=== PATIENT | male | born 1975 | race Caucasian/White ===

== ENCOUNTER 2021-02-14 08:30 | Inpatient (IN) ==
--- NOTE | 2021-02-14 08:54 | Emergency Department Note ---
Impression & Plan Pneumoperitoneum, Perforated abdominal viscus ED Provider Note NAME: APARNA NORMAN AGE: 45 SEX: M : 1975 ARRIVES VIA: Walk-In INFORMANT: Patient, ED PROVIDER(S): Isma Senior MD Chief Complaint: Abdominal pain HPI: Patient does present with concern for abdominal pain that he describes in the lower midline abdomen ongoing for 6 days. Patient has had intermittent fevers as high as 105 but with hypothermia as low as 90. Patient has been feeling more fatigable. No history of tick bites, Lyme's, or or thyroid issues. Patient does have a remote history of a ruptured appendicitis as well as prior bowel obstruction. Patient states he has been passing stool and denies any blood in the urine or stool. Patient has been having loose stools on occasion. No dietary changes but the patient does have mild discomfort when he eats or drinks. Patient has taken Advil for the fever which has improved the fever but not the pain. Patient denies any testicular pain or swelling. Patient is not had any nausea or vomiting. Patient states with the prior bowel obstruction he did have associated nausea and vomiting. Patient does have heightened concern given the prior history of ruptured appendicitis. Patient denies any heavy lifting twisting or turning. The patient states that he might have small midline hernias. Patient does use tobacco but denies any alcohol or drug use. Patient is vaccinated for COVID-19. ROS: See HPI for pertinent positives and negatives. A total of 10 systems were revi ewed and otherwise negative. Past medical history: See below Surgical history: See below Social history: See below Physical Exam: GENERAL: NAD, wearing a mask, non-toxic. EYE EXAM: Normal conjunctiva. PERRL, no anisocoria and EOM's grossly intact w/o pain. NECK: Supple, no nuchal rigidity, no adenopathy, non-tender. No signs of meningismus. LUNGS: Clear to auscultation. Normal chest wall mechanics. HEART: NSR, no MRG. ABDOMEN: Abdomen soft, left lower quadrant and suprapubic discomfort without right lower quadrant pain, no upper abdominal pain, normo-active bowel sounds, no masses, no rebound or guarding. BACK: No CVA TTP. SKIN: No rashes and no bruising. UPPER EXTREMITIES: Upper extremities are grossly normal. LOWER EXTREMITIES: Grossly normal, no edema. NEURO EXAM: A&O x3, cranial nerves II-XII grossly intact, normal speech, moves all 4 extremities on command w/o issue. Differential diagnoses: Appendicitis, testicular torsion, infections, diverticulitis, UTI, obstruction, mesenteric ischemia, aortic pathology, inflammatory bowel disease, renal colic, PUD, pancreatitis, biliary pathology, hernia, volvulus, constipation, as well as other pathologies. Course: Patient was seen and evaluated the bedside. Full history physical exam was performed. Imaging Studies: See Below [Cardiac monitoring: An order was placed for continuous cardiac monitoring. The monitor shows a rate of 97 with sinus rhythm. MDM: Patient's blood work did show a white count of 16. Patient's hemoglobin 13.7 with a normal platelet count. Kidney function is unremarkable. Urinalysis does not show evidence of obvious infection or blood. Patient CT shows retroperitoneal free air. I did speak the on-call radiologist Dr. Gonzalez about this was noted that the patient likely has perforated viscus. I did speak with the on-call surgery team Pamela Denny PA-C and subsequently Dr. Jackson. The patient was to be taken to the operating room. Patient was admitted to the general surgical service. Past Med/Surg History Medical History Bowel obstruction Ruptured appendicitis Surgical History S/P appendectomy Social History Smoking Status: Current some day smoker Hx Alcohol Use: No Hx Substance Use: No Feels Safe at Home: Yes Immunizations: Vaccinated for COVID-19. Allergies Allergies Allergy/AdvReac Type Severity Reaction Status Date / Time No Known Allergies Allergy Unverified 02/14/21 09:18 Home Meds Home Medications Medication Instructions Recorded Confirmed multivitamin 1 tab PO DAILY 02/14/21 02/14/21 Results & Data (ED) Vital Signs Vital Signs - 24 hr 02/14/21 08:48 02/14/21 09:30 02/14/21 10:30 Temperature 36.8 C Temperature Source Oral Pulse Rate 114 H 110 H Pulse Rate [Left Finger] 91 H Pulse Rhythm Regular Regular Pulse Rhythm [Left Finger] Pulse Strength Normal Pulse Strength [Left Finger] Respiratory Rate 18 20 12 Respiratory Effort / Characteristics Non-Labored Spontaneous Respiratory Depth Normal Respiratory Pattern Regular Blood Pressure 189/92 H Blood Pressure [Left Arm] 136/86 Blood Pressure Mean 124 Blood Pressure Mean [Left Arm] 102 Blood Pressure Position Sitting Blood Pressure Position [Left Arm] Sitting Pulse Oximetry 98 98 97 Oxygen Delivery Method Room Air Sepsis Recent Fever Within 48 Hours No Sepsis New/Unexplained Change in Mental Status No Sepsis Action Taken by Nursing No Action Required 02/14/21 11:34 02/14/21 12:21 Temperature 37.5 C 37.2 C Temperature Source Oral Oral Pulse Rate Pulse Rate [Left Finger] 110 H 104 H Pulse Rhythm Pulse Rhythm [Left Finger] Regular Regular Pulse Strength Pulse Strength [Left Finger] Normal Normal Respiratory Rate 20 20 Respiratory Effort / Characteristics Non-Labored Spontaneous Non-Labored Spontaneous Respiratory Depth Normal Normal Respiratory Pattern Regular Blood Pressure Blood Pressure [Left Arm] 164/99 H 128/82 Blood Pressure Mean Blood Pressure Mean [Left Arm] 120 97 Blood Pressure Position Blood Pressure Position [Left Arm] Sitting Semi-fowlers Pulse Oximetry 98 96 Oxygen Delivery Method Room Air Room Air Sepsis Recent Fever Within 48 Hours Sepsis New/Unexplained Change in Mental Status Sepsis Action Taken by Group Home Medications Current Medication List: was personally reviewed by me Laboratory Data Attestation: I reviewed the patient's lab results. Result diagrams: 02/14/21 09:30 02/14/21 09:30 Lab Results 02/14/21 02/14/21 02/14/21 Range/Units 09:30 09:30 09:30 WBC 16.36 H (4.8-10.8) K/uL RBC 4.72 (4.7-6.1) M/uL Hgb 13.7 L (14.0-18.0) g/dL Hct 39.7 L (42-52) % MCV 84.1 (80-100) fL MCH 29.0 (25-34) pg MCHC 34.5 (32-36) g/dL RDW Std Deviation 45.1 (36.4-46.3) fL RDW Coeff of Ena 14.5 (11.5-14.5) % Plt Count 245 (130-400) K/uL MPV 9.4 (7.4-10.4) fL Immature Gran % (Auto) 0.4 % Neut % (Auto) 77.9 % Lymph % (Auto) 10.8 % Doddridge % (Auto) 8.9 % Eos % (Auto) 1.8 % Baso % (Auto) 0.2 % Neut # (Auto) 12.75 H (1.4-6.5) K/uL Lymph # (Auto) 1.76 (1.2-3.4) K/uL Dod[place]idge # (Auto) 1.46 H (0.11-0.59) K/uL Eos # (Auto) 0.29 (0-0.5) K/uL Baso # (Auto) 0.03 (0-0.2) K/uL Immature Gran # (Auto) 0.07 H (0.00-0.02) K/uL Sodium 138 (136-145) mmol/L Potassium 4.1 (3.5-5.1) mmol/L Chloride 108 H (98-107) mmol/L Carbon Dioxide 20 L (21-32) mmol/L Anion Gap 10.0 (3-11) BUN 17 (7-18) mg/dl Creatinine 1.16 (0.6-1.4) mg/dl Est Cr Clr Drug Dosing 109.8 ml/min Est GFR ( Amer) 88.9 ml/min Est GFR (Non-Af Amer) 76.7 ml/min BUN/Creatinine Ratio 14.3 (10-20) Glucose 114 H (70-99) mg/dl Calcium 8.9 (8.5-10.1) mg/dl Total Bilirubin 0.6 (0.2-1) mg/dl AST 23 (15-37) U/L ALT 43 (12-78) U/L Alkaline Phosphatase 90 (45-117) U/L Total Protein 7.6 (6.4-8.2) gm/dl Albumin 2.8 L (3.4-5.0) gm/dl Globulin 4.8 H (2.5-4.0) gm/dl Albumin/Globulin Ratio 0.6 L (0.9-2) Lipase 131 (73-393) U/L TSH 1.780 (0.300-4.500) uIu/ml Urine Color Dark Yellow Urine Appearance Clear (Clear) Urine pH 5.5 (4.5-7.5) Ur Specific Taylor 1.026 (1.000-1.030) Urine Protein Trace H (Negative) Urine Glucose (UA) Negative (Negative) Urine Ketones 1+ H (Negative) Urine Blood 1+ H (Negative) Urine Nitrite Negative (Negative) Urine Bilirubin 1+ H (Negative) Urine Urobilinogen Positive H (Negative) Ur Leukocyte Esterase Negative (Negative) Urine WBC (Auto) 1-5 (0-5) /hpf Urine RBC (Auto) 0-4 (0-4) /hpf U Hyaline Cast (Auto) 5-10 H (0-5) /lpf U Epithel Cells (Auto) 10-20 H (0-5) /lpf Urine Bacteria (Auto) Negative (Negative) COVID-19 Eval Order SARS-CoV-2 (PCR) (Negative) 02/14/21 02/14/21 Range/Units 11:14 11:14 WBC (4.8-10.8) K/uL RBC (4.7-6.1) M/uL Hgb (14.0-18.0) g/dL Hct (42-52) % MCV (80-100) fL MCH (25-34) pg MCHC (32-36) g/dL RDW Std Deviation (36.4-46.3) fL RDW Coeff of Ena (11.5-14.5) % Plt Count (130-400) K/uL MPV (7.4-10.4) fL Immature Gran % (Auto) % Neut % (Auto) % Lymph % (Auto) % Doddridge % (Auto) % Eos % (Auto) % Baso % (Auto) % Neut # (Auto) (1.4-6.5) K/uL Lymph # (Auto) (1.2-3.4) K/uL Dod[place]idge # (Auto) (0.11-0.59) K/uL Eos # (Auto) (0-0.5) K/uL Baso # (Auto) (0-0.2) K/uL Immature Gran # (Auto) (0.00-0.02) K/uL Sodium (136-145) mmol/L Potassium (3.5-5.1) mmol/L Chloride (98-107) mmol/L Carbon Dioxide (21-32) mmol/L Anion Gap (3-11) BUN (7-18) mg/dl Creatinine (0.6-1.4) mg/dl Est Cr Clr Drug Dosing ml/min Est GFR ( Amer) ml/min Est GFR (Non-Af Amer) ml/min BUN/Creatinine Ratio (10-20) Glucose (70-99) mg/dl Calcium (8.5-10.1) mg/dl Total Bilirubin (0.2-1) mg/dl AST (15-37) U/L ALT (12-78) U/L Alkaline Phosphatase (45-117) U/L Total Protein (6.4-8.2) gm/dl Albumin (3.4-5.0) gm/dl Globulin (2.5-4.0) gm/dl Albumin/Globulin Ratio (0.9-2) Lipase (73-393) U/L TSH (0.300-4.500) uIu/ml Urine Color Urine Appearance (Clear) Urine pH (4.5-7.5) Ur Specific Taylor (1.000-1.030) Urine Protein (Negative) Urine Glucose (UA) (Negative) Urine Ketones (Negative) Urine Blood (Negative) Urine Nitrite (Negative) Urine Bilirubin (Negative) Urine Urobilinogen (Negative) Ur Leukocyte Esterase (Negative) Urine WBC (Auto) (0-5) /hpf Urine RBC (Auto) (0-4) /hpf U Hyaline Cast (Auto) (0-5) /lpf U Epithel Cells (Auto) (0-5) /lpf Urine Bacteria (Auto) (Negative) COVID-19 Eval Order Covid19 at [facility] SARS-CoV-2 (PCR) NEGATIVE (Negative) Administered Medications Discontinued Medications Cefoxitin Sodium (Cefoxitin Sod 1 Gm Vial) Confirm Administered Dose 2,000 mg .ROUTE .STK-MED ONE Stop: 02/14/21 11:41 Last Admin: 02/14/21 15:04 Dose: 2,000 mg Documented by: [id number] Sodium Chloride (Nss) 500 mls @ 999 mls/hr IV .Q31M STA Stop: 02/14/21 09:45 Last Infusion: 02/14/21 10:07 Dose: 0 mls/hr Documented by: [id number] Admin: 02/14/21 09:36 Dose: 999 mls/hr Documented by: [id number] Piperacillin Sod/Tazobactam Sod (Zosyn) 4.5 gm in 120 mls @ 240 mls/hr IV NOW ONE Stop: 02/14/21 11:17 Last Infusion: 02/14/21 11:45 Dose: 0 mls/hr Documented by: [id number] Admin: 02/14/21 11:12 Dose: 240 mls/hr Documented by: [id number] Sodium Chloride (Nss 1000ml) 1,000 mls @ 999 mls/hr IV .Q1H1M ONE Stop: 02/14/21 11:48 Last Infusion: 02/14/21 11:57 Dose: 0 mls/hr Documented by: [id number] Admin: 02/14/21 10:56 Dose: 999 mls/hr Documented by: [id number] Ioversol (Optiray 320 100ml) 96 ml IV ONCE ONE Stop: 02/14/21 10:26 Last Admin: 02/14/21 10:26 Dose: 96 ml Documented by: [id number] Imaging Data Radiologist's Impression: Abdomen/Pelvis CT 02/14/21 09:15 CT SCAN OF THE ABDOMEN AND PELVIS WITH IV CONTRAST CLINICAL HISTORY: Lower abdominal pain. COMPARISON STUDY: No priors. TECHNIQUE: Following the IV administration of 96 cc of Optiray 320, CT scan of the abdomen and pelvis is performed from the lung bases to the proximal femora. Images are reviewed in the axial, sagittal, and coronal planes. IV contrast was administered without complication. A dose lowering technique was utilized adhering to the principles of ALARA. The examination is degraded by large body habitus, and streak artifact from the body wall abutting the CT gantry. CT DOSE: 2286.97 mGy.cm FINDINGS: Lung bases: The heart is normal in size and without pericardial effusion. Pneumomediastinum is noted in the lower chest. Extrapleural gas is seen at the posterior left lung base. The lung bases are clear. There is a tiny hiatal hernia. Liver: The contrast-enhanced liver is enlarged, measuring 23 cm in length. The liver demonstrates diffusely diminished attenuation consistent with hepatic steatosis. There is no intrahepatic biliary ductal dilatation. The hepatic veins and portal veins are patent. Gallbladder: Unremarkable. Spleen: The spleen is enlarged measuring 16.3 cm in length. Pancreas: Unremarkable. Adrenal glands: Unremarkable. Kidneys: The contrast enhanced kidneys are normal in size and without hydronephrosis. The kidneys enhance symmetrically. Abdominal vasculature: The abdominal aorta is normal in course and caliber noting mild to moderate and age advanced atherosclerotic calcification. Bowel: There is no bowel obstruction. There is mild colonic diverticulosis without definitive CT evidence of acute diverticulitis. There are mildly inflamed looking loops of proximal jejunum in the midabdomen. The appendix is not identified. Peritoneum/retroperitoneum: There is a a large volume of predominantly retroperitoneal free air which extends from the lower chest into the left groin. Gas is seen in the left renal hilum. There is inflammatory process identified in the posterior left midabdomen with trace fluid, locules of gas, and inflammatory stranding. No organized/drainable fluid collection is identified. There is a midline surgical scar, with a second surgical scar seen in the right ventral pelvis. There is a complex multiloculated fat-containing umbilical/periumbilical hernia. There are also supraumbilical hernias. Lymphadenopathy: None. Pelvic viscera: The bladder, prostate, and seminal vesicles are normal as visualized. Skeletal structures: There is mild lumbosacral spondylosis. No lytic or blastic lesions are seen. IMPRESSION: 1. There is a large volume of predominantly retroperitoneal free air which extends from the lower chest to the left groin. 2. There is associated inflammatory change within the posterior left midabdomen with trace fluid and multiloculated gas. This is located adjacent to loops of mildly inflamed appearing proximal small bowel, and a perforated viscus is the diagnosis of exclusion. A small bowel diverticulitis could potentially have this appearance. Although the site of perforation is not clearly delineated, given the retroperitoneal location the duodenum/proximal small bowel or colon are considered most likely. Surgical consultation is advised. 3. No organized/drainable fluid collection is identified at this time to indicate abscess. 4. There is no bowel obstruction. 5. Hepatomegaly and hepatic steatosis. 6. Splenomegaly. 7. Age advanced atherosclerotic calcification of the abdominal aorta. 8. Additional findings as above. ACT 112: Negative or not required by law. Electronically signed by: Jamie Gonzalez M.D. 02/14/2021 10:58 AM Discharge Plan Visit Data Chief Complaint: Abdominal Pain Stated Complaint: BAD BELLY PAIN ED Provider: Isma Senior Discharge Problem: Pneumoperitoneum, Perforated abdominal viscus Patient Disposition: Admitted As Inpatient Discharge Instructions Interventions: ED Discharge Assessment Last Done: 02/14/21 11:59
[2021-02-14] MEDS ORDERED: SODIUM CHLORIDE 0.9% 500 ML IV STA (09:15)
[2021-02-14 09:43] LABS: Basophils # (auto) 0.03 K/uL (0-0.2); Basophils % (auto) 0.2 %; Eosinophils # (auto) 0.29 K/uL (0-0.5); Eosinophils % (auto) 1.8 %; Hematocrit (blood only) 39.7 % (42-52); Hemoglobin 13.7 g/dL (14.0-18.0); Immature Granulocytes # (auto) 0.07 K/uL (0.00-0.02); Immature Granulocytes % (auto) 0.4 %; Lymphocytes # (auto) 1.76 K/uL (1.2-3.4); Lymphocytes % (auto) 10.8 %; Mean Corpuscular Hgb Conc 34.5 g/dL (32-36); Mean Corpuscular Volume 84.1 fL (80-100); Mean Platelet Volume 9.4 fL (7.4-10.4); Monocytes # (auto) 1.46 K/uL (0.11-0.59); Monocytes % (auto) 8.9 %; Neutrophils # (auto) 12.75 K/uL (1.4-6.5); Neutrophils % (auto) 77.9 %; Platelet Count 245 K/uL (130-400); RDW Coefficient of Variation 14.5 % (11.5-14.5); RDW Standard Deviation 45.1 fL (36.4-46.3); Red Blood Count 4.72 M/uL (4.7-6.1); White Blood Count 16.36 K/uL (4.8-10.8)
[2021-02-14 10:04] LABS: Albumin Level 2.8 gm/dl (3.4-5.0); BUN Creatinine Ratio 14.3 (10-20); Calcium 8.9 mg/dl (8.5-10.1); Creatinine Clr Calc Pharmacy 109.8 ml/min; Est GFR (African American) 88.9 ml/min; Est GFR (Non-African American) 76.7 ml/min; Potassium 4.1 mmol/L (3.5-5.1)
[2021-02-14 10:06] LABS: Appearance Urine Clear (Clear); Bacteria Urine Automated Negative (Negative); Blood Urine 1+ (Negative); Color Urine Dark Yellow; Glucose Urine UA Negative (Negative); Ketones Urine 1+ (Negative); Leukocyte Esterase Urine Negative (Negative); Nitrite Urine Negative (Negative); Protein Urine Trace (Negative); RBC Urine Automated 0-4 /hpf (0-4); Specific Gravity Urine 1.026 (1.000-1.030); Urobilinogen Urine Positive (Negative); pH Urine 5.5 (4.5-7.5)
[2021-02-14 10:09] LABS: Bilirubin Urine 1+ (Negative)
[2021-02-14 10:14] LABS: Albumin Globulin Ratio 0.6 (0.9-2); Bilirubin,Total 0.6 mg/dl (0.2-1); Globulin 4.8 gm/dl (2.5-4.0); Thyroid Stimulating Hormone 1.78 uIu/ml (0.300-4.500); Total Protein 7.6 gm/dl (6.4-8.2)
[2021-02-14] MEDS ORDERED: OPTIRAY 320 100ml IV ONE (10:25)
[2021-02-14] MEDS ORDERED: PIPERACILL/TAZOBAC CONSULT ACTIVE PRN ×2 (10:48→18:07)
[2021-02-14] MEDS ORDERED: PIPERACILLIN/TAZOBACTAM 4.5 GM/120 ML BAG IV ONE (10:48)
[2021-02-14] MEDS ORDERED: SODIUM CHLORIDE 0.9% 1000ML 1,000 ML IV ONE (10:48)
--- NOTE | 2021-02-14 10:59 | CT Scan Report ---
CT SCAN OF THE ABDOMEN AND PELVIS WITH IV CONTRAST CLINICAL HISTORY: Lower abdominal pain. COMPARISON STUDY: No priors. TECHNIQUE: Following the IV administration of 96 cc of Optiray 320, CT scan of the abdomen and pelvi s is performed from the lung bases to the proximal femora. Images are reviewed in the axial, sagittal , and coronal planes. IV contrast was administered without complication. A dose lowering technique wa s utilized adhering to the principles of ALARA. The examination is degraded by large body habitus, an d streak artifact from the body wall abutting the CT gantry. CT DOSE: 2286.97 mGy.cm FINDINGS: Lung bases: The heart is normal in size and without pericardial effusion. Pneumomediastinum is noted in the lower chest. Extrapleural gas is seen at the posterior left lung base. The lung bases are skye r. There is a tiny hiatal hernia. Liver: The contrast-enhanced liver is enlarged, measuring 23 cm in length. The liver demonstrates dif fusely diminished attenuation consistent with hepatic steatosis. There is no intrahepatic biliary rivera daphney dilatation. The hepatic veins and portal veins are patent. Gallbladder: Unremarkable. Spleen: The spleen is enlarged measuring 16.3 cm in length. Pancreas: Unremarkable. Adrenal glands: Unremarkable. Kidneys: The contrast enhanced kidneys are normal in size and without hydronephrosis. The kidneys enh ance symmetrically. Abdominal vasculature: The abdominal aorta is normal in course and caliber noting mild to moderate an d age advanced atherosclerotic calcification. Bowel: There is no bowel obstruction. There is mild colonic diverticulosis without definitive CT evid ence of acute diverticulitis. There are mildly inflamed looking loops of proximal jejunum in the mida bdomen. The appendix is not identified. Peritoneum/retroperitoneum: There is a a large volume of predominantly retroperitoneal free air which extends from the lower chest into the left groin. Gas is seen in the left renal hilum. There is infl ammatory process identified in the posterior left midabdomen with trace fluid, locules of gas, and in flammatory stranding. No organized/drainable fluid collection is identified. There is a midline surgi tana scar, with a second surgical scar seen in the right ventral pelvis. There is a complex multilocul ated fat-containing umbilical/periumbilical hernia. There are also supraumbilical hernias. Lymphadenopathy: None. Pelvic viscera: The bladder, prostate, and seminal vesicles are normal as visualized. Skeletal structures: There is mild lumbosacral spondylosis. No lytic or blastic lesions are seen. IMPRESSION: 1. There is a large volume of predominantly retroperitoneal free air which extends from the lower [address] to the left groin. 2. There is associated inflammatory change within the posterior left midabdomen with trace fluid and multiloculated gas. This is located adjacent to loops of mildly inflamed appearing proximal small bow el, and a perforated viscus is the diagnosis of exclusion. A small bowel diverticulitis could potenti ally have this appearance. Although the site of perforation is not clearly delineated, given the retr operitoneal location the duodenum/proximal small bowel or colon are considered most likely. Surgical consultation is advised. 3. No organized/drainable fluid collection is identified at this time to indicate abscess. 4. There is no bowel obstruction. 5. Hepatomegaly and hepatic steatosis. 6. Splenomegaly. 7. Age advanced atherosclerotic calcification of the abdominal aorta. 8. Additional findings as above. ACT 112: Negative or not required by law. Electronically signed by: Jamie Gonzalez M.D. 02/14/2021 10:58 AM
[2021-02-14] MEDS ORDERED: ONDANSETRON INJ 2 MG/ML 2 ML VIAL ONE ×2 (12:10)
[2021-02-14] MEDS ORDERED: GLYCOPYRROLATE 0.2 MG/ML VIAL ONE ×2 (12:10)
[2021-02-14] MEDS ORDERED: MIDAZOLAM HCL 1 MG/ML 2ML VIAL ONE (12:10)
[2021-02-14] MEDS ORDERED: PROPOFOL IV EMULSION 10 MG/ML 20 ML VIAL IV ONE (12:10)
[2021-02-14] MEDS ORDERED: LARYING-O-JET KIT (LTA) ONE (12:10)
[2021-02-14] MEDS ORDERED: HYDROmorphone INJ 2 MG/ML SYR/VIAL ONE (12:10)
[2021-02-14] MEDS ORDERED: DEXAMETHASONE SOD INJ 4 MG/ML VIAL ONE (12:10)
[2021-02-14] MEDS ORDERED: SODIUM CHLORIDE 0.9% INJ 10 ML VIAL ONE (12:10)
[2021-02-14] MEDS ORDERED: SUCCINYLCHOLINE CHLORIDE 20 MG/ML 10 ML VIAL IV ONE (12:10)
[2021-02-14] MEDS ORDERED: NEOSTIGMINE METHYLSULFATE 1 MG/ML 10ML VIAL ONE (12:10)
[2021-02-14] MEDS ORDERED: ROCURONIUM BROMIDE 10 MG/ML 5 ML VIAL IV ONE ×6 (12:10→13:58)
[2021-02-14] MEDS ORDERED: LIDOCAINE 2% 2 ML VIAL/AMP(20MG/ML) INFIL ONE (12:10)
[2021-02-14] MEDS ORDERED: ACETAMINOPHEN 1000 MG/100 ML IV IV ONE (12:16)
[2021-02-14] MEDS ORDERED: BUPIVACAINE 0.5 % 5 MG/1 ML MPF 30ML VIAL ONE (12:34)
[2021-02-14] MEDS ORDERED: BUPIVACAINE LIPOSOME 1.3% 266 MG/20 ML VIAL ONE (12:37)
--- NOTE | 2021-02-14 12:38 | History & Physical Report ---
Date of Service February 14, 2021 Assessment & Plan (1) Pneumoperitoneum: (2) Perforated abdominal viscus: Plan: 45 year old male with history of ruptured appendicitis in 1999, SBO with ex lap 2 years ago presented to emergency department due to abdominal pain for 6 days with associated fever. CT scan showing evidence of retroperitoneal pneumoperitoneum extending down to the left groin with no fluid collection. Possibly perforated small bowel or colon as etiology. Leukocytosis of 16K. Abdomen tender in lower abdomen more so in LLQ. Plan: Dr. Jackson discussed CT scan findings with patient and significant other present in ER room. Given findings of pneumoperitoneum, likely has ruptured viscus that requires surgical intervention. Could be small or large bowel. Discussed need for exploratory laparotomy, possible bowel resection, possible ostomy. Dr. Jackson discussed risks of procedure and informed consent obtained COVID preop test pending IV Zosyn keep npo Dr. Jackson has seen and examined patient, obtained consent and agrees with above. History of Present Illness Chief Complaint: Lower abdominal pain Primary Care Provider: NO PCP Jian is a 45 year-old male with history of ruptured appendicitis in 1999 and history of SBO requiring exploratory laparotomy 2 years ago [facility] pain that began about 6 days ago. Associated fever with temperature up to 105. No nausea or vomiting. Denies of any changes in bowel habits. Pain mostly located in lower abdomen and continued to increase in severity. No difficulty urinating. Allergies Allergy/AdvReac Type Severity Reaction Status Date / Time No Known Allergies Allergy Unverified 02/14/21 09:18 Home Medications Medication Instructions Recorded Confirmed Type multivitamin 1 tab PO DAILY 02/14/21 02/14/21 History Past Med/Surg History Medical History (Updated 02/14/21 @ 12:41 by Pamela Denny PA-C) Bowel obstruction Ruptured appendicitis Surgical History (Updated 02/14/21 @ 09:20 by Isma Senior MD) S/P appendectomy Social History (Updated 02/14/21 @ 09:20 by Isma Senior MD) Smoking Status: Current some day smoker Hx Alcohol Use: No Hx Substance Use: No Feels Safe at Home: Yes Physical Exam Constitutional: WD/WN, vitals as above + morbidly obese; no acute distress and not ill appearing Respiratory: normal respiratory effort, lungs clear to auscultation Cardiovascular: RRR, no murmur, no edema Gastrointestinal (Abdomen): Inspection/Auscultation: abdomen normal to inspection and + abdominal surgical scar (midline laparotomy scar and right paramedian scar); abdomen not distended Percussion/Palpation: + abdomen tender (mostly tender in LLQ, no rigidity, no peritonitis) and abdomen soft; no guarding and abdomen not rigid Skin: no rashes, warm and dry Psychiatric: A+Ox3, euthymic affect Results & Data Results & Data ([facility]) Vital Signs (Past 12 Hours) Vital Signs Temp Pulse Pulse Resp BP BP Pulse Ox 02/14/21 12:21 37.2 C 104 H 20 128/82 96 02/14/21 11:34 37.5 C 110 H 20 164/99 H 98 02/14/21 10:30 91 H 12 136/86 97 02/14/21 09:30 110 H 20 98 02/14/21 08:48 36.8 C 114 H 18 189/92 H 98 Laboratory Results 02/14/21 02/14/21 02/14/21 Range/Units 11:14 11:14 09:30 WBC (4.8-10.8) K/uL RBC (4.7-6.1) M/uL Hgb (14.0-18.0) g/dL Hct (42-52) % MCV (80-100) fL MCH (25-34) pg MCHC (32-36) g/dL RDW Std Deviation (36.4-46.3) fL RDW Coeff of Ena (11.5-14.5) % Plt Count (130-400) K/uL MPV (7.4-10.4) fL Immature Gran % (Auto) % Neut % (Auto) % Lymph % (Auto) % [place] % (Auto) % Eos % (Auto) % Baso % (Auto) % Neut # (Auto) (1.4-6.5) K/uL Lymph # (Auto) (1.2-3.4) K/uL [place] # (Auto) (0.11-0.59) K/uL Eos # (Auto) (0-0.5) K/uL Baso # (Auto) (0-0.2) K/uL Immature Gran # (Auto) (0.00-0.02) K/uL Sodium (136-145) mmol/L Potassium (3.5-5.1) mmol/L Chloride (98-107) mmol/L Carbon Dioxide (21-32) mmol/L Anion Gap (3-11) BUN (7-18) mg/dl Creatinine (0.6-1.4) mg/dl Est Cr Clr Drug Dosing ml/min Est GFR ( Amer) ml/min Est GFR (Non-Af Amer) ml/min BUN/Creatinine Ratio (10-20) Glucose (70-99) mg/dl Calcium (8.5-10.1) mg/dl Total Bilirubin (0.2-1) mg/dl AST (15-37) U/L ALT (12-78) U/L Alkaline Phosphatase (45-117) U/L Total Protein (6.4-8.2) gm/dl Albumin (3.4-5.0) gm/dl Globulin (2.5-4.0) gm/dl Albumin/Globulin Ratio (0.9-2) Lipase (73-393) U/L TSH (0.300-4.500) uIu/ml Urine Color Dark Yellow Urine Appearance Clear (Clear) Urine pH 5.5 (4.5-7.5) Ur Specific [place] 1.026 (1.000-1.030) Urine Protein Trace H (Negative) Urine Glucose (UA) Negative (Negative) Urine Ketones 1+ H (Negative) Urine Blood 1+ H (Negative) Urine Nitrite Negative (Negative) Urine Bilirubin 1+ H (Negative) Urine Urobilinogen Positive H (Negative) Ur Leukocyte Esterase Negative (Negative) Urine WBC (Auto) 1-5 (0-5) /hpf Urine RBC (Auto) 0-4 (0-4) /hpf U Hyaline Cast (Auto) 5-10 H (0-5) /lpf U Epithel Cells (Auto) 10-20 H (0-5) /lpf Urine Bacteria (Auto) Negative (Negative) COVID-19 Eval Order Covid19 at [facility] SARS-CoV-2 (PCR) NEGATIVE (Negative) 02/14/21 02/14/21 Range/Units 09:30 09:30 WBC 16.36 H (4.8-10.8) K/uL RBC 4.72 (4.7-6.1) M/uL Hgb 13.7 L (14.0-18.0) g/dL Hct 39.7 L (42-52) % MCV 84.1 (80-100) fL MCH 29.0 (25-34) pg MCHC 34.5 (32-36) g/dL RDW Std Deviation 45.1 (36.4-46.3) fL RDW Coeff of Ena 14.5 (11.5-14.5) % Plt Count 245 (130-400) K/uL MPV 9.4 (7.4-10.4) fL Immature Gran % (Auto) 0.4 % Neut % (Auto) 77.9 % Lymph % (Auto) 10.8 % [place] % (Auto) 8.9 % Eos % (Auto) 1.8 % Baso % (Auto) 0.2 % Neut # (Auto) 12.75 H (1.4-6.5) K/uL Lymph # (Auto) 1.76 (1.2-3.4) K/uL [place] # (Auto) 1.46 H (0.11-0.59) K/uL Eos # (Auto) 0.29 (0-0.5) K/uL Baso # (Auto) 0.03 (0-0.2) K/uL Immature Gran # (Auto) 0.07 H (0.00-0.02) K/uL Sodium 138 (136-145) mmol/L Potassium 4.1 (3.5-5.1) mmol/L Chloride 108 H (98-107) mmol/L Carbon Dioxide 20 L (21-32) mmol/L Anion Gap 10.0 (3-11) BUN 17 (7-18) mg/dl Creatinine 1.16 (0.6-1.4) mg/dl Est Cr Clr Drug Dosing 109.8 ml/min Est GFR ( Amer) 88.9 ml/min Est GFR (Non-Af Amer) 76.7 ml/min BUN/Creatinine Ratio 14.3 (10-20) Glucose 114 H (70-99) mg/dl Calcium 8.9 (8.5-10.1) mg/dl Total Bilirubin 0.6 (0.2-1) mg/dl AST 23 (15-37) U/L ALT 43 (12-78) U/L Alkaline Phosphatase 90 (45-117) U/L Total Protein 7.6 (6.4-8.2) gm/dl Albumin 2.8 L (3.4-5.0) gm/dl Globulin 4.8 H (2.5-4.0) gm/dl Albumin/Globulin Ratio 0.6 L (0.9-2) Lipase 131 (73-393) U/L TSH 1.780 (0.300-4.500) uIu/ml Urine Color Urine Appearance (Clear) Urine pH (4.5-7.5) Ur Specific [place] (1.000-1.030) Urine Protein (Negative) Urine Glucose (UA) (Negative) Urine Ketones (Negative) Urine Blood (Negative) Urine Nitrite (Negative) Urine Bilirubin (Negative) Urine Urobilinogen (Negative) Ur Leukocyte Esterase (Negative) Urine WBC (Auto) (0-5) /hpf Urine RBC (Auto) (0-4) /hpf U Hyaline Cast (Auto) (0-5) /lpf U Epithel Cells (Auto) (0-5) /lpf Urine Bacteria (Auto) (Negative) COVID-19 Eval Order SARS-CoV-2 (PCR) (Negative) Diagnostic Findings CT SCAN OF THE ABDOMEN AND PELVIS WITH IV CONTRAST CLINICAL HISTORY: Lower abdominal pain. COMPARISON STUDY: No priors. TECHNIQUE: Following the IV administration of 96 cc of Optiray 320, CT scan of the abdomen and pelvis is performed from the lung bases to the proximal femora. Images are reviewed in the axial, sagittal, and coronal planes. IV contrast was administered without complication. A dose lowering technique was utilized adhering to the principles of ALARA. The examination is degraded by large body habitus, and streak artifact from the body wall abutting the CT gantry. CT DOSE: 2286.97 mGy.cm FINDINGS: Lung bases: The heart is normal in size and without pericardial effusion. Pneumomediastinum is noted in the lower chest. Extrapleural gas is seen at the posterior left lung base. The lung bases are clear. There is a tiny hiatal hernia. Liver: The contrast-enhanced liver is enlarged, measuring 23 cm in length. The liver demonstrates diffusely diminished attenuation consistent with hepatic steatosis. There is no intrahepatic biliary ductal dilatation. The hepatic veins and portal veins are patent. Gallbladder: Unremarkable. Spleen: The spleen is enlarged measuring 16.3 cm in length. Pancreas: Unremarkable. Adrenal glands: Unremarkable. Kidneys: The contrast enhanced kidneys are normal in size and without hydronephrosis. The kidneys enhance symmetrically. Abdominal vasculature: The abdominal aorta is normal in course and caliber noting mild to moderate and age advanced atherosclerotic calcification. Bowel: There is no bowel obstruction. There is mild colonic diverticulosis without definitive CT evidence of acute diverticulitis. There are mildly inflamed looking loops of proximal jejunum in the midabdomen. The appendix is not identified. Peritoneum/retroperitoneum: There is a a large volume of predominantly retroperitoneal free air which extends from the lower chest into the left groin. Gas is seen in the left renal hilum. There is inflammatory process identified in the posterior left midabdomen with trace fluid, locules of gas, and inflammatory stranding. No organized/drainable fluid collection is identified. There is a midline surgical scar, with a second surgical scar seen in the right ventral pelvis. There is a complex multiloculated fat-containing umbilical/periumbilical hernia. There are also supraumbilical hernias. Lymphadenopathy: None. Pelvic viscera: The bladder, prostate, and seminal vesicles are normal as visualized. Skeletal structures: There is mild lumbosacral spondylosis. No lytic or blastic lesions are seen. IMPRESSION: 1. There is a large volume of predominantly retroperitoneal free air which extends from the lower chest to the left groin. 2. There is associated inflammatory change within the posterior left midabdomen with trace fluid and multiloculated gas. This is located adjacent to loops of mildly inflamed appearing proximal small bowel, and a perforated viscus is the diagnosis of exclusion. A small bowel diverticulitis could potentially have this appearance. Although the site of perforation is not clearly delineated, given the retroperitoneal location the duodenum/proximal small bowel or colon are considered most likely. Surgical consultation is advised. 3. No organized/drainable fluid collection is identified at this time to indicate abscess. 4. There is no bowel obstruction. 5. Hepatomegaly and hepatic steatosis. 6. Splenomegaly. 7. Age advanced atherosclerotic calcification of the abdominal aorta. 8. Additional findings as above. Code Status & VTE Plan VTE Prophylaxis Plan VTE Prophylaxis will be ordered: Yes
--- NOTE | 2021-02-14 13:42 | Anesthesiology Consultation ---
Date of Service February 14, 2021 Assessment & Plan Chart Review Chart Review: Acceptable Risk for Surgery and Patient NOT seen in Pre Admission Testing Consults Requested none ASA ASA3 Proposed Anesthesia Anesthesia Type: General Regional Regional Laterality: Bilateral Site: Transversus Abdominal Plane Risk / Benefits Reviewed With: PT / POA / Parent / Guardian, Accepts Plan and Informed Consent Obtained History Surgery Operation Date: 02/14/21 11:00 Proposed Procedures p Exploratory Laparotomy, Possible Bowel Resection, Possible Ostomy - Richard Jackson MD Height/Weight Height: 6 ft Weight: 204.5 kg Allergies Allergy/AdvReac Type Severity Reaction Status Date / Time No Known Allergies Allergy Unverified 02/14/21 09:18 Medications Home Medications Medication Instructions Recorded Confirmed Last Taken multivitamin 1 tab PO DAILY 02/14/21 02/14/21 Unknown NPO Date Last Intake of Fluids: 02/14/21 Time Last Intake of Fluids: 07:30 Last Intake of Fluids Comment: water only Date Last Intake of Solids: 02/13/21 Time Last Intake of Solids: 16:30 Past Medical History Medical History (Updated 02/14/21 @ 12:41 by Pamela Denny PA-C) Bowel obstruction Ruptured appendicitis Exercise / Class Metabolic Activity II 4-5 Yardwork/Stairs/Walk up hill Past Surgical History Surgical History (Updated 02/14/21 @ 09:20 by Isma Senior MD) S/P appendectomy Past Anesthesia History No Hx of Anesthesia Complications and No Family Hx of Anesthesia Complications History of PONV No Hx of PONV and No Hx of Motion Sickness Social History Smoking Status: Current some day smoker Hx Alcohol Use: No Hx Substance Use: No Physical Exam Vital Signs Last Vital Signs Temp 37.2 C 02/14/21 12:21 Pulse 104 H 02/14/21 12:21 Resp 20 02/14/21 12:21 BP 128/82 02/14/21 12:21 Pulse Ox 96 02/14/21 12:21 Constitutional + morbidly obese ENMT Mouth: no dentition abnormality Thyromental Distance: > or= 3.5 Finger Breadths Mallampati Class: II Neck normal visual inspection and + facial hair Respiratory normal respiratory effort Auscultation: lungs clear to auscultation bilaterally Cardiovascular Rate/Rhythm: regular rate and regular rhythm Psychiatric Orientation: alert Testing Laboratory Results 02/14/21 09:30 02/14/21 09:30 Urine Color Dark Yellow 02/14/21 09:30 Urine Appearance Clear (Clear) 02/14/21 09:30 Urine pH 5.5 (4.5-7.5) 02/14/21 09:30 Ur Specific [place] 1.026 (1.000-1.030) 02/14/21 09:30 Urine Protein Trace (Negative) H 02/14/21 09:30 Urine Glucose (UA) Negative (Negative) 02/14/21: Urine Ketones 1+ (Negative) H 02/14/21 09:30 Urine Nitrite Negative (Negative) 02/14/21 09:30 Ur Leukocyte Esterase Negative (Negative) 02/14/21 09:30 Urine WBC (Auto) 1-5 /hpf (0-5) 02/14/21 09:30 Urine RBC (Auto) 0-4 /hpf (0-4) 02/14/21 09:30 U Hyaline Cast (Auto) 5-10 /lpf (0-5) H 02/14/21 09:30 U Epithel Cells (Auto) 10-20 /lpf (0-5) H 02/14/21 09:30 Urine Bacteria (Auto) Negative (Negative) 02/14/21 09:30
[2021-02-14] MEDS ORDERED: PHENYLEPHRINE HCL 10 MG/ML VIAL ONE (13:58)
--- NOTE | 2021-02-14 15:14 | Post Operative Brief Note ---
Immediate Post Op Note v1 Date of Surgery February 14, 2021 Pre & Post Diagnosis Operation Date: 02/14/21 11:00 Pre-Op Diagnosis: Pneumoperitoneum, Perforated abdominal viscus. Post-Op Diagnosis: Pneumoperitoneum, Perforated abdominal viscus. I identified the patient and participated in the time-out.: Yes Procedure Operation Date: 02/14/21 11:00 Actual Procedures p Exploratory Laparotomy, Sigmoid Colon Resection, Ostomy(Not Applicable) - Richard Jackson MD Surgeon Richard Jackson MD Automatic Screwmaker LYNETTE Denny assisted with tissue retraction, closure Estimated Blood Loss 25 Findings Consistent with Post-Op Diagnosis Sigmoid colon diverticulitis with mesenteric/retroperitoneal abscess; Melo's procedure performed Drains Braden Catheter and Harry-Breen Drain (19fr round)
--- NOTE | 2021-02-14 15:21 | Operative Report ---
Post Operative Report Pre & Post Diagnosis Operation Date: 02/14/21 11:00 Pre-Op Diagnosis: Pneumoperitoneum, Perforated abdominal viscus. Post-Op Diagnosis: Pneumoperitoneum, Perforated abdominal viscus. I identified the patient and participated in the time-out.: Yes Procedure Operation Date: 02/14/21 11:00 Actual Procedures p Exploratory Laparotomy, Sigmoid Colon Resection, Ostomy(Not Applicable) - Richard Jackson MD Surgeon Richard Jackson MD Liquefaction Supervisor LYNETTE Denny assisted with tissue retraction, closure Estimated Blood Loss 25 Findings Consistent with Post-Op Diagnosis Sigmoid diverticulitis with mesenteric and retroperitoneal abscess. Cultures taken. Melo's procedure completed Specimens Sigmoid colon; cultures from abscess Drains 19 [place]ic round ROSALVA Anesthesia Type General Complications No immediate complications Indications Severe lower abdominal pain; free intraperitoneal and retroperitoneal air on CT scan Description of Procedure The patient was taken to the operating room, placed supine on the operating table. A timeout was performed, perioperative antibiotics were administered, SCD boots were placed. After adequate anesthesia and analgesia was obtained, the abdomen was prepped and draped in the normal sterile fashion. A midline incision was made with a 10 blade scalpel was carried down to the level of the subcutaneous tissue. The level of the fascia was obtained, the fascia was entered. Adhesions of the omentum to the anterior abdominal wall were encountered. We are slowly able to lyse the adhesions and dissected free the omentum from the abdominal wall. The incision was opened to its fullest extent, and the abdomen was explored. There was no murky or purulent fluid within the abdominal cavity. I found the distal sigmoid colon and started to run this back towards the proximal sigmoid colon. A very firm area was encountered in the mesentery just below the sigmoid colon. This tracked back into the retroperitoneum. There is a significant amount of induration there. The small bowel in the area was identified and run and was free of pathology. The decision was made to proceed with Melo's procedure. A BEBA stapler was used to transect the colon at the distal sigmoid. The LigaSure device was then used to take down the sigmoid mesentery back towards the proximal sigmoid. At this point a abscess cavity was entered, and a significant amount of purulent fluid was suctioned and sent off for fluid culture. The abscess cavity extended all the way back to the retroperitoneum. We continue to take the sigmoid mesentery until free of the area of perforation. The proximal sigmoid was then transected with a BEBA stapler. The sigmoid colon was mobilized off the white line of Toldt to allow enough length for an ostomy. Given his morbid obesity and his short mesentery, this was somewhat difficult. Finally enough length was obtained. The abdomen was copiously irrigated and suctioned free. A 19 [place]ic round ROSALVA drain was placed through separate stab incision on the right side and maneuvered into the abscess cavity. This was secured in place with a suture. A circular incision was made in the left lower quadrant and was carried down to level of fascia. Excess fat was removed. The fascia was opened in cruciate fashion on the anterior and posterior fascia. Using a Valente, was able to bring the proximal sigmoid out through this ostomy site onto the anterior abdominal wall. There was minimal tension. At this point the fascia was closed with a 0 PDS run tarah suture. The skin was closed with surgical clips. The ostomy was then matured with 3-0 Vicryl sutures. An ostomy appliance was applied. Dressings were applied. The patient tolerated the procedure without complication, and was transferred in stable condition to the PACU. All instrument, needle, and sponge counts were correct at the end of the case. My admin assistant was necessary throughout the procedure for tissue retraction, possible camera operation, and closure of the wounds. I understand that section 1842(b)(7)(D) of the Social Security act generally prohibits Medicare physician fee schedule payment for the services of assistants at surgery in teaching hospitals when qualified residents are available to furnish such services. I certify that the services for which payment is claimed were medically necessary and that no qualified resident was available to perform the services. I further understand that these services are subject to postpayment review by the Medicare carrier. I attest to the content of the Intraoperative Record and any orders documented therein. Any exceptions are noted below.
[2021-02-14] MEDS ORDERED: ONDANSETRON INJ 2 MG/ML 2 ML VIAL IV PRN ×2 (16:04→18:07)
[2021-02-14] MEDS ORDERED: KETOROLAC 30 MG/ML VIAL IV PRN (16:04)
[2021-02-14] MEDS ORDERED: fentaNYL citrate 100 MCG/2 ML VIAL IV PRN (16:04)
[2021-02-14] MEDS ORDERED: ATROPINE SULFATE 0.1 MG/ML 10ML SYR IV PRN (16:04)
[2021-02-14] MEDS ORDERED: HYDROmorphone INJ 2 MG/ML SYR/VIAL IV PRN (16:04)
[2021-02-14] MEDS ORDERED: PROMETHAZINE HCL 6.25 MG in SODIUM CHLORIDE 0.9% 50 ML IV PRN (16:04)
[2021-02-14] MEDS ORDERED: ePHEDrine sulfate 50 MG/ML AMP IV PRN (16:04)
--- NOTE | 2021-02-14 16:42 | Anesthesiology Progress Note ---
Date of Service February 14, 2021 Anesthesia Post Procedure Vital Signs Vital Signs: Temp Pulse Pulse Pulse Resp BP BP 02/14/21 16:35 81 17 134/72 02/14/21 16:25 78 16 132/73 02/14/21 16:15 85 18 141/69 H 02/14/21 16:05 83 16 134/76 02/14/21 15:55 87 17 144/80 H 02/14/21 15:45 89 18 143/73 H 02/14/21 15:39 36.2 C L 87 18 124/81 02/14/21 12:21 37.2 C 104 H 20 128/82 02/14/21 11:34 37.5 C 110 H 20 164/99 H 02/14/21 10:30 91 H 12 136/86 02/14/21 09:30 110 H 20 02/14/21 08:48 36.8 C 114 H 18 189/92 H Pulse Ox 02/14/21 16:35 93 02/14/21 16:25 93 02/14/21 16:15 94 02/14/21 16:05 95 02/14/21 15:55 94 02/14/21 15:45 97 02/14/21 15:39 96 02/14/21 12:21 96 02/14/21 11:34 98 02/14/21 10:30 97 02/14/21 09:30 98 02/14/21 08:48 98 Pain Intensity Abdomen: Pain Intensity: 4 Transfer of Care Handoff Completed per policy Notes Mental Status: alert / awake / arousable Patient Amnestic to Procedure: Yes Nausea / Vomiting: adequately controlled Pain: adequately controlled Airway Patency, RR, SpO2: stable & adequate BP & HR: stable & adequate Hydration State: stable & adequate Anesthetic Complications: no major complications apparent and Pt Satisfied with anesthetic care
[2021-02-14] MEDS ORDERED: NALOXONE HCL 0.4 MG/1 ML VIAL/CARP IV PRN (18:07)
[2021-02-14] MEDS: SODIUM CHLORIDE 0.9% 1000ML 1,000 ML IV SCH ×2 (18:23→19:46)
[2021-02-14] MEDS ORDERED: PIPERACILLIN/TAZOBACTAM 4.5 GM in DEXTROSE 5% 100 ML IV ONE (19:00)
[2021-02-14] MEDS: MoRPHine SULFATE PCA 30 MG/30 ML IV PRN (21:04)
[2021-02-15] MEDS: PIPERACILLIN/TAZOBACTAM 4.5 GM in DEXTROSE 5% 100 ML IV SCH ×3 (00:03→16:29)
[2021-02-15] MEDS: SODIUM CHLORIDE 0.9% 1000ML 1,000 ML IV SCH ×4 (03:01→18:26)
[2021-02-15] MEDS: MoRPHine SULFATE PCA 30 MG/30 ML IV PRN ×4 (03:14→22:23)
[2021-02-15 07:57] LABS: Basophils # (auto) 0.03 K/uL (0-0.2); Basophils % (auto) 0.2 %; Eosinophils # (auto) 0.01 K/uL (0-0.5); Eosinophils % (auto) 0.1 %; Hematocrit (blood only) 38.2 % (42-52); Hemoglobin 12.8 g/dL (14.0-18.0); Immature Granulocytes % (auto) 0.5 %; Lymphocytes # (auto) 1.64 K/uL (1.2-3.4); Lymphocytes % (auto) 8.9 %; Mean Corpuscular Hemoglobin 28.7 pg (25-34); Mean Corpuscular Hgb Conc 33.5 g/dL (32-36); Mean Corpuscular Volume 85.7 fL (80-100); Mean Platelet Volume 9.5 fL (7.4-10.4); Monocytes % (auto) 8.7 %; Neutrophils # (auto) 15.11 K/uL (1.4-6.5); Neutrophils % (auto) 81.6 %; Platelet Count 258 K/uL (130-400); RDW Coefficient of Variation 14.6 % (11.5-14.5); Red Blood Count 4.46 M/uL (4.7-6.1); White Blood Count 18.49 K/uL (4.8-10.8)
[2021-02-15 08:30] LABS: BUN Creatinine Ratio 14.4 (10-20); Calcium 8.5 mg/dl (8.5-10.1); Creatinine Clr Calc Pharmacy 146.9 ml/min; Est GFR (Non-African American) 75.9 ml/min; Potassium 4.6 mmol/L (3.5-5.1)
--- NOTE | 2021-02-15 09:43 | Surgery Progress Note ---
Date of Service February 15, 2021 Assessment & Plan (1) Pneumoperitoneum: (2) Perforated abdominal viscus: Plan: POD # 1 s/p exploratory laparotomy, sigmoid resection with end colostomy and Melo's pouch -afebrile, vitals stable - leukocytosis of 18K - postop pain controlled with [employer] - no colostomy output - adequate urine output, cloudy ney urine - blood cultures pending - abdominal culture showing gram + cocci, gram + and - bacilli Plan: Continue Morhpine [employer] prn pain Clear liquids advised to go slow Continue IV fluids Continue IV Zosyn Continue lindy drain to bulb suction SCDs and start Lovenox for DVT prophylaxis OOB to chair today d/c welch catheter PT/OT and case management consults will also consult wound care for ostomy care and help with ostomy teaching repeat am labs Dr. Jackson has seen and examined pt, agrees with above. Admission and Anticipated Discharge Date Admission Date: February 14, 2021 Subjective feeling okay incisional/abdominal soreness, preoperative pain has resolved no nausea or vomiting no chest pain or shortness of breath has not been out of bed yet Physical Exam Constitutional: WD/WN, vitals as above + morbidly obese and cooperative; no acute distress and not ill appearing Respiratory: normal respiratory effort; no respiratory distress, no labored breathing and no retractions Gastrointestinal (Abdomen): Inspection/Auscultation: abdomen normal to inspection, + abdominal surgical incision (midline laparotomy incision covered with dry gauze) and + abdominal surgical drain present (bloody serosanguineous); abdomen not distended Percussion/Palpation: + abdomen tender (at midline incision, appropriate postop) and abdomen soft; no guarding and abdomen not rigid LLE colostomy with bloody drainage, no stool, ostomy is pink, slight retracting in of skin level Skin: no rashes, warm and dry Psychiatric: Orientation: alert and oriented x 3 Results & Data ([facility]) Vital Signs (Past 12 Hours) Vital Signs Temp Pulse Pulse Resp BP Pulse Ox 02/15/21 07:17 36.5 C 84 18 153/83 H 94 02/15/21 06:15 85 02/15/21 04:41 36.4 C L 89 18 127/79 94 02/14/21 22:49 36.6 C 91 H 18 133/82 92 Laboratory Results 02/15/21 02/15/21 02/14/21 Range/Units 06:53 06:53 11:14 WBC 18.49 H (4.8-10.8) K/uL RBC 4.46 L (4.7-6.1) M/uL Hgb 12.8 L (14.0-18.0) g/dL Hct 38.2 L (42-52) % MCV 85.7 (80-100) fL MCH 28.7 (25-34) pg MCHC 33.5 (32-36) g/dL RDW Std Deviation 46.0 (36.4-46.3) fL RDW Coeff of Ena 14.6 H (11.5-14.5) % Plt Count 258 (130-400) K/uL MPV 9.5 (7.4-10.4) fL Immature Gran % (Auto) 0.5 % Neut % (Auto) 81.6 % Lymph % (Auto) 8.9 % [place] % (Auto) 8.7 % Eos % (Auto) 0.1 % Baso % (Auto) 0.2 % Neut # (Auto) 15.11 H (1.4-6.5) K/uL Lymph # (Auto) 1.64 (1.2-3.4) K/uL [place] # (Auto) 1.60 H (0.11-0.59) K/uL Eos # (Auto) 0.01 (0-0.5) K/uL Baso # (Auto) 0.03 (0-0.2) K/uL Immature Gran # (Auto) 0.10 H (0.00-0.02) K/uL Sodium 140 (136-145) mmol/L Potassium 4.6 (3.5-5.1) mmol/L Chloride 108 H (98-107) mmol/L Carbon Dioxide 26 (21-32) mmol/L Anion Gap 7.0 (3-11) BUN 17 (7-18) mg/dl Creatinine 1.17 (0.6-1.4) mg/dl Est Cr Clr Drug Dosing 146.9 ml/min Est GFR ( Amer) 88.0 ml/min Est GFR (Non-Af Amer) 75.9 ml/min BUN/Creatinine Ratio 14.4 (10-20) Glucose 116 H (70-99) mg/dl Calcium 8.5 (8.5-10.1) mg/dl Total Bilirubin (0.2-1) mg/dl AST (15-37) U/L ALT (12-78) U/L Alkaline Phosphatase (45-117) U/L Total Protein (6.4-8.2) gm/dl Albumin (3.4-5.0) gm/dl Globulin (2.5-4.0) gm/dl Albumin/Globulin Ratio (0.9-2) Lipase (73-393) U/L TSH (0.300-4.500) uIu/ml Urine Color Urine Appearance (Clear) Urine pH (4.5-7.5) Ur Specific [place] (1.000-1.030) Urine Protein (Negative) Urine Glucose (UA) (Negative) Urine Ketones (Negative) Urine Blood (Negative) Urine Nitrite (Negative) Urine Bilirubin (Negative) Urine Urobilinogen (Negative) Ur Leukocyte Esterase (Negative) Urine WBC (Auto) (0-5) /hpf Urine RBC (Auto) (0-4) /hpf U Hyaline Cast (Auto) (0-5) /lpf U Epithel Cells (Auto) (0-5) /lpf Urine Bacteria (Auto) (Negative) COVID-19 Eval Order SARS-CoV-2 (PCR) NEGATIVE (Negative) 02/14/21 02/14/21 02/14/21 Range/Units 11:14 09:30 09:30 WBC (4.8-10.8) K/uL RBC (4.7-6.1) M/uL Hgb (14.0-18.0) g/dL Hct (42-52) % MCV (80-100) fL MCH (25-34) pg MCHC (32-36) g/dL RDW Std Deviation (36.4-46.3) fL RDW Coeff of Ena (11.5-14.5) % Plt Count (130-400) K/uL MPV (7.4-10.4) fL Immature Gran % (Auto) % Neut % (Auto) % Lymph % (Auto) % [place] % (Auto) % Eos % (Auto) % Baso % (Auto) % Neut # (Auto) (1.4-6.5) K/uL Lymph # (Auto) (1.2-3.4) K/uL [place] # (Auto) (0.11-0.59) K/uL Eos # (Auto) (0-0.5) K/uL Baso # (Auto) (0-0.2) K/uL Immature Gran # (Auto) (0.00-0.02) K/uL Sodium 138 (136-145) mmol/L Potassium 4.1 (3.5-5.1) mmol/L Chloride 108 H (98-107) mmol/L Carbon Dioxide 20 L (21-32) mmol/L Anion Gap 10.0 (3-11) BUN 17 (7-18) mg/dl Creatinine 1.16 (0.6-1.4) mg/dl Est Cr Clr Drug Dosing 109.8 ml/min Est GFR ( Amer) 88.9 ml/min Est GFR (Non-Af Amer) 76.7 ml/min BUN/Creatinine Ratio 14.3 (10-20) Glucose 114 H (70-99) mg/dl Calcium 8.9 (8.5-10.1) mg/dl Total Bilirubin 0.6 (0.2-1) mg/dl AST 23 (15-37) U/L ALT 43 (12-78) U/L Alkaline Phosphatase 90 (45-117) U/L Total Protein 7.6 (6.4-8.2) gm/dl Albumin 2.8 L (3.4-5.0) gm/dl Globulin 4.8 H (2.5-4.0) gm/dl Albumin/Globulin Ratio 0.6 L (0.9-2) Lipase 131 (73-393) U/L TSH 1.780 (0.300-4.500) uIu/ml Urine Color Dark Yellow Urine Appearance Clear (Clear) Urine pH 5.5 (4.5-7.5) Ur Specific [place] 1.026 (1.000-1.030) Urine Protein Trace H (Negative) Urine Glucose (UA) Negative (Negative) Urine Ketones 1+ H (Negative) Urine Blood 1+ H (Negative) Urine Nitrite Negative (Negative) Urine Bilirubin 1+ H (Negative) Urine Urobilinogen Positive H (Negative) Ur Leukocyte Esterase Negative (Negative) Urine WBC (Auto) 1-5 (0-5) /hpf Urine RBC (Auto) 0-4 (0-4) /hpf U Hyaline Cast (Auto) 5-10 H (0-5) /lpf U Epithel Cells (Auto) 10-20 H (0-5) /lpf Urine Bacteria (Auto) Negative (Negative) COVID-19 Eval Order Covid19 at [facility] SARS-CoV-2 (PCR) (Negative) 02/14/21 Range/Units 09:30 WBC 16.36 H (4.8-10.8) K/uL RBC 4.72 (4.7-6.1) M/uL Hgb 13.7 L (14.0-18.0) g/dL Hct 39.7 L (42-52) % MCV 84.1 (80-100) fL MCH 29.0 (25-34) pg MCHC 34.5 (32-36) g/dL RDW Std Deviation 45.1 (36.4-46.3) fL RDW Coeff of Ena 14.5 (11.5-14.5) % Plt Count 245 (130-400) K/uL MPV 9.4 (7.4-10.4) fL Immature Gran % (Auto) 0.4 % Neut % (Auto) 77.9 % Lymph % (Auto) 10.8 % [place] % (Auto) 8.9 % Eos % (Auto) 1.8 % Baso % (Auto) 0.2 % Neut # (Auto) 12.75 H (1.4-6.5) K/uL Lymph # (Auto) 1.76 (1.2-3.4) K/uL [place] # (Auto) 1.46 H (0.11-0.59) K/uL Eos # (Auto) 0.29 (0-0.5) K/uL Baso # (Auto) 0.03 (0-0.2) K/uL Immature Gran # (Auto) 0.07 H (0.00-0.02) K/uL Sodium (136-145) mmol/L Potassium (3.5-5.1) mmol/L Chloride (98-107) mmol/L Carbon Dioxide (21-32) mmol/L Anion Gap (3-11) BUN (7-18) mg/dl Creatinine (0.6-1.4) mg/dl Est Cr Clr Drug Dosing ml/min Est GFR ( Amer) ml/min Est GFR (Non-Af Amer) ml/min BUN/Creatinine Ratio (10-20) Glucose (70-99) mg/dl Calcium (8.5-10.1) mg/dl Total Bilirubin (0.2-1) mg/dl AST (15-37) U/L ALT (12-78) U/L Alkaline Phosphatase (45-117) U/L Total Protein (6.4-8.2) gm/dl Albumin (3.4-5.0) gm/dl Globulin (2.5-4.0) gm/dl Albumin/Globulin Ratio (0.9-2) Lipase (73-393) U/L TSH (0.300-4.500) uIu/ml Urine Color Urine Appearance (Clear) Urine pH (4.5-7.5) Ur Specific [place] (1.000-1.030) Urine Protein (Negative) Urine Glucose (UA) (Negative) Urine Ketones (Negative) Urine Blood (Negative) Urine Nitrite (Negative) Urine Bilirubin (Negative) Urine Urobilinogen (Negative) Ur Leukocyte Esterase (Negative) Urine WBC (Auto) (0-5) /hpf Urine RBC (Auto) (0-4) /hpf U Hyaline Cast (Auto) (0-5) /lpf U Epithel Cells (Auto) (0-5) /lpf Urine Bacteria (Auto) (Negative) COVID-19 Eval Order SARS-CoV-2 (PCR) (Negative) Microbiology 02/14/21 14:09 Gram Stain - Final Abdomen Aerobic and Anaerobic Culture - Preliminary Gram negative bacilli
[2021-02-15] MEDS: ENOXAPARIN 100 MG/1ML SYR SQ SCH (13:13)
[2021-02-16] MEDS: PIPERACILLIN/TAZOBACTAM 4.5 GM in DEXTROSE 5% 100 ML IV SCH ×3 (00:08→15:15)
[2021-02-16] MEDS: SODIUM CHLORIDE 0.9% 1000ML 1,000 ML IV SCH ×4 (02:29→17:49)
[2021-02-16 08:03] LABS: Basophils # (auto) 0.04 K/uL (0-0.2); Basophils % (auto) 0.2 %; Eosinophils # (auto) 0.29 K/uL (0-0.5); Eosinophils % (auto) 1.7 %; Hematocrit (blood only) 35.4 % (42-52); Hemoglobin 11.9 g/dL (14.0-18.0); Immature Granulocytes % (auto) 1.2 %; Lymphocytes # (auto) 2.91 K/uL (1.2-3.4); Lymphocytes % (auto) 17.4 %; Mean Corpuscular Hgb Conc 33.6 g/dL (32-36); Mean Corpuscular Volume 86.1 fL (80-100); Mean Platelet Volume 9.2 fL (7.4-10.4); Monocytes # (auto) 1.37 K/uL (0.11-0.59); Monocytes % (auto) 8.2 %; Neutrophils # (auto) 11.89 K/uL (1.4-6.5); Neutrophils % (auto) 71.3 %; Platelet Count 289 K/uL (130-400); RDW Coefficient of Variation 14.9 % (11.5-14.5); RDW Standard Deviation 47.4 fL (36.4-46.3); Red Blood Count 4.11 M/uL (4.7-6.1)
[2021-02-16 08:47] LABS: BUN Creatinine Ratio 15.8 (10-20); Calcium 8.3 mg/dl (8.5-10.1); Creatinine Clr Calc Pharmacy 169.3 ml/min; Est GFR (African American) 105.1 ml/min; Est GFR (Non-African American) 90.7 ml/min; Potassium 3.9 mmol/L (3.5-5.1)
[2021-02-16] MEDS: ENOXAPARIN 100 MG/1ML SYR SQ SCH (09:10)
[2021-02-16] MEDS ORDERED: KETOROLAC 30 MG/ML VIAL IV PRN (10:31)
--- NOTE | 2021-02-16 11:13 | Surgery Progress Note ---
Date of Service February 16, 2021 Assessment & Plan (1) Pneumoperitoneum: (2) Perforated abdominal viscus: Plan: POD # 2 s/p exploratory laparotomy, sigmoid resection with end colostomy and Melo's pouch -afebrile, vitals stable - leukocytosis improving ,16K today - postop pain controlled with [employer] when lying, pain severe when moving or sitting up - no colostomy output - adequate urine output - blood cultures negative to date - abdominal culture showing gram + cocci, gram + and - bacilli. E.coli pansensitive. Plan: Continue Morhpine [employer] prn pain, will add scheduled IV tylenol and IV toradol prn Clear liquids advised to go slow Continue IV fluids Continue IV Zosyn Continue lindy drain to bulb suction SCDs and continue Lovenox or DVT prophylaxis OOB to chair and ambulate PT/OT and case management consults will also consult wound care for ostomy care and help with ostomy teaching repeat am labs Dr. Jackson has seen and examined pt, agrees with above. Admission and Anticipated Discharge Date Admission Date: February 14, 2021 Subjective feeling okay when lying down, pain is severe when sitting up or any movement no nausea or vomiting no chest pain or shortness of breath some dizziness when standing up but resolves right away urinating without difficulty tolerating water, nervous to try anything more Physical Exam Constitutional: WD/WN, vitals as above + morbidly obese Respiratory: normal respiratory effort; no respiratory distress, no labored breathing and no retractions Gastrointestinal (Abdomen): Inspection/Auscultation: abdomen normal to i nspection, + abdominal surgical incision (clean/dry/intact with evelyne) and + abdominal surgical drain present (serosanguineous ); abdomen not distended Percussion/Palpation: + abdomen tender (mild at incision site) and abdomen soft; no guarding and abdomen not rigid LLQ ostomy with some retraction of ostomy and beefy red, no necrosis. No stool output in colostomy bag. Skin: no rashes, warm and dry Psychiatric: A+Ox3, euthymic affect Results & Data ([facility]) Vital Signs (Past 12 Hours) Vital Signs Temp Pulse Pulse Resp BP Pulse Ox 02/16/21 07:38 37.0 C 106 H 20 135/80 91 02/16/21 07:11 96 H 02/16/21 04:00 36.9 C 110 H 18 138/71 92 02/15/21 23:33 37.0 C 98 H 18 167/91 H 90 Laboratory Results 02/16/21 02/16/21 Range/Units 07:35 07:35 WBC 16.70 H (4.8-10.8) K/uL RBC 4.11 L (4.7-6.1) M/uL Hgb 11.9 L (14.0-18.0) g/dL Hct 35.4 L (42-52) % MCV 86.1 (80-100) fL MCH 29.0 (25-34) pg MCHC 33.6 (32-36) g/dL RDW Std Deviation 47.4 H (36.4-46.3) fL RDW Coeff of Ena 14.9 H (11.5-14.5) % Plt Count 289 (130-400) K/uL MPV 9.2 (7.4-10.4) fL Immature Gran % (Auto) 1.2 % Neut % (Auto) 71.3 % Lymph % (Auto) 17.4 % [place] % (Auto) 8.2 % Eos % (Auto) 1.7 % Baso % (Auto) 0.2 % Neut # (Auto) 11.89 H (1.4-6.5) K/uL Lymph # (Auto) 2.91 (1.2-3.4) K/uL [place] # (Auto) 1.37 H (0.11-0.59) K/uL Eos # (Auto) 0.29 (0-0.5) K/uL Baso # (Auto) 0.04 (0-0.2) K/uL Immature Gran # (Auto) 0.20 H (0.00-0.02) K/uL Sodium 140 (136-145) mmol/L Potassium 3.9 D (3.5-5.1) mmol/L Chloride 108 H (98-107) mmol/L Carbon Dioxide 24 (21-32) mmol/L Anion Gap 8.0 (3-11) BUN 16 (7-18) mg/dl Creatinine 1.01 (0.6-1.4) mg/dl Est Cr Clr Drug Dosing 169.3 ml/min Est GFR ( Amer) 105.1 ml/min Est GFR (Non-Af Amer) 90.7 ml/min BUN/Creatinine Ratio 15.8 (10-20) Glucose 93 (70-99) mg/dl Calcium 8.3 L (8.5-10.1) mg/dl
[2021-02-16] MEDS: ACETAMINOPHEN 1000 MG/100 ML IV IV SCH ×2 (11:16→22:17)
[2021-02-16] MEDS: MoRPHine SULFATE PCA 30 MG/30 ML IV PRN (17:43)
[2021-02-17] MEDS: PIPERACILLIN/TAZOBACTAM 4.5 GM in DEXTROSE 5% 100 ML IV SCH ×3 (00:12→16:26)
[2021-02-17] MEDS: SODIUM CHLORIDE 0.9% 1000ML 1,000 ML IV SCH ×3 (01:29→23:15)
[2021-02-17] MEDS: ACETAMINOPHEN 1,000 MG/100 ML VIAL IV SCH ×3 (06:11→22:30)
[2021-02-17 07:16] LABS: Basophils # (auto) 0.05 K/uL (0-0.2); Basophils % (auto) 0.3 %; Eosinophils # (auto) 0.38 K/uL (0-0.5); Eosinophils % (auto) 2.3 %; Hematocrit (blood only) 36.2 % (42-52); Hemoglobin 12.3 g/dL (14.0-18.0); Immature Granulocytes # (auto) 0.45 K/uL (0.00-0.02); Immature Granulocytes % (auto) 2.7 %; Lymphocytes # (auto) 2.58 K/uL (1.2-3.4); Lymphocytes % (auto) 15.7 %; Mean Corpuscular Hemoglobin 28.7 pg (25-34); Mean Corpuscular Volume 84.6 fL (80-100); Mean Platelet Volume 9.3 fL (7.4-10.4); Monocytes # (auto) 1.15 K/uL (0.11-0.59); Neutrophils # (auto) 11.79 K/uL (1.4-6.5); Platelet Count 276 K/uL (130-400); RDW Coefficient of Variation 14.5 % (11.5-14.5); RDW Standard Deviation 44.7 fL (36.4-46.3); Red Blood Count 4.28 M/uL (4.7-6.1)
[2021-02-17 07:47] LABS: BUN Creatinine Ratio 14.1 (10-20); Calcium 8.4 mg/dl (8.5-10.1); Creatinine Clr Calc Pharmacy 172.3 ml/min; Est GFR (African American) 107.7 ml/min; Est GFR (Non-African American) 92.9 ml/min; Potassium 3.7 mmol/L (3.5-5.1)
[2021-02-17] MEDS: ENOXAPARIN 100 MG/1ML SYR SQ SCH (08:03)
--- NOTE | 2021-02-17 09:26 | Surgery Progress Note ---
Date of Service February 17, 2021 Assessment & Plan (1) Pneumoperitoneum: (2) Perforated abdominal viscus: Plan: POD # 3 s/p exploratory laparotomy, sigmoid resection with end colostomy and Melo's pouch -afebrile, hypertensive systolic up to 182 (asymptomatic, likely secondary to postop pain and anxiety) - leukocytosis stable at 16K today - postop pain controlled with [employer] when lying/not moving, pain severe when moving or sitting up - no colostomy output - adequate urine output - blood cultures negative to date - abdominal culture showing gram + cocci, gram + and - bacilli. E.coli pansensitive. Plan: Continue Morphine [employer] prn pain will adjust dosing to 4 mg every 15 minutes, continue scheduled IV tylenol and change Toradol to scheduled every 6 hours for another 5 doses Clear liquids abdominal binder Continue IV fluids, decrease to 75 mls/hr Continue IV Zosyn Continue lindy drain to bulb suction SCDs and continue Lovenox or DVT prophylaxis OOB to chair and ambulate PT/OT and case management consults will also consult wound care for ostomy care and help with ostomy teaching repeat am labs Dr. Jackson has seen and examined pt, agrees with above. Admission and Anticipated Discharge Date Admission Date: February 14, 2021 Subjective feeling okay, pain is still severe with movement , "trying to push through it, becoming anxious" pain is minimal when lying in bed urinating without difficulty tolerated some jello and slov[place] ice last evening, not hungry this morning some gas coming out of ostomy, no stool yet denies chest pain, palpitations, shortness of breath, headache, nausea or vomiting Physical Exam Constitutional: WD/WN, vitals as above + morbidly obese; no acute distress and not ill appearing Respiratory: normal respiratory effort; no respiratory distress, no labored breathing and no retractions Gastrointestinal (Abdomen): Inspection/Auscultation: abdomen normal to inspection, + abdominal surgical incision (clean,dry,intact with evelyne) and + abdominal surgical drain present (serosanguineous); abdomen not distended and + abnormal bowel sounds Percussion/Palpation: abdomen soft; abdomen nontender, no guarding and abdomen not rigid LLQ ostomy with retraction of ostomy but no necrosis, beefy red, no stool output Skin: no rashes, warm and dry Psychiatric: A+Ox3, euthymic affect Results & Data ([facility]) Vital Signs (Past 12 Hours) Vital Signs Temp Pulse Pulse Resp BP BP Pulse Ox 02/17/21 07:44 36.5 C 87 20 172/111 H 94 02/17/21 03:50 36.7 C 84 18 164/93 H 91 02/16/21 23:34 37.1 C 94 H 18 162/102 H 182/96 H 94 02/16/21 22:18 90 Laboratory Results 02/17/21 02/17/21 Range/Units 06:46 06:46 WBC 16.40 H (4.8-10.8) K/uL RBC 4.28 L (4.7-6.1) M/uL Hgb 12.3 L (14.0-18.0) g/dL Hct 36.2 L (42-52) % MCV 84.6 (80-100) fL MCH 28.7 (25-34) pg MCHC 34.0 (32-36) g/dL RDW Std Deviation 44.7 (36.4-46.3) fL RDW Coeff of Ena 14.5 (11.5-14.5) % Plt Count 276 (130-400) K/uL MPV 9.3 (7.4-10.4) fL Immature Gran % (Auto) 2.7 % Neut % (Auto) 72.0 % Lymph % (Auto) 15.7 % [place] % (Auto) 7.0 % Eos % (Auto) 2.3 % Baso % (Auto) 0.3 % Neut # (Auto) 11.79 H (1.4-6.5) K/uL Lymph # (Auto) 2.58 (1.2-3.4) K/uL [place] # (Auto) 1.15 H (0.11-0.59) K/uL Eos # (Auto) 0.38 (0-0.5) K/uL Baso # (Auto) 0.05 (0-0.2) K/uL Immature Gran # (Auto) 0.45 H (0.00-0.02) K/uL Sodium 141 (136-145) mmol/L Potassium 3.7 (3.5-5.1) mmol/L Chloride 108 H (98-107) mmol/L Carbon Dioxide 24 (21-32) mmol/L Anion Gap 9.0 (3-11) BUN 14 (7-18) mg/dl Creatinine 0.99 (0.6-1.4) mg/dl Est Cr Clr Drug Dosing 172.3 ml/min Est GFR ( Amer) 107.7 ml/min Est GFR (Non-Af Amer) 92.9 ml/min BUN/Creatinine Ratio 14.1 (10-20) Glucose 103 H (70-99) mg/dl Calcium 8.4 L (8.5-10.1) mg/dl Microbiology 02/14/21 14:09 Gram Stain - Final Abdomen Aerobic and Anaerobic Culture - Preliminary Escherichia coli Streptococcus species 02/14/21 09:30 Aerobic Blood Culture - Preliminary Blood No growth in Aerobic bottle after 48 hours. Anaerobic Blood Culture - Preliminary No growth in Anaerobic bottle after 48 hours. 02/14/21 09:30 Aerobic Blood Culture - Preliminary Blood No growth in Aerobic bottle after 48 hours. Anaerobic Blood Culture - Preliminary No growth in Anaerobic bottle after 48 hours.
[2021-02-17] MEDS: KETOROLAC 30 MG/ML VIAL IV SCH ×3 (10:19→22:30)
[2021-02-18] MEDS: MoRPHine SULFATE PCA 30 MG/30 ML IV PRN (00:47)
[2021-02-18] MEDS: PIPERACILLIN/TAZOBACTAM 4.5 GM in DEXTROSE 5% 100 ML IV SCH ×2 (00:55→09:33)
--- NOTE | 2021-02-18 02:27 | Hospitalist Consultation ---
Date of Consultation February 18, 2021 Assessment & Plan (1) Perforated abdominal viscus: Final Assessment and Recommendations as follows : Hypertensive urgency hx of hypertension not currently on maintenance medications Multifactorial : Postop pain, history perforated viscus status post surgery RTC Toradol Rule out sleep disordered breathing as contributory factor Hyperglycemia rule out DM Analgesia Stop Toradol Initiate lisinopril Stop maintenance IV fluid once patient diet advanced from clear liquids. Outpatient sleep study Check hemoglobin A1c DVT prophylaxis. Lovenox as per postop General Surgery orders. Thank you very much for this consultation. Dr. Cruz will follow patient's progress. Will relay to AM provider. Text document was generated using [employer] voice recognition software. It may contain grammatical or spelling errors. Kindly contact undersigned for clarification of any documentation item in question. History of Present Illness Reason for Consultation: HTN Requesting Physician: Dr. Jackson Attending Physician: Richard Jackson MD History of Present Illness PCP : none History obtained from patient and records. Medical history significant for hypertension (currently not on medications), fatty liver. Patient admitted under General Surgery service since February 14, 2021 for perforated viscus status post surgery. SBP the last 48 hours 1 40-2 20s. 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 Patient denies headache, chest pain, S OB, fluid retention. Patient recalls being on unrecalled blood pressure medicine years ago when he was residing in [place], [place]. Blood pressure medicine stopped with adequate blood pressure control as per patient. Patient does not check blood pressure at home for a few years now. Snoring symptoms without prior sleep studies. Medical History as above Surgical History : Appendectomy, bowel surgery Family History : HTN Personal/Social history : Non-smoker, occasional EtOH intake, [employer] employee Allergies Allergy/AdvReac Type Severity Reaction Status Date / Time No Known Allergies Allergy Unverified 02/14/21 09:18 Home Medications Medication Instructions Recorded Confirmed Type multivitamin 1 tab PO DAILY 02/14/21 02/14/21 History Patient History Medical History Bowel obstruction Ruptured appendicitis Surgical History S/P appendectomy Social History Smoking Status: Current some day smoker Hx Alcohol Use: No Hx Substance Use: No Preferred Language: Bulgarian Communication Ability: Effective 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 Beliefs That Will Affect Care: None marital status: Current Living Situation: Spouse Other Information That Helps Us Care for You: No Feels Safe at Home: Yes Safety Concerns: Feels Safe At This Time Assistive Devices: Walker Review of Systems Review of Systems: As per HPI, all 10 systems reviewed, all other ROS negative Physical Exam Physical Exam: GENERAL: Comfortable, pleasant, morbidly obese, no respiratory distress SKIN: Pallor,, warm HEENT: Alopecia, pale palpebral conjunctivae, no ptosis, dry buccal mucosa NECK : Supple, short neck, no tenderness CHEST : Decreased breath sounds, no tenderness HEART : RRR, no obvious murmurs ABDOMEN: Some distention, minimal tenderness on my palpation EXTREMITIES : Minimal LE swelling, no LE tenderness, no other conspicuous deformities noted NEUROLOGIC : Coherent, no facial asymmetry, no other gross focality Results & Data Results & Data ([facility]) Vital Signs (Past 12 Hours) Vital Signs Temp Pulse Pulse Resp BP BP Pulse Ox 02/18/21 01:08 88 222/114 H 02/17/21 23:05 36.7 C 91 H 18 186/115 H 96 02/17/21 19:10 36.8 C 90 20 176/111 H 94 02/17/21 16:04 83 Laboratory Results Laboratory Results WBC 16.40 K/uL (4.8-10.8) H 02/17/21 06:46 RBC 4.28 M/uL (4.7-6.1) L 02/17/21 06:46 Hgb 12.3 g/dL (14.0-18.0) L 02/17/21 06:46 Hct 36.2 % (42-52) L 02/17/21 06:46 MCV 84.6 fL (80-100) 02/17/21 06:46 MCH 28.7 pg (25-34) 02/17/21 06:46 MCHC 34.0 g/dL (32-36) 02/17/21 06:46 RDW Std Deviation 44.7 fL (36.4-46.3) 02/17/21 06:46 RDW Coeff of Ena 14.5 % (11.5-14.5) 02/17/21 06:46 Plt Count 276 K/uL (130-400) 02/17/21 06:46 MPV 9.3 fL (7.4-10.4) 02/17/21 06:46 Immature Gran % (Auto) 2.7 % 02/17/21 06:46 Neut % (Auto) 72.0 % 02/17/21 06:46 Lymph % (Auto) 15.7 % 02/17/21 06:46 [place] % (Auto) 7.0 % 02/17/21 06:46 Eos % (Auto) 2.3 % 02/17/21 06:46 Baso % (Auto) 0.3 % 02/17/21 06:46 Neut # (Auto) 11.79 K/uL (1.4-6.5) H 02/17/21 06:46 Lymph # (Auto) 2.58 K/uL (1.2-3.4) 02/17/21 06:46 [place] # (Auto) 1.15 K/uL (0.11-0.59) H 02/17/21 06:46 Eos # (Auto) 0.38 K/uL (0-0.5) 02/17/21 06:46 Baso # (Auto) 0.05 K/uL (0-0.2) 02/17/21 06:46 Immature Gran # (Auto) 0.45 K/uL (0.00-0.02) H 02/17/21 06:46 Sodium 141 mmol/L (136-145) 02/17/21 06:46 Potassium 3.7 mmol/L (3.5-5.1) 02/17/21 06:46 Chloride 108 mmol/L (98-107) H 02/17/21 06:46 Carbon Dioxide 24 mmol/L (21-32) 02/17/21 06:46 Anion Gap 9.0 (3-11) 02/17/21 06:46 BUN 14 mg/dl (7-18) 02/17/21 06:46 Creatinine 0.99 mg/dl (0.6-1.4) 02/17/21 06:46 Est Cr Clr Drug Dosing 172.3 ml/min 02/17/21 06:46 Est GFR ( Amer) 107.7 ml/min 02/17/21 06:46 Est GFR (Non-Af Amer) 92.9 ml/min 02/17/21 06:46 BUN/Creatinine Ratio 14.1 (10-20) 02/17/21 06:46 Glucose 103 mg/dl (70-99) H 02/17/21 06:46 Calcium 8.4 mg/dl (8.5-10.1) L 11 06:46 Total Bilirubin 0.6 mg/dl (0.2-1) 02/14/21 09:30 AST 23 U/L (15-37) 02/14/21 09:30 ALT 43 U/L (12-78) 02/14/21 09:30 Alkaline Phosphatase 90 U/L (45-117) 02/14/21 09:30 Total Protein 7.6 gm/dl (6.4-8.2) 02/14/21 09:30 Albumin 2.8 gm/dl (3.4-5.0) L 02/14/21 09:30 Globulin 4.8 gm/dl (2.5-4.0) H 02/14/21 09:30 Albumin/Globulin Ratio 0.6 (0.9-2) L 02/14/21 09:30 Lipase 131 U/L (73-393) 02/14/21 09:30 TSH 1.780 uIu/ml (0.300-4.500) 02/14/21 09:30 Urine Color Dark Yellow 02/14/21 09:30 Urine Appearance Clear (Clear) 02/14/21 09:30 Urine pH 5.5 (4.5-7.5) 02/14/21 09:30 Ur Specific [place] 1.026 (1.000-1.030) 02/14/21 09:30 Urine Protein Trace (Negative) H 02/14/21 09:30 Urine Glucose (UA) Negative (Negative) 02/14/21 09:30 Urine Ketones 1+ (Negative) H 02/14/21 09:30 Urine Blood 1+ (Negative) H 02/14/21 09:30 Urine Nitrite Negative (Negative) 02/14/21 09:30 Urine Bilirubin 1+ (Negative) H 02/14/21 09:30 Urine Urobilinogen Positive (Negative) H 02/14/21 09:30 Ur Leukocyte Esterase Negative (Negative) 02/14/21 09:30 Urine WBC (Auto) 1-5 /hpf (0-5) 02/14/21 09:30 Urine RBC (Auto) 0-4 /hpf (0-4) 02/14/21 09:30 U Hyaline Cast (Auto) 5-10 /lpf (0-5) H 02/14/21 09:30 U Epithel Cells (Auto) 10-20 /lpf (0-5) H 02/14/21 09:30 Urine Bacteria (Auto) Negative (Negative) 02/14/21 09:30 COVID-19 Eval Order Covid19 at [facility] 02/14/21 11:14 SARS-CoV-2 (PCR) NEGATIVE (Negative) 02/14/21 11:14 Impressions Abdomen/Pelvis CT 02/14/21 09:15 CT SCAN OF THE ABDOMEN AND PELVIS WITH IV CONTRAST CLINICAL HISTORY: Lower abdominal pain. COMPARISON STUDY: No priors. TECHNIQUE: Following the IV administration of 96 cc of Optiray 320, CT scan of the abdomen and pelvis is performed from the lung bases to the proximal femora. Images are reviewed in the axial, sagittal, and coronal planes. IV contrast was administered without complication. A dose lowering technique was utilized adhering to the principles of ALARA. The examination is degraded by large body habitus, and streak artifact from the body wall abutting the CT gantry. CT DOSE: 2286.97 mGy.cm FINDINGS: Lung bases: The heart is normal in size and without pericardial effusion. Pneumomediastinum is noted in the lower chest. Extrapleural gas is seen at the posterior left lung base. The lung bases are clear. There is a tiny hiatal hernia. Liver: The contrast-enhanced liver is enlarged, measuring 23 cm in length. The liver demonstrates diffusely diminished attenuation consistent with hepatic steatosis. There is no intrahepatic biliary ductal dilatation. The hepatic veins and portal veins are patent. Gallbladder: Unremarkable. Spleen: The spleen is enlarged measuring 16.3 cm in length. Pancreas: Unremarkable. Adrenal glands: Unremarkable. Kidneys: The contrast enhanced kidneys are normal in size and without hydronephrosis. The kidneys enhance symmetrically. Abdominal vasculature: The abdominal aorta is normal in course and caliber noting mild to moderate and age advanced atherosclerotic calcification. Bowel: There is no bowel obstruction. There is mild colonic diverticulosis without definitive CT evidence of acute diverticulitis. There are mildly inflamed looking loops of proximal jejunum in the midabdomen. The appendix is not identified. Peritoneum/retroperitoneum: There is a a large volume of predominantly retroperitoneal free air which extends from the lower chest into the left groin. Gas is seen in the left renal hilum. There is inflammatory process identified in the posterior left midabdomen with trace fluid, locules of gas, and inflammatory stranding. No organized/drainable fluid collection is identified. There is a midline surgical scar, with a second surgical scar seen in the right ventral pelvis. There is a complex multiloculated fat-containing umbilical/periumbilical hernia. There are also supraumbilical hernias. Lymphadenopathy: None. Pelvic viscera: The bladder, prostate, and seminal vesicles are normal as visualized. Skeletal structures: There is mild lumbosacral spondylosis. No lytic or blastic lesions are seen. IMPRESSION: 1. There is a large volume of predominantly retroperitoneal free air which extends from the lower chest to the left groin. 2. There is associated inflammatory change within the posterior left midabdomen with trace fluid and multiloculated gas. This is located adjacent to loops of mildly inflamed appearing proximal small bowel, and a perforated viscus is the diagnosis of exclusion. A small bowel diverticulitis could potentially have this appearance. Although the site of perforation is not clearly delineated, given the retroperitoneal location the duodenum/proximal small bowel or colon are considered most likely. Surgical consultation is advised. 3. No organized/drainable fluid collection is identified at this time to indicate abscess. 4. There is no bowel obstruction. 5. Hepatomegaly and hepatic steatosis. 6. Splenomegaly. 7. Age advanced atherosclerotic calcification of the abdominal aorta. 8. Additional findings as above. ACT 112: Negative or not required by law. Electronically signed by: Jamie Gonzalez M.D. 02/14/2021 10:58 AM Diagnostic Findings Chest x-ray as per my interpretation cardiomegaly, minimal congestion EKG as per my interpretation : Rate 80, NSR, normal axis, T wave flattening inferior leads
[2021-02-18 02:59] LABS: Basophils # (auto) 0.03 K/uL (0-0.2); Basophils % (auto) 0.2 %; Eosinophils # (auto) 0.36 K/uL (0-0.5); Eosinophils % (auto) 2.5 %; Hematocrit (blood only) 35.3 % (42-52); Hemoglobin 11.8 g/dL (14.0-18.0); Immature Granulocytes # (auto) 0.54 K/uL (0.00-0.02); Immature Granulocytes % (auto) 3.8 %; Lymphocytes # (auto) 2.59 K/uL (1.2-3.4); Lymphocytes % (auto) 18.2 %; Mean Corpuscular Hemoglobin 28.4 pg (25-34); Mean Corpuscular Hgb Conc 33.4 g/dL (32-36); Mean Corpuscular Volume 84.9 fL (80-100); Mean Platelet Volume 9.2 fL (7.4-10.4); Monocytes # (auto) 1.02 K/uL (0.11-0.59); Monocytes % (auto) 7.2 %; Neutrophils # (auto) 9.72 K/uL (1.4-6.5); Neutrophils % (auto) 68.1 %; Platelet Count 282 K/uL (130-400); RDW Coefficient of Variation 14.4 % (11.5-14.5); RDW Standard Deviation 44.6 fL (36.4-46.3); Red Blood Count 4.16 M/uL (4.7-6.1); White Blood Count 14.26 K/uL (4.8-10.8)
[2021-02-18 03:23] LABS: BUN Creatinine Ratio 13.9 (10-20); Calcium 8.5 mg/dl (8.5-10.1); Creatinine Clr Calc Pharmacy 165.6 ml/min; Est GFR (African American) 102.6 ml/min; Est GFR (Non-African American) 88.6 ml/min; Magnesium 2.2 mg/dl (1.8-2.4); Potassium 3.5 mmol/L (3.5-5.1)
[2021-02-18] MEDS ORDERED: lisinopril 5 MG TAB PO ONE (03:25)
[2021-02-18] MEDS: ACETAMINOPHEN 1,000 MG/100 ML VIAL IV SCH ×3 (05:31→21:21)
--- NOTE | 2021-02-18 07:19 | Surgery Progress Note ---
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 E.coli pansensitive. Plan: Continue pain control as ordered advance diet to regular abdominal binder Continue IV fluids, decrease to 75 mls/hr Continue IV Zosyn Continue lindy drain to bulb suction SCDs and continue Lovenox or DVT prophylaxis OOB to chair and ambulate PT/OT and case management consults will also consult wound care for ostomy care and help with ostomy teaching repeat am labs Admission and Anticipated Discharge Date Admission Date: February 14, 2021 Subjective Had overnight blood pressure spike, as needed metoprolol IV, medicine on board pain is somewhat improved today urinating without difficulty tolerating clears, no nausea/vomiting Significant gas in ostomy bag denies chest pain, palpitations, shortness of breath, headache Physical Exam Constitutional: WD/WN, vitals as above + morbidly obese Eyes: PERRL, conjunctivae normal, anicteric sclerae Gastrointestinal (Abdomen): Inspection/Auscultation: abdomen normal to inspection, + abdomen distended (Mild), + abdominal surgical incision (Clean, dry, intact, no drainage, evelyne in place) and + abdominal surgical drain present (Minimal serosanguineous output) Percussion/Palpation: + abdomen tender (Along incision) and abdomen soft; no guarding and abdomen not rigid Musculoskeletal: Extremities: no cyanosis and no clubbing Skin: no rashes, warm and dry Results & Data ([facility]) Vital Signs (Past 12 Hours) Vital Signs Temp Pulse Pulse Resp BP BP Pulse Ox 02/18/21 04:59 86 02/18/21 03:26 36.6 C 90 18 161/105 H 96 02/18/21 01:30 90 178/105 H 02/18/21 01:08 88 222/114 H 02/17/21 23:05 36.7 C 91 H 18 186/115 H 96
[2021-02-18 07:21] LABS: Estimated Average Glucose 114 mg/dl; Hemoglobin A1C 5.6 % (4.5-5.6)
--- NOTE | 2021-02-18 07:54 | XRay Report ---
XR chest 1V portable HISTORY: Hypertension. COMPARISON: None. FINDINGS: No pneumothorax. No pleural effusions. There are low lung volumes with mild elevation of th e right hemidiaphragm. The cardiac silhouette is mildly enlarged. This mild central pulmonary vascula r congestion without overt edema. There is a hazy right middle lobe airspace opacity. IMPRESSION: 1. A hazy right middle lobe airspace opacity. This may represent a pneumonia and could be due to aspi ration. 2. Cardiomegaly and mild congestive change. ACT 112: Negative or not required by law. Electronically signed by: Vargas Gonzáles M.D. 02/18/2021 7:53 AM
--- NOTE | 2021-02-18 08:51 | Electrocardiogram Report ---
Test Reason : Blood Pressure : / mmHG Vent. Rate : 078 BPM Atrial Rate : 078 BPM P-R Int : 162 ms QRS Dur : 098 ms QT Int : 394 ms P-R-T Axes : 009 003 028 degrees QTc Int : 449 ms Normal sinus rhythm Normal ECG No previous ECGs available Confirmed by Jian Castro ([id number]) on 02/18/2021 8:51:29 AM Referred By: REFERRED SELF Confirmed By:Jian Castro
[2021-02-18] MEDS: ENOXAPARIN 100 MG/1ML SYR SQ SCH (09:37)
[2021-02-18] MEDS ORDERED: oxyCODONE/ACETAMINOPHEN 5mg/325mg TAB PO PRN (11:30)
[2021-02-18] MEDS ORDERED: LABETALOL HCL IV 5 MG/ML 20ML IV STA ×2 (11:37→16:15)
[2021-02-18] MEDS: SODIUM CHLORIDE 0.9% 1000ML 1,000 ML IV SCH (15:24)
[2021-02-18] MEDS: AMPICILLIN/SULBACTAM SOD 3,000 MG in 0.9 % SODIUM CHLORIDE 100 ML IV SCH ×2 (17:16→21:36)
--- NOTE | 2021-02-18 20:57 | Communication Note ---
Date of Service: February 18, 2021 45-year-old man who is not on antihypertensive therapy at home presented on 02/14 with evidence of viscus rupture s/p exploratory laparotomy, sigmoid colon resection and ostomy formation by Dr. Jackson. Patient remains on Zosyn and was started on diet today with stool formation noted in ostomy bag. Multiple doses of labetalol given with some improvement in blood pressure. Ultimately started lisinopril 20 mg nightly. As needed hydralazine also started. 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 Interrogation was reviewed and appropriately match the patient's report of pain meds that were needed overnight. Patient is morbidly obese with ostomy in place and well- healed abdominal incision. No significant distention of abdomen which is soft and nontender. Cardiac exam reveals S1/S2 heard without murmurs gallops or rubs and lungs are clear to auscultation bilaterally. Patient is mentating clearly. Continue to monitor closely. Flavia Cruz DO [place] [facility]
[2021-02-18] MEDS: lisinopril 20 MG TAB PO SCH (21:33)
[2021-02-18] MEDS: hydrALAZINE HCL 20 MG/ML VIAL IV PRN (23:19)
[2021-02-19] MEDS: oxyCODONE/ACETAMINOPHEN 5mg/325mg TAB PO PRN ×2 (00:35→23:19)
[2021-02-19] MEDS: AMPICILLIN/SULBACTAM SOD 3,000 MG in 0.9 % SODIUM CHLORIDE 100 ML IV SCH ×4 (03:27→22:34)
--- NOTE | 2021-02-19 05:22 | Surgery Progress Note ---
Date of Service February 19, 2021 Assessment & Plan (1) Perforated abdominal viscus: Plan: Status post exploratory laparotomy with Marcel procedure on 02/14/2021 (postop day #5) Continue analgesics Continue antiemetics as needed Continue diet as tolerated Continue to encourage use of incentive spirometry Increase activity as able Operative cultures have grown pansensitive E. coli. Continue Zosyn while patient is in the hospital with likely transition to oral antibiotics at time of discharge. Continue ostomy teaching with nursing staff PT and OT notes reviewed and patient is suitable for discharge home with home health and family help Case management note reviewed and home health has been arranged to begin on 02/21/[address] for DVT prevention Admission and Anticipated Discharge Date Admission Date: February 14, 2021 Supervising Physician Co-Signing Physician Notes Dr. Jipatient is resting comfortably in bed and has no significant complaints Seems to be tolerating diet, currently on IV antibiotics We will continue with supportive care Subjective Patient is resting comfortably in bed. He does note some pain at his surgical incision. He denies any nausea or vomiting. He notes that his ostomy is functioning. He denies any difficulty urinating. He does admit that he has not been ambulating much since his surgery. He denies any shortness of breath. Discussed with RN: Patient has just had a diet advanced to solid yesterday. He also feels patient would benefit from some further ostomy teaching. Physical Exam Gastrointestinal (Abdomen): Abdomen is rotund but soft. Patient surgical incision is clean, dry, intact. Ostomy is pink and viable with brown stool in collection bag. ROSALVA drain is in place and has drained 10 cc of serosanguineous fluid over the last 24 hours. Results & Data ([facility]) Vital Signs (Past 12 Hours) Vital Signs Temp Pulse Pulse Resp BP BP Pulse Ox 02/19/21 03:00 36.6 C 76 20 164/96 H 94 02/19/21 00:38 144/83 H 02/18/21 23:07 171/107 H 02/18/21 22:53 36.7 C 88 20 95 02/18/21 22:20 70 02/18/21 19:08 36.6 C 83 18 175/99 H 94 02/18/21 17:20 163/94 H PG Care Time/CCT Total # of Minutes Spent Total Time Spent with Patient: Total time spent is greater than 50% in coordination of care (as documented) at patient's floor/unit and/or counseling patient: Coding Level of Care Code None Diagnoses Perforated abdominal viscus R19.8
[2021-02-19] MEDS: ACETAMINOPHEN 1,000 MG/100 ML VIAL IV SCH (05:54)
[2021-02-19 06:10] LABS: Hematocrit (blood only) 34.8 % (42-52); Hemoglobin 11.8 g/dL (14.0-18.0); Mean Corpuscular Hemoglobin 28.6 pg (25-34); Mean Corpuscular Hgb Conc 33.9 g/dL (32-36); Mean Corpuscular Volume 84.3 fL (80-100); Mean Platelet Volume 9.1 fL (7.4-10.4); Platelet Count 310 K/uL (130-400); RDW Coefficient of Variation 14.5 % (11.5-14.5); RDW Standard Deviation 44.9 fL (36.4-46.3); Red Blood Count 4.13 M/uL (4.7-6.1); White Blood Count 13.34 K/uL (4.8-10.8)
[2021-02-19 06:55] LABS: BUN Creatinine Ratio 9.4 (10-20); Calcium 8.7 mg/dl (8.5-10.1); Est GFR (African American) 113.2 ml/min; Est GFR (Non-African American) 97.6 ml/min; Potassium 3.7 mmol/L (3.5-5.1)
[2021-02-19] MEDS: ENOXAPARIN 100 MG/1ML SYR SQ SCH (08:22)
[2021-02-19] MEDS: hydrALAZINE HCL 20 MG/ML VIAL IV PRN (08:22)
[2021-02-19] MEDS ORDERED: lisinopril 5 MG TAB PO SCH (09:00)
[2021-02-19] MEDS: MoRPHine SULFATE PCA 30 MG/30 ML IV PRN (11:10)
[2021-02-19] MEDS: amLODIPine BESYLATE 5 MG TAB PO SCH (11:38)
[2021-02-19] MEDS ORDERED: ALUMINUM/MAGNESIUM/SIMETH (MAALOX MAX) 30 ML UDC PO PRN (14:26)
[2021-02-19] MEDS: FAMOTIDINE 10 MG TABLET PO SCH ×2 (15:55→20:12)
[2021-02-19] MEDS: SODIUM CHLORIDE 0.9% 1000ML 1,000 ML IV SCH (19:49)
[2021-02-19] MEDS: lisinopril 20 MG TAB PO SCH (20:11)
--- NOTE | 2021-02-19 20:29 | Hospitalist Progress Note ---
Date of Service February 19, 2021 Assessment & Plan (1) Perforated abdominal viscus: Plan: S/P Exploratory laparotomy with Marcel procedure on 02/14/2021 Tolerating diet Pain control Appreciate surgery input Mild persistent leukocytosis Wound culture growing E. coli, group C beta strep, nitrites, and repeat gram- negative bacilli Continue on Unasyn Continue wound care Surgery on board Hypertensive urgency H/O Hypertension--not currently on maintenance medications Continue lisinopril, add amlodipine Hydralazine as needed Dyspepsia Started on Pepcid DVT Px: Lovenox SQ CODE STATUS Full code Admission and Anticipated Discharge Date Admission Date: February 14, 2021 Subjective Patient is seen and examined at bedside Denies any significant abdominal pain today Denies nausea, vomiting, chest pain, dyspnea States having heartburn earlier today Tolerating diet Offers no other complaints Review of Systems Review of Systems: All systems reviewed & are unremarkable except as noted in Subjective Physical Exam Physical Exam: Physical Exam: Vitals signs as noted above General Appearance:Morbidly Obese, no apparent distress Head: normocephalic, Atraumatic Eyes: normal inspection, EOMI Neck: supple, Trachea midline Respiratory/Chest: Normal breath sounds, CTA Cardiovascular: S1, S2, No murmur Abdomen/GI:Soft, Non tender, +Surgical evelyne, Bowel sounds present Extremities/Musculoskeletal:normal inspection, no edema Neurologic/Psych:AAOX3, grossly no focal neurological deficits Skin: normal color, warm Results & Data Results & Data ([facility]) Vital Signs (Past 12 Hours) Vital Signs Temp Pulse Pulse Resp BP BP Pulse Ox 02/19/21 19:22 36.7 C 76 18 154/68 H 95 02/19/21 16:43 36.8 C 91 H 18 156/78 H 201/108 H 91 02/19/21 15:04 86 02/19/21 12:00 36.6 C 83 20 170/91 H 198/102 H 97 Laboratory Results Short CBC 02/19/21 Range/Units 05:40 WBC 13.34 H (4.8-10.8) K/uL Hgb 11.8 L (14.0-18.0) g/dL Hct 34.8 L (42-52) % Plt Count 310 (130-400) K/uL BMP 02/19/21 05:40 Sodium 138 Potassium 3.7 Chloride 107 Carbon Dioxide 25 BUN 9 D Creatinine 0.95 Glucose 107 H Calcium 8.7
[2021-02-20] MEDS: AMPICILLIN/SULBACTAM SOD 3,000 MG in 0.9 % SODIUM CHLORIDE 100 ML IV SCH ×4 (03:57→21:31)
[2021-02-20] MEDS: hydrALAZINE HCL 20 MG/ML VIAL IV PRN ×2 (05:09→15:07)
--- NOTE | 2021-02-20 05:17 | Surgery Progress Note ---
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 coli. noted on operative cultures--- continue Unasyn while patient is in the hospital with likely transition to oral antibiotics at time of discharge. Continue Norvasc and lisinopril for elevated blood pressure as ordered by medical team PT and OT notes reviewed and patient is suitable for discharge home with home health and family help Case management note reviewed and home health has been arranged to begin on 02/21/[address] in [address] for DVT prevention Dr. Ji-patient did receive 2 units of blood-she has had much less drainage from her wound-dressing did not require any changing of Last shift. She does appear anxious and would likely benefit from additional medication in the form of Dilaudid No other changes from a surgical standpoint Admission and Anticipated Discharge Date Admission Date: February 14, 2021 Subjective Patient is resting comfortably in bed. He reports a good night. He is tolerating solid food. He notes his ostomy is functioning. He denies any difficulty urinating. He denies any shortness of breath. He notes his pain control has improved. Physical Exam Gastrointestinal (Abdomen): Abdomen is rotund but does not appear distended. His incision is clean, dry, intact. ROSALVA drain is in place with minimal serosanguineous drainage. Colostomy appears pink and viable with brown stool in the collection bag. Results & Data ([facility]) Vital Signs (Past 12 Hours) Vital Signs Temp Pulse Pulse Resp BP Pulse Ox 02/20/21 02:56 36.7 C 89 16 179/101 H 95 02/20/21 02:24 97 H 02/19/21 23:06 36.8 C 97 H 18 174/101 H 96 02/19/21 19:22 36.7 C 76 18 154/68 H 95 PG Care Time/CCT Total # of Minutes Spent Total Time Spent with Patient: Total time spent is greater than 50% in coordination of care (as documented) at patient's floor/unit and/or counseling patient: Coding Level of Care Code None Diagnoses Perforated abdominal viscus R19.8
--- NOTE | 2021-02-20 06:37 | Surgery Progress Note ---
Date of Service February 20, 2021 Assessment & Plan (1) Perforated abdominal viscus: Plan: Patient's vital signs are stable He is awake and alert He continues to be on IV antibiotics and has a IV RETAIL PHARMACIST pump We will DC the RETAIL PHARMACIST Patient has visiting nurse set up for tomorrow Plan would be to discharge home tomorrow most likely if primary service agrees Admission and Anticipated Discharge Date Admission Date: February 14, 2021 Results & Data ([facility]) Vital Signs (Past 12 Hours) Vital Signs Temp Pulse Pulse Resp BP Pulse Ox 02/20/21 02:56 36.7 C 89 16 179/101 H 95 02/20/21 02:24 97 H 02/19/21 23:06 36.8 C 97 H 18 174/101 H 96 02/19/21 19:22 36.7 C 76 18 154/68 H 95 PG Care Time/CCT Total # of Minutes Spent Total Time Spent with Patient: Total time spent is greater than 50% in coordination of care (as documented) at patient's floor/unit and/or counseling patient: Coding Level of Care Code None Diagnoses Perforated abdominal viscus R19.8
[2021-02-20] MEDS: SODIUM CHLORIDE 0.9% 1000ML 1,000 ML IV SCH ×4 (07:05→18:50)
[2021-02-20] MEDS: amLODIPine BESYLATE 5 MG TAB PO SCH (07:18)
[2021-02-20] MEDS: FAMOTIDINE 10 MG TABLET PO SCH ×2 (07:18→21:25)
[2021-02-20] MEDS: ENOXAPARIN 100 MG/1ML SYR SQ SCH (07:19)
[2021-02-20 08:08] LABS: Hematocrit (blood only) 38.5 % (42-52); Hemoglobin 13.2 g/dL (14.0-18.0); Mean Corpuscular Hemoglobin 28.7 pg (25-34); Mean Corpuscular Hgb Conc 34.3 g/dL (32-36); Mean Corpuscular Volume 83.7 fL (80-100); Mean Platelet Volume 9.3 fL (7.4-10.4); Nucleated RBC # (auto) 0.03 K/uL (0-0); Nucleated RBC % (auto) 0.2 %; Platelet Count 351 K/uL (130-400); RDW Coefficient of Variation 14.5 % (11.5-14.5); RDW Standard Deviation 43.8 fL (36.4-46.3); White Blood Count 15.22 K/uL (4.8-10.8)
[2021-02-20 08:37] LABS: Est GFR (African American) 119.2 ml/min; Est GFR (Non-African American) 102.9 ml/min; Magnesium 2.2 mg/dl (1.8-2.4); Potassium 3.6 mmol/L (3.5-5.1)
--- NOTE | 2021-02-20 18:37 | Hospitalist Progress Note ---
Date of Service February 20, 2021 Assessment & Plan (1) Perforated abdominal viscus: (2) Post-operative state: Plan: S/P Exploratory laparotomy with Marcel procedure on 02/14/2021 Tolerating solid food and good ostomy output Pain controlled with oxycodone. Wound culture growing E. coli, group C beta strep, nitrites, and repeat gram- negative bacilli Continue on Unasyn Continue wound care (3) Hypertensive urgency: Plan: Question if elevated post op pressures are from Unasyn vs catecholamine stress response post operatively has H/O Hypertension--not currently on maintenance medications prior to admission Continue amlodipine, add HCTZ to lisinopril. Hydralazine as needed (4) Dyspepsia: Plan: Dyspepsia Started on Pepcid (5) Morbid obesity: (6) DVT prophylaxis: Plan: Lovenox 100mg SQ daily Full Code Dispo-to home when medically stable and cleared by surgery. PLEASE ENSURE PATIENT HAS A SCRIPT FOR NEW BP MEDS GOING HOME AND A PCP FOLLOW- UP TO CHECK RENAL FUNCTION AND LYTES IN 1-2 WEEKS. THANKS [facility] Ad[facility] and Anticipated Discharge Date Admission Date: February 14, 2021 Subjective 45-year-old man status post bowel surgery who has persistently elevated blood pressure Pain is 4 out of 10 consistently which increases with standing to a 7 out of 10 He is doing well on oxycodone He is making stool in his ostomy and tolerating solid food No history of elevated blood pressure in the past. Review of Systems Review of Systems: All systems reviewed and negative except as indicated above Physical Exam Physical Exam: CONSTITUTIONAL: obese, vitals as above, generally well- appearing EYES: normal conjunctivae, no scleral icterus ENT: external ear and nose normal, MMM NECK: trachea midline RESPIRATORY: clear to auscultation bilaterally, no crackles, rales or wheezes, normal respiratory effort CARDIOVASCULAR: regular rate and rhythm, S1 and 2 heard without murmurs, gallops or rubs, no JVD, no peripheral edema GASTROINTESTINAL: soft, nontender, ND, +colostomy with normal appearing stool in bag. midline incision covered with dressing c/d/i MUSCULOSKELETAL: strength 5/5 throughout, head is normocephalic and atraumatic SKIN: warm and dry NEUROLOGIC: CN 2-12 grossly intact, normal cognition, normal speech, no tremor PSYCHIATRIC: alert cooperative and oriented to person, place and time. Results & Data Results & Data ([facility]) Vital Signs (Past 12 Hours) Vital Signs Temp Pulse Pulse Resp BP Pulse Ox 02/20/21 16:41 87 02/20/21 15:34 36.8 C 92 H 20 184/97 H 95 02/20/21 12:00 36.7 C 84 20 158/81 H 97 02/20/21 08:02 36.8 C 86 20 155/84 H 97 02/20/21 07:13 80 Laboratory Results Short CBC 02/20/21 Range/Units 07:33 WBC 15.22 H (4.8-10.8) K/uL Hgb 13.2 L (14.0-18.0) g/dL Hct 38.5 L (42-52) % Plt Count 351 (130-400) K/uL BMP 02/20/21 07:33 Sodium 138 Potassium 3.6 Chloride 107 Carbon Dioxide 24 BUN 9 Creatinine 0.91 Glucose 94 Calcium 9.0 Medications Administered Current Inpatient Medications Al Hydrox/Mg Hydrox/Simethicone (Aluminum/Magnesium/Simeth (Maalox Max) 30 Ml Udc) 15 ml PO Q6H PRN PRN Reason: Dyspepsia Stop: 03/21/21 14:25 Amlodipine Besylate (Amlodipine Besylate 5 Mg Tab) 5 mg PO QAM [facility] Stop: 03/21/21 10:29 Last Admin: 02/20/21 07:18 Dose: 5 mg Documented by: Enoxaparin Sodium (Enoxaparin 100 Mg/1ml Syr) 100 mg SQ DAILY [facility] Stop: 03/17/21 12:29 Last Admin: 02/20/21 07:19 Dose: 100 mg Documented by: Famotidine (Famotidine 10 Mg Tablet) 10 mg PO BID [facility] Stop: 03/21/21 14:29 Last Admin: 02/20/21 07:18 Dose: 10 mg Documented by: Lisinopril/HCTZ (Lisinopril/Hctz 20/12.5mg 1 Tab Tab) 1 tab PO QAM [facility] Stop: 03/22/21 18:39 Hydralazine HCl (Hydralazine Hcl 20 Mg/Ml Vial) 10 mg IV Q6H PRN PRN Reason: SBP>170 Stop: 03/20/21 20:14 Last Admin: 02/20/21 15:07 Dose: 10 mg Documented by: Ampicillin Sodium/Sulbactam Sodium 3,000 mg/ Sodium Chloride 108 mls @ 216 mls/hr IV Q6H [facility]; Protocol Stop: 02/24/21 15:59 Last Infusion: 02/20/21 17:49 Dose: Infused Documented by: Naloxone HCl (Naloxone Hcl 0.4 Mg/1 Ml Vial/Carp) 0.1 mg IV Q5M PRN; Protocol PRN Reason: Oversedation/Resp Depression Stop: 02/28/21 18:06 Ondansetron HCl (Ondansetron Inj 2 Mg/Ml 2 Ml Vial) 4 mg IV Q6H PRN PRN Reason: Nausea And Vomiting Stop: 03/16/21 18:06 Oxycodone/Acetaminophen (Oxycodone/Acetaminophen 5mg/325mg Tab) 1 tab PO Q4H P RN PRN Reason: Moderate Pain Stop: 03/04/21 11:29 Last Admin: 02/19/21 23:19 Dose: 1 tab Documented by: Oxycodone/Acetaminophen (Oxycodone/Acetaminophen 5mg/325mg Tab) 2 tab PO Q4H PRN PRN Reason: Severe Pain Stop: 03/04/21 11:29
[2021-02-20] MEDS: LISINOPRIL/HCTZ 20/12.5MG 1 TAB TAB PO SCH (21:14)
[2021-02-20] MEDS: oxyCODONE/ACETAMINOPHEN 5mg/325mg TAB PO PRN (21:30)
[2021-02-21] MEDS: hydrALAZINE HCL 20 MG/ML VIAL IV PRN (00:46)
[2021-02-21] MEDS: AMPICILLIN/SULBACTAM SOD 3,000 MG in 0.9 % SODIUM CHLORIDE 100 ML IV SCH ×2 (04:00→09:56)
[2021-02-21] MEDS: oxyCODONE/ACETAMINOPHEN 5mg/325mg TAB PO PRN (04:36)
[2021-02-21 06:58] LABS: Hematocrit (blood only) 40.2 % (42-52); Hemoglobin 13.8 g/dL (14.0-18.0); Mean Corpuscular Hemoglobin 28.6 pg (25-34); Mean Corpuscular Hgb Conc 34.3 g/dL (32-36); Mean Corpuscular Volume 83.2 fL (80-100); Mean Platelet Volume 9.2 fL (7.4-10.4); Platelet Count 391 K/uL (130-400); RDW Coefficient of Variation 14.7 % (11.5-14.5); RDW Standard Deviation 44.4 fL (36.4-46.3); Red Blood Count 4.83 M/uL (4.7-6.1); White Blood Count 16.46 K/uL (4.8-10.8)
[2021-02-21 07:32] LABS: BUN Creatinine Ratio 12.3 (10-20); Calcium 9.2 mg/dl (8.5-10.1); Creatinine Clr Calc Pharmacy 165.3 ml/min; Est GFR (African American) 106.4 ml/min; Est GFR (Non-African American) 91.8 ml/min; Magnesium 2.3 mg/dl (1.8-2.4); Potassium 3.4 mmol/L (3.5-5.1)
[2021-02-21] MEDS: FAMOTIDINE 10 MG TABLET PO SCH (07:33)
[2021-02-21] MEDS: ENOXAPARIN 100 MG/1ML SYR SQ SCH (07:34)
[2021-02-21] MEDS: amLODIPine BESYLATE 5 MG TAB PO SCH (07:34)
[2021-02-21] MEDS ORDERED: POTASSIUM CHLORIDE CRTAB 20 MEQ TABCR PO STA (09:24)
--- NOTE | 2021-02-21 09:57 | Discharge Summary ---
Date of Service February 21, 2021 Admission HPI Per Admitting Provider See admitting history and physical Principal Diagnosis Perforated diverticulitis Discharge Exam Constitutional WD/WN, vitals as above Eyes PERRL, conjunctivae normal, anicteric sclerae Neck trachea midline, no thyromegaly Respiratory normal respiratory effort; no respiratory distress and no labored breathing Cardiovascular Rate/Rhythm: regular rate and regular rhythm Gastrointestinal (Abdomen) Inspection/Auscultation: + abdominal surgical incision (Clean, dry, intact, evelyne in place); abdomen not distended Percussion/Palpation: abdomen soft; abdomen nontender, no guarding and abdomen not rigid Skin no rashes, warm and dry Psychiatric A+Ox3, euthymic affect Discharge Data Allergies Allergy/AdvReac Type Severity Reaction Status Date / Time No Known Allergies Allergy Unverified 02/14/21 09:18 Consultations 02/14/21 11:01 ED Decision to Admit Stat 02/14/21 11:54 ED Decision to Admit Stat 02/18/21 01:30 Consult Hospitalist Stat Procedures Performed Operation Date: 02/14/21 11:00 Actual Procedures p Exploratory Laparotomy, Sigmoid Colon Resection, Ostomy(Not Applicable) - Richard Jackson MD Ordered Studies 02/14/21 09:15 CT abd pelvis IV con only Stat Hospital Course (1) Morbid obesity: (2) Perforated abdominal viscus: (3) Pneumoperitoneum: The patient was admitted through the emergency department with free intraperitoneal and retroperitoneal air. He was taken to the operating room immediately, the details of which are dictated in a separate operating note. He underwent a Melo's procedure for perforated diverticulitis. Postoperatively he was transferred in stable condition to the PACU and subsequently to the floor. He was maintained on DVT prophylaxis with SCDs, Lovenox subcutaneous, and early and aggressive ambulation. He is maintained with incentive spirometry and early ambulation to avoid pneumonia. He was kept on IV antibiotics for the perforation. His diet was slowly advanced as tolerated. His ostomy began working first with air and subsequently with stool in the bag. During the course of his hospitalization, he was noted to have significantly elevated blood pressure. The medicine physicians were consulted and he was placed on blood pressure medication with satisfactory result. By the day of discharge, he was tolerating regular diet, the ostomy was working well, he was not requiring any IV pain medication. He was discharged home in stable condition. He has outpatient home health set up for ostomy management. Total Time Total Time Spent Total Time Spent (In Minutes): 30 minutes Discharge Plan Discharge Items Patient Disposition: Home - Home Health Services Reason For Visit: PERFORATED SIGMOID DIVERTICULITIS, PNEUMOPRTIYONEU Discharge Diagnosis: Perforated sigmoid diverticulitis with abscess Condition on Discharge: Good Activity: Per Instructions section Lifting: No more than 10 pounds and Wait until after follow-up appointment Bathing: May shower/bathe in 3 days Sexual Activity: Wait until after follow-up appointment Exercise/Sports: Wait until after follow-up appointment Non-emergency contact: Surgeon Call non-emergency contact if: your pain is not controlled, your pain is worsening, your pain is concerning for you, you have a fever, your temperature is above 101, your wound has increased redness, your wound has increased drainage and your wound pain has increased Follow-up/Referrals: PCP,NO [Primary Care Provider] - Diet: Regular Addtl Attending Provider Instructions: Post-Surgical ~Discharge Instructions Activity Recommendations: - lifting limitation: (10 pounds for at least 6 weeks), - exercise/sex/sports limit: (nonstrenuous for 6 weeks), - driving or machine use limit: (none for 1 week, until pain free, or no longer taking narcotic pain medication - Shower/bathe limit: (may shower, no submerging underwater) Diet: - Resume previous diet SPECIAL CARE INSTRUCTIONS: - May shower. Let water run over area and pat dry. - Surgical evelyne will be removed in office - Call the surgeon's office with any questions or concerns - - (ex. temperature higher than 101 degrees F, excessive bleeding or pain). MEDICATIONS: - Resume previous medications unless instructed otherwise by your surgeon. - May take extra strength Tylenol and Ibuprofen as needed for mild pain -650 mg Tylenol every 6 hours as needed - Ibuprofen 600 mg every 6 hours as needed (take with food) - Percocet 1 every 4 hours, as needed for moderate to severe pain FOLLOW UP VISIT: - If not already scheduled, please call the office to schedule a one week follow-up appointment. Office number Pending Studies at Discharge: No Stand-Alone Forms: [place], Smoking Cessation Medications and DC Order Prescriptions: New oxycodone-acetaminophen [Percocet] 5-325 mg tablet 1 tab PO Q6H PRN (Reason: pain) Qty: 20 RF: 0 Continued multivitamin Tablet 1 tab PO DAILY RF: 0 Discharge Orders: Discharge Order (Routine); Ordered 02/21/21 Ordered By: Richard Jackson Admission Data Admit Date/Time: 02/14/21 16:04 Attending Provider: Richard Jackson Admit Provider: Richard Jackson Primary Care Provider: PCP,NO Other Providers: Myles Dobbs ; Richard Jackson ; [place] ; Miya Birch
[2021-02-21] MEDS: LISINOPRIL/HCTZ 20/12.5MG 1 TAB TAB PO SCH (10:30)
--- NOTE | 2021-02-21 11:24 | Hospitalist Progress Note ---
Date of Service February 21, 2021 Assessment & Plan (1) Perforated abdominal viscus: (2) Post-operative state: Plan: S/P Exploratory laparotomy with Marcel procedure on 02/14/2021 Tolerating solid food and good ostomy output Pain controlled with oxycodone. Wound culture growing E. coli, group C beta strep, nitrites, and repeat gram- negative bacilli Continue on Unasyn Continue wound care as per surgery Clinically much better and the primary service is going to send him home We will change antibiotic to oral Augmentin (3) Hypertensive urgency: Plan: Question if elevated post op pressures are from Unasyn vs catecholamine stress response post operatively has H/O Hypertension--not currently on maintenance medications prior to admission Continue amlodipine, add HCTZ to lisinopril. Hydralazine as needed His blood pressure is well controlled though is still on the higher side at 156/89 He will be discharged home on current medications He was offered to have an appointment with outpatient PCP but he mentioned that his will do that for him and I am not to worry about that. (4) Dyspepsia: Plan: Dyspepsia Started on Pepcid (5) Morbid obesity: (6) DVT prophylaxis: Plan: Lovenox 100mg SQ daily Full Code Dispo-to home when medically stable and cleared by surgery. PLEASE ENSURE PATIENT HAS A SCRIPT FOR NEW BP MEDS GOING HOME AND A PCP FOLLOW- UP TO CHECK RENAL FUNCTION AND LYTES IN 1-2 WEEKS. THANKS Admission and Anticipated Discharge Date Admission Date: February 14, 2021 Subjective 02/21/2021 The patient was seen and examined in medical telemetry unit He has been feeling much better and wants to go home Denies any significant abdominal pain, nausea and/or vomiting Denies any problem with urine and or bowel habit Review of Systems Review of Systems: All systems reviewed and are unremarkable except as noted below Gastrointestinal: No abdominal distention. Pain is minimal and no nausea or vomiting Physical Exam Physical Exam: Lying on a chair without any acute distress Constitutional: well developed, well nourished and + morbidly obese; not ill appearing Eyes: PERRL, conjunctivae normal, anicteric sclerae ENMT: external ear and nose normal, oropharynx normal Neck: trachea midline, no thyromegaly Respiratory: no respiratory distress and no cough Auscultation: lungs clear to auscultation bilaterally and + diminished lung sounds Cardiovascular: Rate/Rhythm: regular rate and regular rhythm; not tachycardic Heart Sounds: normal S1 and normal S2; no murmur Extremities: no edema Gastrointestinal (Abdomen): Inspection/Auscultation: normal bowel sounds; abdomen not distended Colostomy site is intact Neurologic: Alert, awake and oriented x3. No focal sensory and motor deficit appreciated Psychiatric: A+Ox3, euthymic affect Lymphatic: no cervical or axillary lymphadenopathy Results & Data Results & Data ([facility]) Vital Signs (Past 12 Hours) Vital Signs Temp Pulse Pulse Resp BP Pulse Ox 02/21/21 09:21 36.7 C 81 18 156/89 H 94 02/21/21 07:27 69 02/21/21 04:05 36.9 C 96 H 18 157/82 H 94 02/21/21 00:06 36.7 C 86 18 172/100 H 90 Laboratory Results Short CBC 02/21/21 Range/Units 06:27 WBC 16.46 H (4.8-10.8) K/uL Hgb 13.8 L (14.0-18.0) g/dL Hct 40.2 L (42-52) % Plt Count 391 (130-400) K/uL BMP 02/21/21 06:27 Sodium 136 Potassium 3.4 L Chloride 102 Carbon Dioxide 27 BUN 12 Creatinine 1.00 Glucose 108 H Calcium 9.2 Medications Administered Current Inpatient Medications Al Hydrox/Mg Hydrox/Simethicone (Aluminum/Magnesium/Simeth (Maalox Max) 30 Ml Udc) 15 ml PO Q6H PRN PRN Reason: Dyspepsia Stop: 03/21/21 14:25 Amlodipine Besylate (Amlodipine Besylate 5 Mg Tab) 5 mg PO QAM [facility] Stop: 03/21/21 10:29 Last Admin: 02/21/21 07:34 Dose: 5 mg Documented by: Enoxaparin Sodium (Enoxaparin 100 Mg/1ml Syr) 100 mg SQ DAILY [facility] Stop: 03/17/21 12:29 Last Admin: 02/21/21 07:34 Dose: 100 mg Documented by: Famotidine (Famotidine 10 Mg Tablet) 10 mg PO BID [facility] Stop: 03/21/21 14:29 Last Admin: 02/21/21 07:33 Dose: 10 mg Documented by: Lisinopril/HCTZ (Lisinopril/Hctz 20/12.5mg 1 Tab Tab) 1 tab PO QAM [facility] Stop: 03/22/21 18:39 Last Admin: 02/21/21 10:30 Dose: 1 tab Documented by: Hydralazine HCl (Hydralazine Hcl 20 Mg/Ml Vial) 10 mg IV Q6H PRN PRN Reason: SBP>170 Stop: 03/20/21 20:14 Last Admin: 02/21/21 00:46 Dose: 10 mg Documented by: Ampicillin Sodium/Sulbactam Sodium 3,000 mg/ Sodium Chloride 108 mls @ 216 mls/hr IV Q6H [facility]; Protocol Stop: 02/24/21 15:59 Last Infusion: 02/21/21 10:30 Dose: Infused Documented by: Naloxone HCl (Naloxone Hcl 0.4 Mg/1 Ml Vial/Carp) 0.1 mg IV Q5M PRN; Protocol PRN Reason: Oversedation/Resp Depression Stop: 02/28/21 18:06 Ondansetron HCl (Ondansetron Inj 2 Mg/Ml 2 Ml Vial) 4 mg IV Q6H PRN PRN Reason: Nausea And Vomiting Stop: 03/16/21 18:06 Oxycodone/Acetaminophen (Oxycodone/Acetaminophen 5mg/325mg Tab) 1 tab PO Q4H PRN PRN Reason: Moderate Pain Stop: 03/04/21 11:29 Last Admin: 02/21/21 04:36 Dose: 1 tab Documented by: Oxycodone/Acetaminophen (Oxycodone/Acetaminophen 5mg/325mg Tab) 2 tab PO Q4H PRN PRN Reason: Severe Pain Stop: 03/04/21 11:29
== END 2021-02-21 15:32 | disposition home health service (06) | DRG 329 ==
LOC: ED 08:30 → ASU 11:59 → 2N 11:59 → EDINP 16:04 → 2N 18:05

== ENCOUNTER 2021-07-18 05:22 | Inpatient (IN) ==
--- NOTE | 2021-07-08 11:38 | PAT Medication Instructions ---
Medication Instructions Date of Service July 08, 2021 Home Medications Medication Instructions Recorded Lactobacillus acidoph-L.bulgaricus 1 tab PO BID #30 tab 02/21/21 1 million cell chewable tablet (Lactinex) multivitamin 1 tab PO QAM Lactobacillus acidoph-L.bulgaricus 1 million cell chewable tablet (Lactinex) 1 tab PO BID amlodipine 5 mg tablet 5 mg PO QAM lisinopril 20 mg-hydrochlorothiazide 12.5 mg tablet 1 tab PO QAM DO NOT take the morning of surgery multivitamin 1 tab PO QAM Lactobacillus acidoph-L.bulgaricus 1 million cell chewable tablet (Lactinex) 1 tab PO BID lisinopril 20 mg-hydrochlorothiazide 12.5 mg tablet 1 tab PO QAM Take morning of surgery With a small sip of water, OTHERWISE NOTHING TO EAT OR DRINK AFTER MIDNIGHT: amlodipine 5 mg tablet 5 mg PO QAM Other Notes If you have any questions please call us at [phone] or [phone] or [phone] or [phone]
--- NOTE | 2021-07-11 09:21 | Anesthesiology Consultation ---
Date of Service July 11, 2021 Assessment & Plan (1) Encounter for pre-operative examination: - discharge summary 02/21/2021 [facility], [place]: "...free intraperitoneal and retroperitoneal air. He was taken to the operating room immediately, the details of which are dictated in a separate operating note. He underwent a Melo's procedure for perforated diverticulitis. Postoperatively he was transferred in stable condition to the PACU and subsequently to the floor...ostomy began working first with air and subsequently with stool in the bag. During the course of his hospitalization, he was noted to have significantly elevated blood pressure. The medicine physicians were consulted and he was placed on blood pressure medication with satisfactory result. By the day of discharge, he was tolerating regular diet, the ostomy was working well, he was not requiring any IV pain medication. He was discharged home in stable condition. He has outpatient home health set up for ostomy management..." - COVID screening: Per assessment on 07/11/2021: Travel screen negative, no known COVID-19 positive contacts or current COVID-19 related symptoms in past 2 weeks. Patient vaccinated. Surgeon arranging preop COVID testing, scheduled 07/14/2021. Awaiting results. Chart Review Chart Review: Acceptable Risk for Surgery and Patient seen in Pre Admission Testing Teaching & Discussion Pre-Anesthesia Teaching/Discussion Notes: Instructed NPO after midnight before surgery, except medications with 15 cc of water. Medication instructions provided according to the PAT guidelines. History Surgery Operation Date: 07/18/21 09:05 Proposed Procedures p Exploratory Laparotomy with Reversal of Colostomy/Marcel's - Richard Jackson MD Height/Weight Height: 6 ft Weight: 203.6 kg Allergies Allergy/AdvReac Type Severity Reaction Status Date / Time No Known Allergies Allergy Verified 07/07/21 14:16 Medications Home Medications Medication Instructions Recorded Confirmed Last Taken multivitamin 1 tab PO QAM 02/14/21 07/07/21 Unknown Lactobacillus acidoph-L.bulgaricus 1 tab PO BID #30 tab 02/21/21 07/07/21 Unknown 1 million cell chewable tablet (Lactinex) amlodipine 5 mg tablet 5 mg PO QAM 07/07/21 07/07/21 Unknown lisinopril 20 1 tab PO QAM 07/07/21 07/07/21 Unknown mg-hydrochlorothiazide 12.5 mg tablet Past Medical History Medical History (Updated 07/11/21 @ 09:44 by Marlen Lyles PA-C) Anxiety Bowel obstruction HX 01/2021 Hypertension controlled, stable per pt Morbid obesity with BMI of 50.0-59.9, adult Perforated abdominal viscus HX 01/2015 Pneumoperitoneum HX 01/2021 Ruptured appendicitis HX 1999 Patient denies h/o stroke, seizures, heart attack, heart failure, DM, blood clots or blood transfusions. Exercise / Class Metabolic Activity II 4-5 Yardwork/Stairs/Walk up hill (denies CP or SOB with 1 FOS) Past Family History Family History Grandfather (Paternal) Family hx of colon cancer Past Surgical History Surgical History (Updated 07/11/21 @ 09:20 by Marlen Lyles PA-C) History of arthroscopy RIGHT KNEE History of bowel resection WITH COLOSTOMY 02/14/2021: Grade 2 view, MAC#4, ETT#8.0 atraumatic x 1 + TAP. No post-op issues per anesthesia progress note. History of laparotomy S/P appendectomy 1999 Past Anesthesia History No Hx of Anesthesia Complications and No Family Hx of Anesthesia Complications History of PONV No Hx of PONV and No Hx of Motion Sickness Social History Smoking Status: Light tobacco smoker Smoking cigarettes per day: 1-2 CIGS A WEEK Do You Dip or Chew Tobacco: No Hx Alcohol Use: Yes Alcohol type: beer Alcohol Intake Frequency Comment: RARELY Hx Substance Use: No Review of Systems Snoring, denies witnessed apneas or sleep studies. Patient denies chest pain, shortness of breath, dyspnea on exertion, reflux, fever, chills, cough, wheezing, or palpitations. Physical Exam Vital Signs Vitals BP 128/64 P 85 TEMP 97.9 SP02 98% on RA RESP 17 Physical Short, thick neck Full cervical extension range of motion without pain Full TMJ range of motion TMD 3.5 finger breaths Mallampati Score 3 Dentition: intact, several missing teeth lower back bilat; denies chipped or loose teeth, caps/crowns, implants or bridges Lungs: normal respiratory effort. Clear throughout to auscultation, no adventitious breath sounds Cardiac: regular rate and rhythm, no murmurs noted Carotid arteries: negative bruit bilat Lab Results Anesthesia Preop Results Results Anesthesia Widget: WBC 12.09 K/uL (4.8-10.8) H 07/11/21 Hgb 15.2 g/dL (14.0-18.0) 07/11/21 Hct 43.7 % (42-52) 07/11/21 Plt 222 K/uL (130-400) 07/11/21 Na 135 mmol/L (136-145) L 07/11/21 K 4.3 mmol/L (3.5-5.1) 07/11/21 Cl 104 mmol/L (98-107) 07/11/21 CO2 25 mmol/L (21-32) 07/11/21 BUN 18 mg/dl (6-23) 07/11/21 Creat 1.09 mg/dl (0.6-1.4) 07/11/21 Glucose Level 108 mg/dl (70-99(Fasting)) H 07/11/21 Testing Electrocardiogram Date: 02/18/21 NSR, rate 78 bpm Other Testing Abdomen/pelvis CT 02/14/2021 Lung bases: The heart is normal in size and without pericardial effusion. Pneumomediastinum is noted in the lower chest. Extrapleural gas is seen at the posterior left lung base. The lung bases are clear. There is a tiny hiatal hernia. Liver: The contrast-enhanced liver is enlarged, measuring 23 cm in length. The liver demonstrates diffusely diminished attenuation consistent with hepatic steatosis. There is no intrahepatic biliary ductal dilatation. The hepatic veins and portal veins are patent. Spleen: The spleen is enlarged measuring 16.3 cm in length. Abdominal vasculature: The abdominal aorta is normal in course and caliber noting mild to moderate and age advanced atherosclerotic calcification. Bowel: There is no bowel obstruction. There is mild colonic diverticulosis without definitive CT evidence of acute diverticulitis. There are mildly inflamed looking loops of proximal jejunum in the midabdomen. The appendix is not identified. Peritoneum/retroperitoneum: There is a a large volume of predominantly retroperitoneal free air which extends from the lower chest into the left groin. Gas is seen in the left renal hilum. There is inflammatory process identified in the posterior left midabdomen with trace fluid, locules of gas, and inflammatory stranding. No organized/drainable fluid collection is identified. There is a midline surgical scar, with a second surgical scar seen in the right ventral pelvis. There is a complex multiloculated fat-containing umbilical/periumbilical hernia. There are also supraumbilical hernias. Skeletal structures: There is mild lumbosacral spondylosis. No lytic or blastic lesions are seen. IMPRESSION: 1. There is a large volume of predominantly retroperitoneal free air which extends from the lower chest to the left groin. 2. There is associated inflammatory change within the posterior left midabdomen with trace fluid and multiloculated gas. This is located adjacent to loops of mildly inflamed appearing proximal small bowel, and a perforated viscus is the diagnosis of exclusion. A small bowel diverticulitis could potentially have this appearance. Although the site of perforation is not clearly delineated, given the retroperitoneal location the duodenum/proximal small bowel or colon are considered most likely. Surgical consultation is advised. 3. No organized/drainable fluid collection is identified at this time to indicate abscess. 4. There is no bowel obstruction. 5. Hepatomegaly and hepatic steatosis. 6. Splenomegaly. 7. Age advanced atherosclerotic calcification of the abdominal aorta. 8. Additional findings as above.
[2021-07-18] MEDS ORDERED: LR 15ML/HR IV SCH (06:00)
[2021-07-18] MEDS ORDERED: ceFAZolin 2000MG 2,000 MG/15 ML SYR IV SCH (06:00)
[2021-07-18] MEDS ORDERED: PROPOFOL IV EMULSION 10 MG/ML 20 ML VIAL IV ONE (06:36)
[2021-07-18] MEDS ORDERED: ROCURONIUM BROMIDE 10 MG/ML 5 ML VIAL IV ONE ×2 (06:36→08:20)
[2021-07-18] MEDS ORDERED: SUCCINYLCHOLINE 100MG/5ML SYR IV ONE (06:36)
[2021-07-18] MEDS ORDERED: fentaNYL citrate 100 MCG/2 ML VIAL ONE ×3 (06:37→09:30)
[2021-07-18] MEDS ORDERED: MIDAZOLAM HCL 1 MG/ML 2ML VIAL ONE (06:37)
[2021-07-18] MEDS ORDERED: HYDROmorphone INJ 2 MG/ML SYR/VIAL IV PRN (06:51)
[2021-07-18] MEDS ORDERED: ONDANSETRON INJ 2 MG/ML 2 ML VIAL IV PRN ×2 (06:51→11:48)
[2021-07-18] MEDS ORDERED: ePHEDrine sulfate 50 MG/ML AMP IV PRN (06:51)
[2021-07-18] MEDS ORDERED: ATROPINE SULFATE 0.1 MG/ML 10ML SYR IV PRN (06:51)
--- NOTE | 2021-07-18 07:13 | History & Physical Bridge Note ---
Date of Service July 18, 2021 History & Physical Bridge Note I have examined the patient, reviewed the History & Physical and in the interval since the performance of the History & Physical I have noted the following changes of clinical significance: no changes noted
[2021-07-18] MEDS ORDERED: DEXAMETHASONE SOD INJ 4 MG/ML VIAL ONE (08:27)
[2021-07-18] MEDS ORDERED: GLYCOPYRROLATE 0.2 MG/ML VIAL ONE (08:27)
[2021-07-18] MEDS ORDERED: NEOSTIGMINE METHYLSULFATE 1 MG/ML 10ML VIAL ONE (08:27)
[2021-07-18] MEDS ORDERED: KETAMINE 50 MG/5 ML SYRINGE ONE (08:28)
[2021-07-18] MEDS ORDERED: ePHEDrine sulfate 50 MG/ML SYR ONE (08:29)
[2021-07-18] MEDS ORDERED: ONDANSETRON INJ 2 MG/ML 2 ML VIAL ONE (08:31)
[2021-07-18] MEDS ORDERED: HYDROmorphone INJ 2 MG/ML SYR/VIAL ONE (09:31)
--- NOTE | 2021-07-18 10:08 | Post Operative Brief Note ---
Immediate Post Op Note v1 Date of Surgery July 18, 2021 Pre & Post Diagnosis Operation Date: 07/18/21 07:15 Pre-Op Diagnosis: Status Post Marcel's Procedure Post-Op Diagnosis: Status Post Marcel's Procedure I identified the patient and participated in the time-out.: Yes Procedure Operation Date: 07/18/21 07:15 Actual Procedures p Exploratory Laparotomy with Reversal of Colostomy/Marcel's, umbilical hernia repair (Not Applicable) - Richard Jackson MD Surgeon Richard Jackson MD Geospatial Imagery Intelligence Analyst LYNETTE Denny assisted with tissue retraction and closure Estimated Blood Loss 25 Findings Consistent with Post-Op Diagnosis Drains Braden Catheter
--- NOTE | 2021-07-18 10:14 | Operative Report ---
Post Operative Report Pre & Post Diagnosis Operation Date: 07/18/21 07:15 Pre-Op Diagnosis: Status Post Marcel's Procedure Post-Op Diagnosis: Status Post Marcel's Procedure I identified the patient and participated in the time-out.: Yes Procedure Operation Date: 07/18/21 07:15 Actual Procedures p Exploratory Laparotomy with Reversal of Colostomy/Marcel's, umbilical hernia repair (Not Applicable) - Richard Jackson MD Surgeon Richard Jackson MD Advertising Account Executive LYNETTE Denny assisted with tissue retraction and closure Estimated Blood Loss 25 Findings Consistent with Post-Op Diagnosis 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 A timeout is performed, perioperative antibiotics were administered, SCD boots were placed. After adequate anesthesia and analgesia was obtained, the area was prepped and draped in the normal sterile fashion. The ostomy was closed with a 3-0 silk suture. The prior vertical midline incision was reopened with a 10 blade scalpel. This carried down to level subcutaneous tissue to routine level of the fascia. The fascia was entered and the incision was opened to its fullest extent. Adhesions to the anterior yuan wall were taken down carefully with judicious use of electrocautery as well as blunt dissection. Dissection made its way back to the area underneath the ostomy site. This was freed up internally. At this point, elliptical incision was made around the ostomy and dissection proceeded down towards the level of the fascia. This dissection was completed with electrocautery as well as blunt dissection, and the ostomy was dropped through the fascia back into the abdomen, where it was brought into the midline wounds and freed up completely. The omental fat was cleaned off as well as the mesent shailesh, and the BEBA stapler was used to transect the ostomy, which was sent off for specimen. We were then able to identify the distal limb of the colon. This was freed up from the surrounding tissues with a combination of blunt dissection and judicious use of the electrocautery. Thick adhesions were taken down with the LigaSure device. The 2 ends of the colon were brought together and noted to c ome together without tension. The BEBA stapler was used to create a [id number], functional end-to-end anastomosis. The resulting common channel was then closed with the TA stapler. This was oversewn with a few 3-0 silk sutures. Attention was turned to hemostasis, which was found to be excellent. The abdomen was copiously irrigated and suctioned free and again hemostasis was checked and attended was excellent. We turned our attention to the fascia in the midline incision. This was freed up from the surrounding tissue with electrocautery. In the apex of the incision, we found a significant amount of Croatian cheese type hernia defects. These were all joined into 1, and the hernias were reduced back into the abdominal cavity. Attenuated fascia was excised back to good fascia. The inc ision was then closed with a running #1 Prolene suture. The fascia in the ostomy site was also closed with interrupted [id number] #1 Prolene sutures. The skin was closed with surgical clips. In the ostomy site, packing was placed between the surgical clips. Dressings were applied. A binder was applied. He tolerated the procedure without complication, transferred in stable condition to the PACU. All instrument, needle, and sponge counts were correct at the end of the case. My tv production assistant was necessary throughout the procedure for tissue retraction, possible camera operation, and closure of the wounds. I understand that section 1842(b)(7)(D) of the Social Security act generally prohibits Medicare physician fee schedule payment for the services of assistants at surgery in teaching hospitals when qualified residents are available to furnish such services. I certify that the services for which payment is claimed were medically necessary and that no qualified resident was available to perform the services. I further understand that these services are subject to postpayment review by the Medicare carrier. I attest to the content of the Intraoperative Record and any orders documented therein. Any exceptions are noted below.
[2021-07-18] MEDS: fentaNYL citrate 100 MCG/2 ML VIAL IV PRN ×2 (10:36→10:41)
--- NOTE | 2021-07-18 11:37 | Anesthesiology Progress Note ---
Date of Service July 18, 2021 Anesthesia Post Procedure Vital Signs Vital Signs: Temp Pulse Pulse Resp BP BP Pulse Ox 07/18/21 11:15 96 H 16 148/72 H 93 07/18/21 11:00 91 H 16 162/79 H 94 07/18/21 10:50 93 H 18 149/83 H 95 07/18/21 10:40 100 H 16 177/78 H 93 07/18/21 10:30 104 H 22 163/84 H 93 07/18/21 10:20 36.2 C L 104 H 18 175/95 H 91 07/18/21 05:55 37 C 100 H 20 154/89 H 96 Pain Intensity Abdomen: Pain Intensity: 3 Transfer of Care Handoff Completed per policy Notes Mental Status: alert / awake / arousable and participated in evaluation Patient Amnestic to Procedure: Yes Nausea / Vomiting: adequately controlled Pain: adequately controlled Airway Patency, RR, SpO2: stable & adequate BP & HR: stable & adequate Hydration State: stable & adequate Anesthetic Complications: no major complications apparent and Pt Satisfied with anesthetic care
[2021-07-18] MEDS ORDERED: PROMETHAZINE HCL 12.5 MG in SODIUM CHLORIDE 0.9% 50 ML IV PRN (11:48)
[2021-07-18] MEDS ORDERED: diphenhydrAMINE 50 MG/ML VIAL IV PRN (11:48)
[2021-07-18] MEDS ORDERED: NALOXONE HCL 0.4 MG/1 ML VIAL/CARP IV PRN (11:48)
[2021-07-18] MEDS ORDERED: hydrALAZINE HCL 20 MG/ML VIAL IV PRN (11:48)
[2021-07-18] MEDS: LACTATED RINGER'S 1,000 ML IV SCH (12:07)
[2021-07-18] MEDS: MoRPHine SULFATE PCA 30 MG/30 ML IV PRN ×3 (12:35→18:08)
[2021-07-18] MEDS: SODIUM CHLORIDE 0.9% 1000ML 1,000 ML IV SCH (12:36)
[2021-07-18] MEDS: ENOXAPARIN INJ 40 MG/0.4 ML SYR SQ SCH (14:12)
[2021-07-18] MEDS: ACETAMINOPHEN 1000 MG/100 ML IV IV SCH ×2 (14:12→22:12)
[2021-07-19] MEDS: MoRPHine SULFATE PCA 30 MG/30 ML IV PRN ×4 (01:55→16:15)
[2021-07-19] MEDS: LACTATED RINGER'S 1,000 ML IV SCH ×3 (03:06→23:33)
[2021-07-19] MEDS ORDERED: hydrALAZINE HCL 20 MG/ML VIAL IV PRN (03:32)
[2021-07-19] MEDS: ACETAMINOPHEN 1000 MG/100 ML IV IV SCH ×3 (06:22→21:34)
[2021-07-19 08:44] LABS: Basophils # (auto) 0.01 K/uL (0-0.2); Basophils % (auto) 0.1 %; Eosinophils # (auto) 0.04 K/uL (0-0.5); Eosinophils % (auto) 0.2 %; Hematocrit (blood only) 39.6 % (42-52); Hemoglobin 13.6 g/dL (14.0-18.0); Immature Granulocytes # (auto) 0.06 K/uL (0.00-0.02); Immature Granulocytes % (auto) 0.3 %; Lymphocytes # (auto) 1.84 K/uL (1.2-3.4); Lymphocytes % (auto) 10.1 %; Mean Corpuscular Hemoglobin 29.1 pg (25-34); Mean Corpuscular Hgb Conc 34.3 g/dL (32-36); Mean Corpuscular Volume 84.6 fL (80-100); Mean Platelet Volume 9.6 fL (7.4-10.4); Monocytes # (auto) 1.51 K/uL (0.11-0.59); Monocytes % (auto) 8.3 %; Neutrophils # (auto) 14.78 K/uL (1.4-6.5); Platelet Count 237 K/uL (130-400); RDW Coefficient of Variation 14.5 % (11.5-14.5); RDW Standard Deviation 44.6 fL (36.4-46.3); Red Blood Count 4.68 M/uL (4.7-6.1); White Blood Count 18.24 K/uL (4.8-10.8)
[2021-07-19 09:09] LABS: Albumin Globulin Ratio 1.3 (0.9-2); Albumin Level 3.8 gm/dl (3.4-5.0); Bilirubin,Total 0.5 mg/dl (0.2-1.0); Calcium 8.6 mg/dl (8.5-10.1); Creatinine Clr Calc Pharmacy 151.1 ml/min; Est GFR (African American) 92.1 ml/min; Est GFR (Non-African American) 79.5 ml/min; Potassium 4.4 mmol/L (3.5-5.1); Total Protein 6.8 gm/dl (6.0-8.3)
--- NOTE | 2021-07-19 10:09 | Surgery Progress Note ---
Date of Service July 19, 2021 Assessment & Plan (1) Post-operative state: Plan: POD#1 s/p colostomy reversal encourage pulmonary toilet/incentive spirometry/early ambulation Clear liquid diet DVT prophylaxis with Lovenox and SCD boots Daily labs Monitor blood pressure /hydralazine for hypertension Awaiting return of bowel function Admission and Anticipated Discharge Date Admission Date: July 18, 2021 Subjective Postop day 1 status post colostomy takedown. He is feeling sore, however his pain is under control. He denies nausea vomiting. He has been drinking water. He denies flatus. He denies fevers or chills. He was up and standing at the side of the bed this morning. Physical Exam Constitutional: WD/WN, vitals as above Neck: trachea midline, no thyromegaly Gastrointestinal (Abdomen): Inspection/Auscultation: abdomen not distended Percussion/Palpation: + abdomen tender ( Incisional) and abdomen soft; no guarding and abdomen not rigid dressing is clean, dry, intact Musculoskeletal: no cyanosis or clubbing, extremities motor strength 5/5 Psychiatric: A+Ox3, euthymic affect Results & Data ([facility]) Vital Signs (Past 12 Hours) Vital Signs Temp Pulse Resp BP Pulse Ox 07/19/21 08:05 36.5 C 84 15 144/86 H 96 07/19/21 03:07 36.7 C 92 H 17 163/73 H 94 07/18/21 22:48 36.5 C 89 18 163/82 H 94 Laboratory Results 07/19/21 07/19/21 Range/Units 08:17 08:17 WBC 18.24 H (4.8-10.8) K/uL RBC 4.68 L (4.7-6.1) M/uL Hgb 13.6 L (14.0-18.0) g/dL Hct 39.6 L (42-52) % MCV 84.6 (80-100) fL MCH 29.1 (25-34) pg MCHC 34.3 (32-36) g/dL RDW Std Deviation 44.6 (36.4-46.3) fL RDW Coeff of Ena 14.5 (11.5-14.5) % Plt Count 237 (130-400) K/uL MPV 9.6 (7.4-10.4) fL Immature Gran % (Auto) 0.3 % Neut % (Auto) 81.0 % Lymph % (Auto) 10.1 % [place] % (Auto) 8.3 % Eos % (Auto) 0.2 % Baso % (Auto) 0.1 % Neut # (Auto) 14.78 H (1.4-6.5) K/uL Lymph # (Auto) 1.84 (1.2-3.4) K/uL [place] # (Auto) 1.51 H (0.11-0.59) K/uL Eos # (Auto) 0.04 (0-0.5) K/uL Baso # (Auto) 0.01 (0-0.2) K/uL Immature Gran # (Auto) 0.06 H (0.00-0.02) K/uL Sodium 133 L (136-145) mmol/L Potassium 4.4 (3.5-5.1) mmol/L Chloride 101 (98-107) mmol/L Carbon Dioxide 27 (21-32) mmol/L Anion Gap 5 (3-11) BUN 19 (6-23) mg/dl Creatinine 1.12 (0.6-1.4) mg/dl Est Cr Clr Drug Dosing 151.1 ml/min Est GFR ( Amer) 92.1 ml/min Est GFR (Non-Af Amer) 79.5 ml/min BUN/Creatinine Ratio 17.0 (10-20) Glucose 116 H (70-99(Fasting)) mg/dl Calcium 8.6 (8.5-10.1) mg/dl Total Bilirubin 0.5 (0.2-1.0) mg/dl AST 18 (13-39) U/L ALT 21 (7-52) U/L Alkaline Phosphatase 56 (34-104) U/L Total Protein 6.8 (6.0-8.3) gm/dl Albumin 3.8 (3.4-5.0) gm/dl Globulin 3.0 (2.5-4.0) gm/dl Albumin/Globulin Ratio 1.3 (0.9-2)
[2021-07-19] MEDS: SODIUM CHLORIDE 0.9% 1000ML 1,000 ML IV SCH (13:04)
[2021-07-19] MEDS: ENOXAPARIN INJ 40 MG/0.4 ML SYR SQ SCH (13:05)
[2021-07-20] MEDS: MoRPHine SULFATE PCA 30 MG/30 ML IV PRN (03:32)
[2021-07-20] MEDS: ACETAMINOPHEN 1000 MG/100 ML IV IV SCH ×3 (05:53→21:47)
[2021-07-20 07:16] LABS: Basophils # (auto) 0.02 K/uL (0-0.2); Basophils % (auto) 0.1 %; Eosinophils # (auto) 0.13 K/uL (0-0.5); Eosinophils % (auto) 0.9 %; Hematocrit (blood only) 36.6 % (42-52); Immature Granulocytes # (auto) 0.04 K/uL (0.00-0.02); Immature Granulocytes % (auto) 0.3 %; Lymphocytes # (auto) 2.36 K/uL (1.2-3.4); Lymphocytes % (auto) 16.6 %; Mean Corpuscular Hemoglobin 30.2 pg (25-34); Mean Corpuscular Hgb Conc 35.5 g/dL (32-36); Mean Corpuscular Volume 85.1 fL (80-100); Mean Platelet Volume 9.4 fL (7.4-10.4); Monocytes # (auto) 1.58 K/uL (0.11-0.59); Monocytes % (auto) 11.1 %; Neutrophils # (auto) 10.06 K/uL (1.4-6.5); Platelet Count 180 K/uL (130-400); RDW Coefficient of Variation 14.7 % (11.5-14.5); RDW Standard Deviation 45.9 fL (36.4-46.3); White Blood Count 14.19 K/uL (4.8-10.8)
[2021-07-20 07:59] LABS: Albumin Globulin Ratio 1.3 (0.9-2); Albumin Level 3.5 gm/dl (3.4-5.0); Bilirubin,Total 0.5 mg/dl (0.2-1.0); Calcium 8.3 mg/dl (8.5-10.1); Creatinine Clr Calc Pharmacy 183.9 ml/min; Est GFR (African American) 116.8 ml/min; Est GFR (Non-African American) 100.8 ml/min; Globulin 2.8 gm/dl (2.5-4.0); Potassium 4.2 mmol/L (3.5-5.1); Total Protein 6.3 gm/dl (6.0-8.3)
[2021-07-20] MEDS: LACTATED RINGER'S 1,000 ML IV SCH ×2 (09:24→19:36)
[2021-07-20] MEDS: SODIUM CHLORIDE 0.9% 1000ML 1,000 ML IV SCH (12:37)
[2021-07-20] MEDS: ENOXAPARIN INJ 40 MG/0.4 ML SYR SQ SCH (14:24)
--- NOTE | 2021-07-20 14:28 | Surgery Progress Note ---
Date of Service July 20, 2021 Assessment & Plan (1) Post-operative state: Plan: POD#2 s/p colostomy reversal encourage pulmonary toilet/incentive spirometry/early ambulation continue clear liquid diet DVT prophylaxis with Lovenox and SCD boots Daily labs Monitor blood pressure /hydralazine for hypertension Awaiting return of bowel function Admission and Anticipated Discharge Date Admission Date: July 18, 2021 Subjective Postop day 2 status post colostomy takedown. He is feeling better. He denies nausea vomiting. He is tolerating clears. He denies flatus. He denies fevers or chills. He was up and active this morning. Physical Exam Constitutional: WD/WN, vitals as above Neck: trachea midline, no thyromegaly Gastrointestinal (Abdomen): Inspection/Auscultation: abdomen not distended Percussion/Palpation: + abdomen tender ( Incisional) and abdomen soft; no guarding and abdomen not rigid incision - evelyne; clean and dry/intact; packing removed from the ostomy incision site Musculoskeletal: no cyanosis or clubbing, extremities motor strength 5/5 Psychiatric: A+Ox3, euthymic affect Results & Data ([facility]) Vital Signs (Past 12 Hours) Vital Signs Temp Pulse Pulse Resp BP Pulse Ox 07/20/21 11:00 37.0 C 101 H 18 112/66 98 07/20/21 08:00 36.9 C 94 H 18 135/77 95 Laboratory Results 07/20/21 07/20/21 Range/Units 06:58 06:58 WBC 14.19 H (4.8-10.8) K/uL RBC 4.30 L (4.7-6.1) M/uL Hgb 13.0 L (14.0-18.0) g/dL Hct 36.6 L (42-52) % MCV 85.1 (80-100) fL MCH 30.2 (25-34) pg MCHC 35.5 (32-36) g/dL RDW Std Deviation 45.9 (36.4-46.3) fL RDW Coeff of Ena 14.7 H (11.5-14.5) % Plt Count 180 (130-400) K/uL MPV 9.4 (7.4-10.4) fL Immature Gran % (Auto) 0.3 % Neut % (Auto) 71.0 % Lymph % (Auto) 16.6 % [place] % (Auto) 11.1 % Eos % (Auto) 0.9 % Baso % (Auto) 0.1 % Neut # (Auto) 10.06 H (1.4-6.5) K/uL Lymph # (Auto) 2.36 (1.2-3.4) K/uL [place] # (Auto) 1.58 H (0.11-0.59) K/uL Eos # (Auto) 0.13 (0-0.5) K/uL Baso # (Auto) 0.02 (0-0.2) K/uL Immature Gran # (Auto) 0.04 H (0.00-0.02) K/uL Sodium 134 L (136-145) mmol/L Potassium 4.2 (3.5-5.1) mmol/L Chloride 103 (98-107) mmol/L Carbon Dioxide 27 (21-32) mmol/L Anion Gap 4 (3-11) BUN 12 (6-23) mg/dl Creatinine 0.92 (0.6-1.4) mg/dl Est Cr Clr Drug Dosing 183.9 ml/min Est GFR ( Amer) 116.8 ml/min Est GFR (Non-Af Amer) 100.8 ml/min BUN/Creatinine Ratio 13.0 (10-20) Glucose 102 H (70-99(Fasting)) mg/dl Calcium 8.3 L (8.5-10.1) mg/dl Total Bilirubin 0.5 (0.2-1.0) mg/dl AST 15 (13-39) U/L ALT 16 (7-52) U/L Alkaline Phosphatase 50 (34-104) U/L Total Protein 6.3 (6.0-8.3) gm/dl Albumin 3.5 (3.4-5.0) gm/dl Globulin 2.8 (2.5-4.0) gm/dl Albumin/Globulin Ratio 1.3 (0.9-2)
[2021-07-21] MEDS: LACTATED RINGER'S 1,000 ML IV SCH ×3 (04:33→22:18)
[2021-07-21] MEDS: ACETAMINOPHEN 1000 MG/100 ML IV IV SCH (05:30)
[2021-07-21 07:59] LABS: Basophils # (auto) 0.02 K/uL (0-0.2); Basophils % (auto) 0.2 %; Eosinophils # (auto) 0.24 K/uL (0-0.5); Eosinophils % (auto) 1.8 %; Hematocrit (blood only) 37.4 % (42-52); Hemoglobin 12.4 g/dL (14.0-18.0); Immature Granulocytes # (auto) 0.04 K/uL (0.00-0.02); Immature Granulocytes % (auto) 0.3 %; Lymphocytes # (auto) 2.39 K/uL (1.2-3.4); Mean Corpuscular Hemoglobin 28.6 pg (25-34); Mean Corpuscular Hgb Conc 33.2 g/dL (32-36); Mean Corpuscular Volume 86.2 fL (80-100); Mean Platelet Volume 9.6 fL (7.4-10.4); Monocytes # (auto) 0.99 K/uL (0.11-0.59); Monocytes % (auto) 7.4 %; Neutrophils # (auto) 9.61 K/uL (1.4-6.5); Neutrophils % (auto) 72.3 %; Platelet Count 231 K/uL (130-400); RDW Coefficient of Variation 14.6 % (11.5-14.5); RDW Standard Deviation 46.5 fL (36.4-46.3); Red Blood Count 4.34 M/uL (4.7-6.1); White Blood Count 13.29 K/uL (4.8-10.8)
[2021-07-21 08:32] LABS: Albumin Globulin Ratio 1.1 (0.9-2); Albumin Level 3.4 gm/dl (3.4-5.0); BUN Creatinine Ratio 11.7 (10-20); Bilirubin,Total 0.4 mg/dl (0.2-1.0); Calcium 8.5 mg/dl (8.5-10.1); Est GFR (African American) 113.8 ml/min; Est GFR (Non-African American) 98.2 ml/min; Total Protein 6.4 gm/dl (6.0-8.3)
--- NOTE | 2021-07-21 10:16 | Surgery Progress Note ---
Date of Service July 21, 2021 Assessment & Plan (1) Post-operative state: Plan: POD#3 s/p colostomy reversal encourage pulmonary toilet/incentive spirometry/early ambulation advance diet as tolerated DVT prophylaxis with Lovenox and SCD boots Daily labs Monitor blood pressure /hydralazine for hypertension Admission and Anticipated Discharge Date Admission Date: July 18, 2021 Subjective Postop day 3 status post colostomy takedown. He is feeling better. He denies nausea vomiting. He is tolerating clears. He has had 3 bowel movements this am. He denies fevers or chills. He was up and active this morning. Physical Exam Constitutional: WD/WN, vitals as above Neck: trachea midline, no thyromegaly Gastrointestinal (Abdomen): Inspection/Auscultation: abdomen not distended Percussion/Palpation: + abdomen tender ( Incisional) and abdomen soft; no guarding and abdomen not rigid incisions healing well; clean and dry; evelyne present Musculoskeletal: no cyanosis or clubbing, extremities motor strength 5/5 Psychiatric: A+Ox3, euthymic affect Results & Data ([facility]) Vital Signs (Past 12 Hours) Vital Signs Temp Pulse Resp BP Pulse Ox 07/21/21 07:03 36.6 C 84 16 121/76 98 07/21/21 02:13 36.9 C 88 18 149/98 H 96 07/20/21 22:48 36.9 C 106 H 18 135/84 96
[2021-07-21] MEDS: ENOXAPARIN INJ 40 MG/0.4 ML SYR SQ SCH ×2 (12:28→21:22)
[2021-07-21] MEDS ORDERED: oxyCODONE/ACETAMINOPHEN 5mg/325mg TAB PO PRN (13:51)
[2021-07-21] MEDS: SODIUM CHLORIDE 0.9% 1000ML 1,000 ML IV SCH (14:51)
[2021-07-22] MEDS: ENOXAPARIN INJ 40 MG/0.4 ML SYR SQ SCH (07:55)
[2021-07-22] MEDS: LACTATED RINGER'S 1,000 ML IV SCH (07:55)
[2021-07-22] MEDS: SODIUM CHLORIDE 0.9% 1000ML 1,000 ML IV SCH (07:56)
[2021-07-22 09:18] LABS: Basophils # (auto) 0.02 K/uL (0-0.2); Basophils % (auto) 0.2 %; Eosinophils # (auto) 0.22 K/uL (0-0.5); Eosinophils % (auto) 1.8 %; Hematocrit (blood only) 37.7 % (42-52); Hemoglobin 12.7 g/dL (14.0-18.0); Immature Granulocytes # (auto) 0.05 K/uL (0.00-0.02); Immature Granulocytes % (auto) 0.4 %; Lymphocytes # (auto) 2.37 K/uL (1.2-3.4); Lymphocytes % (auto) 18.9 %; Mean Corpuscular Hemoglobin 28.9 pg (25-34); Mean Corpuscular Hgb Conc 33.7 g/dL (32-36); Mean Corpuscular Volume 85.7 fL (80-100); Mean Platelet Volume 9.3 fL (7.4-10.4); Monocytes # (auto) 0.87 K/uL (0.11-0.59); Monocytes % (auto) 6.9 %; Neutrophils # (auto) 9.03 K/uL (1.4-6.5); Neutrophils % (auto) 71.8 %; Platelet Count 263 K/uL (130-400); RDW Coefficient of Variation 14.2 % (11.5-14.5); White Blood Count 12.56 K/uL (4.8-10.8)
[2021-07-22 09:37] LABS: BUN Creatinine Ratio 12.6 (10-20); Calcium 8.8 mg/dl (8.5-10.1); Creatinine Clr Calc Pharmacy 194.5 ml/min; Est GFR (African American) 121.7 ml/min
--- NOTE | 2021-07-22 12:26 | Discharge Summary ---
Date of Service July 22, 2021 Admission HPI Per Admitting Provider Patient presented to [facility] for elective colostomy reversal by Dr. Jackson. Principal Diagnosis Colostomy reversal History of perforated sigmoid colon diverticulosis with end colostomy and Melo procedure Discharge Exam Constitutional WD/WN, vitals as above + morbidly obese, cooperative and comfortable; no acute distress and not ill appearing Neck normal visual inspection and trachea midline Respiratory normal respiratory effort; no respiratory distress, no labored breathing and no retractions Gastrointestinal (Abdomen) Inspection/Auscultation: abdomen normal to inspection and + abdominal surgical incision (intact with evelyne, serosanguineous drainage on dressing); abdomen not distended Percussion/Palpation: + abdomen tender (at midline incision) and abdomen soft; no guarding and abdomen not rigid Skin no rashes, warm and dry Psychiatric A+Ox3, euthymic affect Discharge Data Allergies Allergy/AdvReac Type Severity Reaction Status Date / Time No Known Allergies Allergy Verified 07/18/ 05:44 Procedures Performed Operation Date: 07/18/ 07:15 Actual Procedures p Exploratory Laparotomy with Reversal of Colostomy/Marcel's(Not Applicable) - Richard Jackson MD s umbilical hernia repair (Not Applicable) - Richard Jackson MD Hospital Course (1) Post-operative state: Patient was taken to operating room for elective colostomy reversal by Dr. Jackson. Patient tolerated procedure well and was transferred to recovery then to medical/surgical floor for postoperative care. 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 His diet was advanced initially from water to clear liquids on POD#1. Diet advanced to clears up to low fiber diet on POD #4. He had postop leukcoytosis of 18k which improved to 12k on POD # 4. His pain was controlled postoperatively with OTR OWNER OPERATOR TRUCK DRIVER and OTR OWNER OPERATOR TRUCK DRIVER was discontinued on POD # 3 and started on oral Percocet. He was discharged home on POD # 4 in stable condition. Total Time Total Time Spent Total Time Spent (In Minutes): 1 hour Total Time Includes: Examination of the Patient, Discharge Planning and Medication Reconciliation Discharge Plan Discharge Items Patient Disposition: Home - Self-Care Reason For Visit: Status Post Marcel's Procedure Discharge Diagnosis: Reversal of colostomy Activity: Per Instructions section Non-emergency contact: Primary Care Provider and Surgeon Call non-emergency contact if: you have any medication questions, your pain is not controlled, your pain is worsening, your pain is concerning for you, you have a fever, your temperature is above 101, your wound has increased redness, your wound has increased drainage and your wound pain has increased Follow-up/Referrals: Richard Jackson MD [Physician] - 07/29/21 1:00 pm PCP,NO [Primary Care Provider] - Diet: Low Fiber Addtl Attending Provider Instructions: Post-Surgical ~Discharge Instructions Activity Recommendations: - lifting limitation: (10 pounds for 6 weeks), - exercise/sex/sports limit: (nonstrenuous for 6 weeks), - driving or machine use limit: (none for 1 week until pain free and no longer taking narcotic pain medication), - Shower/bathe limit: (may shower beginning tomorrow) Diet: - Low fiber diet for 2-4 weeks SPECIAL CARE INSTRUCTIONS: - May shower. Let water run over area and pat dry. - Surgical evelyne will be removed in office. - Wear abdominal binder daily for support and compression. - Call the surgeon's office with any questions or concerns - - (ex. temperature higher than 101 degrees F, excessive bleeding or pain). MEDICATIONS: - Resume previous medications unless instructed otherwise by your surgeon. - May alternate extra strength Tylenol and Ibuprofen as needed for mild to moderate pain -650 mg Tylenol every 6 hours as needed - Ibuprofen 600 mg every 6 hours as needed (take with food and limit continuous use for no more than 3 days) - Percocet 1-2 tablets every 4 hours, as needed for moderate to severe pain FOLLOW UP VISIT: - Follow-up with Pamela Denny PA-C on Sunday07/29/2021 at 1:00 pm. Office number Pending Studies at Discharge: No Stand-Alone Forms: My [employer], Opioid Pain Management, Smoking Cessation Medications and DC Order Prescriptions: New oxycodone-acetaminophen [Percocet] 5-325 mg tablet 1 - 2 tab PO Q4H PRN (Reason: pain) Qty: 30 RF: 0 Continued multivitamin Tablet 1 tab PO QAM RF: 0 Lactinex 1 million cell tablet,chewable 1 tab PO BID Qty: 30 RF: 0 lisinopril-hydrochlorothiazide 20-12.5 mg Tablet 1 tab PO QAM RF: 0 amlodipine 5 mg Tablet 5 mg PO QAM RF: 0 Discharge Orders: Discharge Order (Routine); Ordered 07/22/21 Ordered By: Pamela Marquez/Other Patient Handouts: DVT Post Op Prevention Admission Data Admit Date/Time: 07/18/21 10:26 Attending Provider: Richard Jackson Admit Provider: Richard Jackson Primary Care Provider: PCPSAHIL
[2021-07-22] MEDS ORDERED: FLUARIX QUADRIVALENT 0.5 ML SYR IM ONE (12:36)
== END 2021-07-22 15:30 | disposition home or self-care (01) | DRG 346 ==
LOC: ASU 05:22 → 3N 10:26

== ENCOUNTER 2021-07-26 21:34 | Inpatient (IN) ==
[2021-07-26] MEDS ORDERED: PIPERACILL/TAZOBAC CONSULT ACTIVE PRN (23:04)
[2021-07-26] MEDS ORDERED: PIPERACILLIN/TAZOBACTAM 4.5 GM/120 ML BAG IV ONE (23:04)
--- NOTE | 2021-07-26 23:19 | History & Physical Report ---
Date of Service July 26, 2021 Assessment & Plan (1) Dehiscence of laparotomy wound: Plan: Morbid obesity with wound dehiscence of both skin and fascial layer. Last ate at 8:30 pm. Needs urgent return to OR for bowel washout and closure. Explained the use of retention sutures and abdominal binder to help prevent recurrent dehiscence. He is at high risk of later hernias due to his BMI and presence of prior multiple hernias suggestive of weaker fascia. Risks of bleeding, infection ,bowel injury, hernia, recurrent dehiscence all discussed and consent signed. For OR urgently. Will need IV antibiotics given likely contamination of bowel. Plan: History of Present Illness Chief Complaint: incision popping Primary Care Provider: NO PCP 46 yr old man s/p reversal of Marcel's pouch with Dr. Jackson on 07/18/21. Discharged on 07/22. Intraop findings notable for multiple incisional hernias with [place] cheese defects closed primarily. He was doing well until he sneezed today and felt a pop in the incision. Bowel visible. Had been wearing the ab dominal binder but did not today. Was starting to finally feel better and ready to return to work. No prior hernia repairs. No active smoking. No diabetes. Morbidly obese with BMI over 50. Allergies Allergy/AdvReac Type Severity Reaction Status Date / Time No Known Allergies Allergy Verified 07/26/21 22:51 Home Medications Medication Instructions Recorded Confirmed Type multivitamin 1 tab PO QAM 02/14/21 07/26/21 History Lactobacillus acidoph-L.bulgaricus 1 tab PO BID #30 tab 02/21/21 07/26/21 Rx 1 million cell chewable tablet (Lactinex) amlodipine 5 mg tablet 5 mg PO QAM 07/07/21 07/26/21 History lisinopril 20 1 tab PO QAM 07/07/21 07/26/21 History mg-hydrochlorothiazide 12.5 mg tablet oxycodone-acetaminophen 5 mg-325 1 - 2 tab PO Q4H PRN #30 tab 07/22/21 07/26/21 Rx mg tablet (Percocet) Past Med/Surg History Medical History Anxiety Bowel obstruction HX 01/2021 Hypertension controlled, stable per pt Morbid obesity with BMI of 50.0-59.9, adult Perforated abdominal viscus HX 01/2015 Pneumoperitoneum HX 01/2021 Ruptured appendicitis HX 1999 Surgical History History of arthroscopy RIGHT KNEE History of bowel resection WITH COLOSTOMY 02/14/2021: Grade 2 view, MAC#4, ETT#8.0 atraumatic x 1 + TAP. No post-op issues per anesthesia progress note. History of laparotomy S/P appendectomy 1999 Family History Grandfather (Paternal) Family hx of colon cancer Social History Smoking Status: Former smoker Cigarettes Per Day: 1-2 CIGS A WEEK; Second Hand Exposure: No; Hx Alcohol Use: No Hx Substance Use: No Preferred Language: Pashto Communication Ability: Effective Chemistry Lab Instructor Required: No Beliefs That Will Affect Care: None marital status: Current Living Situation: Spouse current occupational status: employed current occupation: [employer] Feels Safe at Home: Yes Assistive Devices: None Review of Systems Review of Systems: All systems reviewed & are unremarkable except as noted in HPI & below Physical Exam Constitutional: WD/WN, vitals as above Eyes: PERRL, conjunctivae normal, anicteric sclerae ENMT: external ear and nose normal, oropharynx normal Respiratory: normal respiratory effort, lungs clear to auscultation Cardiovascular: RRR, no murmur, no edema Gastrointestinal (Abdomen): Inspection/Auscultation: normal bowel sounds and + abdominal surgical incision (both superficial and deep wound dehiscence of over 10 cm with visible bowel); abdomen not distended Musculoskeletal: no cyanosis or clubbing, extremities motor strength 5/5 Neurologic: awake; no focal motor deficits Psychiatric: A+Ox3, euthymic affect Results & Data Results & Data ([facility]) Vital Signs (Past 12 Hours) Vital Signs Temp Pulse Resp BP Pulse Ox 07/26/21 21:40 37 C 86 18 115/79 97 Laboratory Results Abnormal lab results 07/26/21 Range/Units 23:50 WBC 13.24 H (4.8-10.8) K/uL RBC 4.50 L (4.7-6.1) M/uL Hgb 13.0 L (14.0-18.0) g/dL Hct 37.3 L (42-52) %
[2021-07-26] MEDS ORDERED: PROPOFOL IV EMULSION 10 MG/ML 20 ML VIAL IV ONE ×2 (23:47→23:50)
[2021-07-26] MEDS ORDERED: SUCCINYLCHOLINE CHLORIDE 20 MG/ML 10 ML VIAL IV ONE (23:47)
[2021-07-26] MEDS ORDERED: fentaNYL citrate 100 MCG/2 ML VIAL ONE (23:48)
[2021-07-26] MEDS ORDERED: LIDOCAINE 2% 2 ML VIAL/AMP(20MG/ML) INFIL ONE (23:50)
[2021-07-26] MEDS ORDERED: HYDROmorphone INJ 1 MG/ML SYRINGE IV PRN (23:54)
[2021-07-26] MEDS ORDERED: ePHEDrine sulfate 50 MG/ML AMP IV PRN (23:54)
[2021-07-26] MEDS ORDERED: ONDANSETRON INJ 2 MG/ML 2 ML VIAL IV PRN (23:54)
[2021-07-26] MEDS ORDERED: ATROPINE SULFATE 0.1 MG/ML 10ML SYR IV PRN (23:54)
[2021-07-26] MEDS ORDERED: fentaNYL citrate 100 MCG/2 ML VIAL IV PRN (23:54)
--- NOTE | 2021-07-27 00:05 | Anesthesiology Consultation ---
Date of Service July 27, 2021 Assessment & Plan (1) Encounter for pre-operative examination: Chart Review Chart Review: Acceptable Risk for Surgery Consults Requested none ASA [id number] Proposed Anesthesia Anesthesia Type: General Risk / Benefits Reviewed With: PT / POA / Parent / Guardian, Accepts Plan and Informed Consent Obtained History Surgery Operation Date: 07/26/21 00:30 Proposed Procedures p Incision and Drainage General - Yelena Aparicio MD Height/Weight Weight: 206 kg Allergies Allergy/AdvReac Type Severity Reaction Status Date / Time No Known Allergies Allergy Verified 07/26/21 22:51 Medications Home Medications Medication Instructions Recorded Confirmed Last Taken multivitamin 1 tab PO QAM 02/14/21 07/26/21 07/17/21 08:00 Lactobacillus acidoph-L.bulgaricus 1 tab PO BID #30 tab 02/21/21 07/26/21 Unknown 1 million cell chewable tablet (Lactinex) amlodipine 5 mg tablet 5 mg PO QAM 07/07/21 07/26/21 07/18/21 04:30 lisinopril 20 1 tab PO QAM 07/07/21 07/26/21 07/17/21 08:00 mg-hydrochlorothiazide 12.5 mg tablet oxycodone-acetaminophen 5 mg-325 1 - 2 tab PO Q4H PRN #30 tab 07/22/21 07/26/21 Unknown mg tablet (Percocet) NPO Date Last Intake of Fluids: 07/26/21 Time Last Intake of Fluids: 20:00 Date Last Intake of Solids: 07/26/21 Time Last Intake of Solids: 20:00 Past Medical History Medical History Anxiety Bowel obstruction HX 01/2021 Hypertension controlled, stable per pt Morbid obesity with BMI of 50.0-59.9, adult Perforated abdominal viscus HX 01/2015 Pneumoperitoneum HX 01/2021 Ruptured appendicitis HX 1999 Exercise / Class Metabolic Activity II 4-5 Yardwork/Stairs/Walk up hill Past Family History Family History Grandfather (Paternal) Family hx of colon cancer Past Surgical History Surgical History History of arthroscopy RIGHT KNEE History of bowel resection WITH COLOSTOMY 02/14/2021: Grade 2 view, MAC#4, ETT#8.0 atraumatic x 1 + TAP. No post-op issues per anesthesia progress note. History of laparotomy S/P appendectomy 1999 Past Anesthesia History No Hx of Anesthesia Complications and No Family Hx of Anesthesia Complications History of PONV No Hx of PONV and No Hx of Motion Sickness Social History Smoking Status: Former smoker Smoking cigarettes per day: 1-2 CIGS A WEEK Hx Alcohol Use: No Alcohol type: beer Hx Substance Use: No Physical Exam Vital Signs Last Vital Signs Temp 98.6 F 07/26/21 21:40 Pulse 78 07/26/21 23:30 Resp 18 07/26/21 23:30 BP 161/88 H 07/26/21 23:30 Pulse Ox 96 07/26/21 23:48 ENMT Mouth: no dentition abnormality Thyromental Distance: > or= 3.5 Finger Breadths Mallampati Class: III Neck normal visual inspection Respiratory normal respiratory effort Auscultation: lungs clear to auscultation bilaterally Cardiovascular Rate/Rhythm: regular rate and regular rhythm
[2021-07-27 00:06] LABS: Hematocrit (blood only) 37.3 % (42-52); Mean Corpuscular Hemoglobin 28.9 pg (25-34); Mean Corpuscular Hgb Conc 34.9 g/dL (32-36); Mean Corpuscular Volume 82.9 fL (80-100); Platelet Count 269 K/uL (130-400); RDW Coefficient of Variation 14.2 % (11.5-14.5); RDW Standard Deviation 42.8 fL (36.4-46.3); White Blood Count 13.24 K/uL (4.8-10.8)
--- NOTE | 2021-07-27 00:17 | Emergency Department Note ---
Impression & Plan Dehiscence of laparotomy wound ED Provider Note CHIEF COMPLAINT: Abdominal pain HISTORY OF PRESENT ILLNESS: This 46-year-old man patient presents to the emergency department via private vehicle for evaluation of dehisced incision site. Patient states he was doing well after his Marcel's Procedure on 07/18/2021. He was discharged on 07/22/2021. This evening, he got up to go to the bathroom. He sneezed and felt a sudden tearing sensation in his abdomen. He states his noticed that his bowel seem to be visible, became concerned, and brought him immediately to the emergency department. The patient reports minimal pain. He rates his discomfort about a 2/10. No nausea or vomiting. No fever. REVIEW OF SYSTEMS: A 10 system review of systems was performed with positives and pertinent negatives listed in the history of present illness. All other systems were reviewed and are negative. ALLERGIES: None PHYSICAL EXAM: VITALS: Vitals are noted on the nurse's note and reviewed by myself. Vital signs stable. GENERAL: This is a 46 year old white male, in no acute distress, nondiaphoretic, well-developed well-nourished. SKIN: The skin was without rashes, erythema, edema, or bruising. There is no tenting of the skin. Capillary refill less than 2 seconds. HEAD: Normocephalic atraumatic. EYES: Conjunctivae without injection, sclerae without icterus. NECK: Supple without nuchal rigidity. No lymphadenopathy. No JVD. HEART: Regular rate and rhythm without murmurs gallops or rubs. LUNGS: Clear to auscultation bilaterally without wheezes, rales or rhonchi. No retractions or accessory muscle use. ABDOMEN: Dehiscence of the incision site with obvious bowel visible within the wound. No active bleeding. No surrounding erythema. MUSCULOSKELETAL: No muscle atrophy, erythema, or edema noted. Full range of motion without joint tenderness in all extremities. No tenderness to palpation. Normal gait. Strength 5/5 throughout. NEURO: Patient was alert and oriented to person place and time. No focal neurological deficits. EMERGENCY DEPARTMENT COURSE: The patient was seen and evaluated as above. Concern for dehiscence of the laparotomy incision site. IV access obtained, labs drawn. The patient was medicated with Zosyn. I consulted with Dr. Aparicio, general surgeon on-call. She did agree to see the patient and will contact the OR to take him for washout and closure. Please see her dictation regarding final disposition and plan of this patient. Differential diagnosis includes dehiscence, infection, trauma, among others I attest that I have personally reviewed the patient's current medication list. Blood Pressure Screening: Patient was found to have a slightly elevated blood pressure due to circumstances. I do not believe that the patient requires hypertension monitoring. The chart was completed utilizing [employer] voice recognition software. Grammatical errors, random word insertions, pronoun errors, and incomplete sentences are an occasional consequence of this system due to software limitations, ambient noise, and hardware issues. Any formal questions or concerns about the content, text, or information contained within the body of this dictation should be directly addressed to the provider for clarification. Past Med/Surg History Medical History Anxiety Bowel obstruction HX 01/2021 Hypertension controlled, stable per pt Morbid obesity with BMI of 50.0-59.9, adult Perforated abdominal viscus HX 01/2015 Pneumoperitoneum HX 01/2021 Ruptured appendicitis HX 1999 Surgical History History of arthroscopy RIGHT KNEE History of bowel resection WITH COLOSTOMY 02/14/2021: Grade 2 view, MAC#4, ETT#8.0 atraumatic x 1 + TAP. No post-op issues per anesthesia progress note. History of laparotomy S/P appendectomy 1999 Family History Grandfather (Paternal) Family hx of colon cancer Social History Smoking Status: Former smoker Cigarettes Per Day: 1-2 CIGS A WEEK; Second Hand Exposure: No; Hx Alcohol Use: No Hx Substance Use: No Preferred Language: Iraqi Communication Ability: Effective District Wire Chief Required: No Beliefs That Will Affect Care: None marital status: Current Living Situation: Spouse current occupational status: employed current occupation: [employer] Feels Safe at Home: Yes Assistive Devices: None Allergies Allergies Allergy/AdvReac Type Severity Reaction Status Date / Time No Known Allergies Allergy Verified 07/26/21 22:51 Home Meds Home Medications Medication Instructions Recorded Confirmed multivitamin 1 tab PO QAM 02/14/21 07/26/21 amlodipine 5 mg tablet 5 mg PO QAM 07/07/21 07/26/21 lisinopril 20 1 tab PO QAM 07/07/21 07/26/21 mg-hydrochlorothiazide 12.5 mg tablet Previous Rx's Medication Instructions Recorded Lactobacillus acidoph-L.bulgaricus 1 tab PO BID #30 tab 02/21/21 1 million cell chewable tablet (Lactinex) oxycodone-acetaminophen 5 mg-325 1 - 2 tab PO Q4H PRN #30 tab 07/22/21 mg tablet (Percocet) Results & Data (ED) Vital Signs Vital Signs - 24 hr 07/26/21 21:40 07/26/21 23:30 07/26/21 23:48 Temperature 37 C Temperature Source Oral Pulse Rate 86 Pulse Rate [Finger] 78 Respiratory Rate 18 18 Blood Pressure 115/79 Blood Pressure [Right Arm] 161/88 H Blood Pressure Mean 91 Blood Pressure Mean [Right Arm] 112 Pulse Oximetry 97 96 96 Oxygen Delivery Method Room Air Room Air Room Air Sepsis Recent Fever Within 48 Hours No Sepsis New/Unexplained Change in Mental Status N/A Sepsis Action Taken by Nursing No Action Required Laboratory Data Result diagrams: 07/26/21 23:50 07/26/21 23:50 Lab Results 07/26/21 07/26/21 07/26/21 Range/Units 23:15 23:50 23:50 WBC 13.24 H (4.8-10.8) K/uL RBC 4.50 L (4.7-6.1) M/uL Hgb 13.0 L (14.0-18.0) g/dL Hct 37.3 L (42-52) % MCV 82.9 (80-100) fL MCH 28.9 (25-34) pg MCHC 34.9 (32-36) g/dL RDW Std Deviation 42.8 (36.4-46.3) fL RDW Coeff of Ena 14.2 (11.5-14.5) % Plt Count 269 (130-400) K/uL MPV 9.0 (7.4-10.4) fL Neutrophils % (Manual) 70.0 % Lymphocytes % (Manual) 30.0 % Neutrophils # (Manual) 9.27 H (1.4-6.5) K/uL Total Absolute Neuts 9.27 H (1.4-6.5) K/uL Lymphocytes # (Manual) 3.97 H (1.2-3.4) K/uL Total Abs Lymphocytes 3.97 H (1.2-3.4) K/uL PT 10.3 (9.0-12.0) Seconds INR 1.0 (0.9-1.1) Sodium (136-145) mmol/L Potassium (3.5-5.1) mmol/L Chloride (98-107) mmol/L Carbon Dioxide (21-32) mmol/L Anion Gap (3-11) BUN (6-23) mg/dl Creatinine (0.6-1.4) mg/dl Est Cr Clr Drug Dosing Est GFR ( Amer) ml/min Est GFR (Non-Af Amer) ml/min BUN/Creatinine Ratio (10-20) Glucose (70-99(Fasting)) mg/dl Calcium (8.5-10.1) mg/dl Total Bilirubin (0.2-1.0) mg/dl AST (13-39) U/L ALT (7-52) U/L Alkaline Phosphatase (34-104) U/L Total Protein (6.0-8.3) gm/dl Albumin (3.4-5.0) gm/dl Globulin (2.5-4.0) gm/dl Albumin/Globulin Ratio (0.9-2) SARS-CoV-2, RNA, NAAT NEGATIVE (NEGATIVE) 07/26/21 Range/Units 23:50 WBC (4.8-10.8) K/uL RBC (4.7-6.1) M/uL Hgb (14.0-18.0) g/dL Hct (42-52) % MCV (80-100) fL MCH (25-34) pg MCHC (32-36) g/dL RDW Std Deviation (36.4-46.3) fL RDW Coeff of Ena (11.5-14.5) % Plt Count (130-400) K/uL MPV (7.4-10.4) fL Neutrophils % (Manual) % Lymphocytes % (Manual) % Neutrophils # (Manual) (1.4-6.5) K/uL Total Absolute Neuts (1.4-6.5) K/uL Lymphocytes # (Manual) (1.2-3.4) K/uL Total Abs Lymphocytes (1.2-3.4) K/uL PT (9.0-12.0) Seconds INR (0.9-1.1) Sodium 138 (136-145) mmol/L Potassium 4.1 (3.5-5.1) mmol/L Chloride 106 (98-107) mmol/L Carbon Dioxide 26 (21-32) mmol/L Anion Gap 6 (3-11) BUN 18 (6-23) mg/dl Creatinine 1.07 (0.6-1.4) mg/dl Est Cr Clr Drug Dosing Not Reportable Est GFR ( Amer) 97.3 ml/min Est GFR (Non-Af Amer) 84.0 ml/min BUN/Creatinine Ratio 16.8 (10-20) Glucose 110 H (70-99(Fasting)) mg/dl Calcium 8.8 (8.5-10.1) mg/dl Total Bilirubin 0.2 (0.2-1.0) mg/dl AST 23 (13-39) U/L ALT 32 (7-52) U/L Alkaline Phosphatase 52 (34-104) U/L Total Protein 6.7 (6.0-8.3) gm/dl Albumin 3.5 (3.4-5.0) gm/dl Globulin 3.2 (2.5-4.0) gm/dl Albumin/Globulin Ratio 1.1 (0.9-2) SARS-CoV-2, RNA, NAAT (NEGATIVE) Administered Medications Discontinued Medications Enoxaparin Sodium (Enoxaparin Inj 30 Mg/0.3 Ml Syr) 30 mg SQ 0045 CRISTIAN Stop: 07/27/21 00:46 Last Admin: 07/27/21 00:51 Dose: 30 mg Documented by: [id number] Piperacillin Sod/Tazobactam Sod (Zosyn) 4.5 gm in 120 mls @ 240 mls/hr IV NOW ONE Stop: 07/26/21 23:33 Last Admin: 07/27/21 00:04 Dose: 240 mls/hr Documented by: [id number] Discharge Plan Visit Data Chief Complaint: Abdominal Pain Stated Complaint: Abdominal Pain ED Provider: Sam Torres ED Midlevel Provider: Johanny Kidd Discharge Problem: Dehiscence of laparotomy wound Patient Disposition: Admitted As Inpatient Discharge Instructions Interventions: ED Discharge Assessment Last Done: 07/27/21 00:06
[2021-07-27 00:21] LABS: Alanine Aminotransferase 32 U/L (7-52); Albumin Globulin Ratio 1.1 (0.9-2); Albumin Level 3.5 gm/dl (3.4-5.0); Alkaline Phosphatase 52 U/L (34-104); Anion Gap 6 (3-11); Aspartate Aminotransferase 23 U/L (13-39); BUN Creatinine Ratio 16.8 (10-20); Bilirubin,Total 0.2 mg/dl (0.2-1.0); Blood Urea Nitrogen 18 mg/dl (6-23); Calcium 8.8 mg/dl (8.5-10.1); Carbon Dioxide 26 mmol/L (21-32); Chloride 106 mmol/L (98-107); Est GFR (African American) 97.3 ml/min; Globulin 3.2 gm/dl (2.5-4.0); Glucose 110 mg/dl (70-99(Fasting)); Potassium 4.1 mmol/L (3.5-5.1); Sodium 138 mmol/L (136-145); Total Protein 6.7 gm/dl (6.0-8.3)
[2021-07-27 00:24] LABS: Prothrombin Time 10.3 Seconds (9.0-12.0)
[2021-07-27 00:45] LABS: ALC (manual) 3.97 K/uL (1.2-3.4); ANC (manual) 9.27 K/uL (1.4-6.5); Lymphocytes # (manual) 3.97 K/uL (1.2-3.4); Neutrophils # (manual) 9.27 K/uL (1.4-6.5)
[2021-07-27] MEDS ORDERED: ENOXAPARIN INJ 30 MG/0.3 ML SYR SQ SCH (00:45)
[2021-07-27] MEDS ORDERED: ONDANSETRON INJ 2 MG/ML 2 ML VIAL ONE (00:55)
--- NOTE | 2021-07-27 01:53 | Anesthesiology Progress Note ---
Date of Service July 27, 2021 Anesthesia Post Procedure Vital Signs Vital Signs: Temp Pulse Pulse Resp BP BP Pulse Ox 07/26/21 23:48 96 07/26/21 23:30 78 18 161/88 H 96 07/26/21 21:40 98.6 F 86 18 115/79 97 Pain Intensity Abdomen: Pain Intensity: 4 Transfer of Care Handoff Completed per policy Notes Mental Status: alert / awake / arousable and participated in evaluation Patient Amnestic to Procedure: Yes Nausea / Vomiting: adequately controlled Pain: adequately controlled Airway Patency, RR, SpO2: stable & adequate BP & HR: stable & adequate Hydration State: stable & adequate Anesthetic Complications: no major complications apparent and Pt Satisfied with anesthetic care
--- NOTE | 2021-07-27 01:58 | Operative Report ---
Post Operative Report Pre & Post Diagnosis Operation Date: 07/26/21 00:30 Pre-Op Diagnosis: Dehiscence of Laparotomy Wound Post-Op Diagnosis: Dehiscence of Laparotomy Wound I identified the patient and participated in the time-out.: Yes Procedure Operation Date: 07/26/21 00:30 Actual Procedures p Incision and Drainage General(Not Applicable) - Yelena Aparicio MD Surgeon Yelena Aparicio MD Derrick Man none Estimated Blood Loss 2 Findings See Below (eviscerated bowel with dehiscence from top to bottom ) dehiscence of entire wound from 2 inches below superior aspect of incision down to pelvis dense adhesions of bowel to edges of fascia, difference between edges in width about 5-6 inches Specimens none Drains 3 flat ROSALVA within open abdomen dressing (2 stitched to skin, 1 laid on top) Anesthesia Type General Complications none Disposition Accompanied Patient To Recovery: Yes Indications 46 yr old man with morbid obesity (BMI over 50) who underwent takedown of Marcel's on 07/[address] Jackson. Sneezed earlier today and felt a pop. Noticed to have wound dehiscence of about 4 inches with eviscerated bowel. consented for washout and closure. Description of Procedure He received zosyn IV and lovenox SQ preoperatively. After the induction of GET, his abdomen was prepped with betadine and draped. Ines were removed superior and inferior to the dehiscence and it was apparent that his entire wound had dehisced down to the pelvic region. The suture/ knot could be visualized at the bottom of the incision and the superior suture was free floating and removed. An attempt was made to free the fascia from the bowel. This was densely adherent and could not be . The fascial defect was about 5-6 inches in width. Due to the patient's size, tension on the wound and inability to free fascial edges, decision was made to keep the abdomen open and transfer to a tertiary care facility. An XTAC open abdominal device was used over the bowel and stapled to the skin. 2 10 flat ROSALVA drains were placed under the device and sutured to the skin. Ioban was placed over the whole area. The drains were not holding suction so a small slit was cut in the ioban/ device and another drain laid over this with another ioban over it. This appeared to be holding slightly better. He was extubated and taken to the ICU in stable condition. I attest to the content of the Intraoperative Record and any orders documented therein. Any exceptions are noted below.
--- NOTE | 2021-07-27 02:07 | Discharge Summary ---
Date of Service July 27, 2021 Admission HPI Per Admitting Provider 46 yr old man s/p reversal of Marcel's pouch with Dr. Jackson on 07/18/21. Discharged on 07/22. Intraop findings notable for multiple incisional hernias with georgian cheese defects closed primarily. He was doing well until he sneezed today and felt a pop in the incision. Bowel visible. Had been wearing the abdominal binder but did not today. Was starting to finally feel better and ready to return to work. No prior hernia repairs. No active smoking. No diabetes. Morbidly obese with BMI over 50. Admission Exam (Per Admitting) Constitutional WD/WN, vitals as above Eyes PERRL, conjunctivae normal, anicteric sclerae ENMT external ear and nose normal, oropharynx normal Respiratory normal respiratory effort, lungs clear to auscultation Cardiovascular RRR, no murmur, no edema Gastrointestinal (Abdomen) Inspection/Auscultation: normal bowel sounds and + abdominal surgical incision (both superficial and deep wound dehiscence of over 10 cm with visible bowel); abdomen not distended Musculoskeletal no cyanosis or clubbing, extremities motor strength 5/5 Neurologic awake; no focal motor deficits Psychiatric A+Ox3, euthymic affect Discharge Data Consultations 07/26/21 23:10 Consult General Surgery Stat Procedures Performed Operation Date: 07/26/21 00:30 Actual Procedures p Incision and Drainage General(Not Applicable) - Yelena Aparicio MD Hospital Course (1) Dehiscence of laparotomy wound: Morbid obesity with wound dehiscence of both skin and fascial layer. Last ate at 8:30 pm. Needs urgent return to OR for bowel washout and closure. Explained the use of retention sutures and abdominal binder to help prevent recurrent dehiscence. He is at high risk of later hernias due to his BMI and presence of prior multiple hernias suggestive of weaker fascia. Risks of bleeding, infection ,bowel injury, hernia, recurrent dehiscence all discussed and consent signed. For OR urgently. Will need IV antibiotics given likely contamination of bowel. Pt was taken to the OR and found to have dehiscence of entire wound with dense adhesions. Unable to be closed and open abdominal dressing (XTAC) placed. Taken to ICU with stable vital signs. Discussed with pt the need for transfer to tertiary care facility. This was arranged with [facility] and pt is to be transferred there.
[2021-07-27] MEDS ORDERED: MoRPHine SULFATE 4 MG/ML 1 ML CARP\\VIAL IV PRN (02:21)
[2021-07-27] MEDS ORDERED: PIPERACILLIN/TAZOBACTAM 3.375 GM in DEXTROSE 5% 100 ML IV SCH (02:21)
[2021-07-27] MEDS ORDERED: MoRPHine SULFATE 2 MG/ML CARP IV PRN (02:21)
[2021-07-27] MEDS ORDERED: LACTATED RINGER'S 1,000 ML IV SCH (02:21)
[2021-07-27] MEDS ORDERED: PIPERACILL/TAZOBAC CONSULT ACTIVE PRN (02:21)
[2021-07-27] MEDS ORDERED: ONDANSETRON INJ 2 MG/ML 2 ML VIAL IV PRN (02:21)
[2021-07-27] MEDS ORDERED: oxyCODONE/ACETAMINOPHEN 5mg/325mg TAB PO PRN (02:23)
[2021-07-27] MEDS ORDERED: LABETALOL HCL IV 5 MG/ML 20ML IV PRN (02:25)
--- NOTE | 2021-07-27 02:44 | Critical Care Consultation ---
Date of Consultation July 27, 2021 Assessment & Plan (1) Dehiscence of laparotomy wound: Impression: 46-year-old male presents to the ICU with dehiscence abdominal wound from ostomy reversal 1 week ago. Following washout, general surgery was unable to close wound and patient left with open abdomen and pending transfer to tertiary center for further management. Neuro - [facility] ICU: Negative Pain management: Morphine Cardiac - Currently hemodynamically stable and NSR on monitor. Continuous monitoring on telemetry HTNhold lisinopril for now. Will restart amlodipine. Labetalol as needed Respiratory - No history of pulmonary disease. Extubated postop without complications and currently maintaining oxygen saturation on room air. Continuous monitoring on pulse ox GI - Dehisced abdominal woundmanagement per general surgery, was unable to close wound in OR and patient to be transferred to tertiary center for further management with open abdomen. -ROSALVA drain x3 managed per general surgery -N.p.o. RENAL/LYTES - Creatinine within normal limits, monitor routine BMPs and replete electrolytes as indicated LR at 100 mL/h - Strict I's and O's ENDO - No history of diabetes or thyroid disease ICU hyperglycemic protocol HEME - H&H stable and no evidence of bleed, monitor routine CBCs ID - Empiric Zosyn LINES/IV ACCESS - Peripheral IVs DVT PROPHYLAXIS - SCDs, Lovenox Thank you for allowing us to participate in the care of this patient. Please refer to my attending physician's documentation for any further recommendations. (2) Morbid obesity: (3) DVT prophylaxis: (4) Hypertension: History of Present Illness Attending Physician: Yelena Aparicio MD History of Present Illness Patient is a 46-year-old male with past medical history of HTN, morbid obesity, multiple bowel surgeries who presents to the emergency department earlier this evening for evaluation of dehisced incision site. Patient recently underwent reversal of Melo's pouch with Dr. Jackson on 07/18/2021 and was discharged on 07/22. Patient states that he sneezed earlier today and felt a pop and noticed his bowels were visible. General surgery was consulted and patient went to the OR to undergo washout and closure. Unfortunately, due to patient's size and tension on the wound and inability to free fascial edges, decision was made to keep the abdomen open and transfer to tertiary facility. Patient has been accepted to [facility]. He is currently extubated postop and transferred to ICU and stable condition while awaiting transfer. On arrival to the ICU the patient is alert and oriented and hemodynamically stable. At this time, patient states that he is not currently in pain. He appears comfortable. He currently denies headache, dizziness, changes in vision, recent fevers, cough, shortness of breath, chest pain, palpitations, nausea or vomiting or diarrhea. Abdomen is tender to palpation. He currently has open abdomen with 3 ROSALVA drains. Will manage in ICU pending transfer. Allergies Allergy/AdvReac Type Severity Reaction Status Date / Time No Known Allergies Allergy Verified 07/26/21 22:51 Home Medications Medication Instructions Recorded Confirmed Type multivitamin 1 tab PO QAM 02/14/21 07/26/21 History Lactobacillus acidoph-L.bulgaricus 1 tab PO BID #30 tab 02/21/21 07/26/21 Rx 1 million cell chewable tablet (Lactinex) amlodipine 5 mg tablet 5 mg PO QAM 07/07/21 07/26/21 History lisinopril 20 1 tab PO QAM 07/07/21 07/26/21 History mg-hydrochlorothiazide 12.5 mg tablet oxycodone-acetaminophen 5 mg-325 1 - 2 tab PO Q4H PRN #30 tab 07/22/21 07/26/21 Rx mg tablet (Percocet) Patient History Medical History Anxiety Bowel obstruction HX 01/2021 Hypertension controlled, stable per pt Morbid obesity with BMI of 50.0-59.9, adult Perforated abdominal viscus HX 01/2015 Pneumoperitoneum HX 01/2021 Ruptured appendicitis HX 1999 Surgical History History of arthroscopy RIGHT KNEE History of bowel resection WITH COLOSTOMY 02/14/2021: Grade 2 view, MAC#4, ETT#8.0 atraumatic x 1 + TAP. No post-op issues per anesthesia progress note. History of laparotomy S/P appendectomy 1999 Family History Grandfather (Paternal) Family hx of colon cancer Social History Smoking Status: Former smoker Cigarettes Per Day: 1-2 CIGS A WEEK; Second Hand Exposure: No; Do You Dip or Chew Tobacco: No; Tobacco Cessation Education Requested by Patient: No Hx Alcohol Use: Yes Alcohol type: beer and wine Hx Substance Use: No Preferred Language: Ukrainian Communication Ability: Effective Neonatal Intensive Care Unit Nurse Required: No Beliefs That Will Affect Care: None marital status: Current Living Situation: Spouse current occupational status: employed current occupation: [employer] Feels Safe at Home: Yes Safety Concerns: Feels Safe At This Time Assistive Devices: None Review of Systems Review of Systems: All systems reviewed & are unremarkable except as noted in HPI & below Physical Exam Constitutional: + obese, cooperative and comfortable; no acute distress Eyes: PERRL, conjunctivae normal, anicteric sclerae ENMT: external ear and nose normal, oropharynx normal Neck: trachea midline, no thyromegaly Respiratory: normal respiratory effort, lungs clear to auscultation Cardiovascular: RRR, no murmur, no edema Heart Sounds: normal S1 and normal S2 Extremities: no edema Gastrointestinal (Abdomen): Patient with open midline incision of the abdomen with Ioban dressing and ROSALVA drain x3. Abdomen obese and tender to palpation. Bowel sounds auscultated all 4 quadrants. Musculoskeletal: no cyanosis or clubbing, extremities motor strength 5/5 Skin: no rashes, warm and dry Neurologic: PERRL, EOMI, accommodation nl, no face palsy, no dysarthria Psychiatric: A+Ox3, euthymic affect Results & Data Results & Data ([facility]) Vital Signs (Past 12 Hours) Vital Signs Temp Pulse Pulse Resp BP BP Pulse Ox 07/27/21 02:08 36.5 C 78 14 162/87 H 93 07/27/21 01:58 36.5 C 79 14 162/95 H 93 07/27/21 01:48 36.5 C 85 22 164/98 H 96 07/26/21 23:48 96 07/26/21 23:30 78 18 161/88 H 96 07/26/21 21:40 37 C 86 18 115/79 97 Coding Level of Care Code 47911 Inpt Consult Level 3 Diagnoses Dehiscence of laparotomy wound T81.31XA Morbid obesity E66.01 DVT prophylaxis Z29.9 Hypertension I10
[2021-07-27] MEDS ORDERED: PIPERACILLIN/TAZOBACTAM 4.5 GM in DEXTROSE 5% 100 ML IV SCH (06:00)
--- NOTE | 2021-07-27 07:59 | Communication Note ---
Date of Service: July 27, 2021 Patient seen and examined. EMR reviewed. Discussed with critical care MICHAEL overnight and with bedside nurse. The patient is doing well clinically. He is awake alert and conversant. He is on room air. He is slightly hypertensive but otherwise hemodynamically stable. He is not complaining of any abdominal pain or discomfort. He is pending transfer to a tertiary care facility. Continue to monitor the patient in the ICU for now. Wound management per general surgery. As he is n.p.o. will use low-dose labetalol as needed Coding Level of Care Code Critical Care micheal addt'l 30 min Comment [id number]
[2021-07-27] MEDS ORDERED: amLODIPine BESYLATE 5 MG TAB PO SCH (09:00)
[2021-07-27] MEDS ORDERED: ENOXAPARIN INJ 40 MG/0.4 ML SYR SQ SCH (09:00)
== END 2021-07-27 08:30 | disposition short-term general hospital (02) | DRG 920 ==
LOC: ED 21:34 → OR 07-27 00:06 → 1E 07-27 02:02

== ENCOUNTER 2024-05-23 11:44 | Inpatient (IN) ==
[2024-05-23 12:25] LABS: Appearance Urine Clear (Clear); Bilirubin Urine Negative (Negative); Blood Urine Negative (Negative); Color Urine Yellow; Glucose Urine UA 3+ (Negative); Ketones Urine 1+ (Negative); Leukocyte Esterase Urine Negative (Negative); Nitrite Urine Negative (Negative); Protein Urine Negative (Negative); Specific Gravity Urine 1.038 (1.000-1.030); Urobilinogen Urine Negative (Negative); pH Urine 5.5 (4.5-7.5)
[2024-05-23 12:27] LABS: Basophils # (auto) 0.06 K/uL (0.00-0.20); Basophils % (auto) 0.7 %; Eosinophils % (auto) 1.1 %; Hematocrit (blood only) 43.7 % (42.0-52.0); Hemoglobin 16.2 g/dl (14.0-18.0); Immature Granulocytes # (auto) 0.04 K/uL (0.01-0.20); Immature Granulocytes % (auto) 0.4 %; Lymphocytes # (auto) 2.01 K/uL (1.20-3.40); Lymphocytes % (auto) 22.1 %; Mean Corpuscular Hemoglobin 29.2 pg (25.0-34.0); Mean Corpuscular Hgb Conc 37.1 g/dL (32.0-36.0); Mean Corpuscular Volume 78.7 fL (80.0-100.0); Mean Platelet Volume 9.9 fL (9.4-12.4); Monocytes # (auto) 0.71 K/uL (0.11-0.59); Monocytes % (auto) 7.8 %; Neutrophils # (auto) 6.19 K/uL (1.40-6.50); Neutrophils % (auto) 67.9 %; Platelet Count 209 K/uL (130-400); RDW Coefficient of Variation 15.2 % (11.5-14.5); RDW Standard Deviation 42.7 fL (36.4-46.3); Red Blood Count 5.55 M/uL (4.70-6.10); White Blood Count 9.11 K/ul (4.8-10.8)
--- NOTE | 2024-05-23 13:01 | Electrocardiogram Report ---
Test Reason : Blood Pressure : */* mmHG Vent. Rate : 111 BPM Atrial Rate : 111 BPM P-R Int : 186 ms QRS Dur : 78 ms QT Int : 314 ms P-R-T Axes : 50 -49 67 degrees QTcB Int : 427 ms Sinus tachycardia Left axis deviation Abnormal ECG Confirmed by Neo Teixeira ([id number]) on 05/23/2024 1:00:20 PM Referred By: Confirmed By: Neo Teixeira
[2024-05-23 13:08] LABS: Alanine Aminotransferase 103 U/L (7-52); Albumin Level 4.1 gm/dl (3.4-5.0); Alkaline Phosphatase 112 U/L (34-104); Anion Gap 13 (3-11); Aspartate Aminotransferase 71 U/L (13-39); BUN Creatinine Ratio 17.6 (10-20); Bilirubin,Total 1.1 mg/dl (0.2-1.0); Blood Urea Nitrogen 22 mg/dl (6-23); Calcium 9.8 mg/dl (8.6-10.3); Carbon Dioxide 24 mmol/L (21-32); Chloride 89 mmol/L (98-107); Glucose 540 mg/dl (70-99(Fasting)); Potassium 4.5 mmol/L (3.5-5.1); Sodium 126 mmol/L (136-145); Total Protein 8.1 gm/dl (6.0-8.3)
[2024-05-23] MEDS: SODIUM CHLORIDE 0.9% 1,000 ML IV ONE (13:24)
--- NOTE | 2024-05-23 14:17 | CT Scan Report ---
CT head/brain wo con CLINICAL HISTORY: difficulty walking. TECHNIQUE: Multiple axial CT images of the head were obtained without contrast. Sagittal and coronal reconstructions were done. A dose lowering technique was utilized adhering to the principles of ALARA . CT DOSE: 625.8 mGy.cm COMPARISON: None FINDINGS: There is a cavum vergea present. There is also some focal asymmetry with posterior parietal cortical atrophy. There is some tenting of the tentorial margin and enlarging the CSF space over the superior cerebellum. The sella turcica is enlarged with depression of the floor on the left side suspicious for a pituitar y adenoma. There is no intra-axial or extra-axial hemorrhage. There is no midline shift. IMPRESSION: Findings suspicious for pituitary adenoma. Consider elective MRI and endocrine evaluation . While the left side of the pituitary gland is enlarged, there is no suprasellar extension that woul d result in visual changes. Cavum Verga, focal posterior parietal cortical atrophy, and tenting of the tentorium likely to be ins ignificant developmental variations. ACT 112: Negative or not required by law. The above report was generated using voice recognition software. It may contain grammatical, syntax o r spelling errors. Electronically signed by: Noreen Pineda M.D. 05/23/2024 2:15 PM
[2024-05-23] MEDS ORDERED: GLUCOSE 40% GEL 15 GM TUBE PO PRN (14:21)
[2024-05-23] MEDS ORDERED: GLUCAGON FOR INJ 1 MG VIAL SQ PRN (14:21)
[2024-05-23] MEDS ORDERED: DEXTROSE 50% 50 ML SYRINGE IV PRN (14:21)
[2024-05-23] MEDS ORDERED: GLUCOSE 10 TAB/TUBE PO PRN (14:21)
[2024-05-23] MEDS ORDERED: CARBOHYDRATES FOR HYPOGLYCEMIA PO PRN (14:21)
[2024-05-23] MEDS ORDERED: STAT IV Infusion **Titration per Protocol STA (14:21)
--- NOTE | 2024-05-23 15:11 | Emergency Department Note ---
History of Present Illness General Chief complaint: Illness Stated complaint: DOUBLE VIS, ARMS/LEGS TINGLING/NUMB, UNBALANCED Time Seen by Provider: 05/23/24 13:06 History of Present Illness Provider complaint: Vision changing difficulty walking and moving arms and legs Maximum Pain Intensity: 6 49-year-old male presents to the emergency department for vision changes as well as difficulty walking and moving his arms and legs. Patient reports his symptoms began approximately 1 month ago when he started noticing blurry vision. He states over last 3 days he has been noticing some difficulty walking and difficulty controlling his arms and legs. He states he feels like his fine motor skills have been compromised as he is grossly able to move his arms and legs but he is having difficulty with task such as holding a pen or reaching for a cup. Patient reports no falls or traumas. No blood thinners. Patient reports he is a prediabetic. Home Medications Medication Instructions Recorded Confirmed Type ibuprofen 200 mg tablet (Advil) 200 mg PO Q6H PRN Pain 05/23/24 05/23/24 History Allergies Allergy/AdvReac Type Severity Reaction Status Date / Time No Known Allergies Allergy Verified 05/23/24 14:52 Past Med/Surg History Problem List (Updated 05/23/24 @ 15:14 by Williams Viramontes MD) DKA (diabetic ketoacidosis) (Acute) Hypertension Dehiscence of laparotomy wound (Acute) Morbid obesity Dyspepsia Medical History Morbid obesity with BMI of 50.0-59.9, adult Anxiety Hypertension controlled, stable per pt Hypertensive urgency Perforated abdominal viscus HX 01/2015 Pneumoperitoneum HX 01/2021 Bowel obstruction HX 01/2021 Ruptured appendicitis HX 1999 Surgical History History of arthroscopy RIGHT KNEE History of laparotomy History of bowel resection WITH COLOSTOMY 02/14/2021: Grade 2 view, MAC#4, ETT#8.0 atraumatic x 1 + TAP. No post-op issues per anesthesia progress note. S/P appendectomy 1999 Family History Grandfather (Paternal) Family hx of colon cancer Social History Smoking Status: Former smoker Tobacco Type: Cigarettes Cigarettes Per Day: 1-2 CIGS A WEEK; Second Hand Exposure: No; Do You Dip or Chew Tobacco: No; Hx Alcohol Use: Yes Alcohol type: beer and wine Hx Substance Use: No Preferred Language: Grenadian Communication Ability: Effective Seat Cover Installer Required: No Beliefs That Will Affect Care: None marital status: Current Living Situation: Spouse current occupational status: employed current occupation: [employer] Feels Safe at Home: Yes Assistive Devices: None Physical Exam Vital Signs Vital Signs - 24 hr 05/23/24 11:47 05/23/24 13:10 Temperature 36 C L Temperature Source Temporal Artery Scan Pulse Rate 115 H 109 H Respiratory Rate 20 Respiratory Effort / Characteristics Non-Labored Spontaneous SOB on Exertion Respiratory Depth Normal Respiratory Pattern Regular Blood Pressure 179/89 H Blood Pressure Mean 119 Pulse Oximetry 92 Oxygen Delivery Method Room Air Sepsis Recent Fever Within 48 Hours No Sepsis New/Unexplained Change in Mental Status No Sepsis Action Taken by Nursing No Action Required Physical Exam HENT: Exam performed. - Head: Normocephalic and atraumatic. CV: Normal rate, regular rhythm, normal heart sounds and intact distal pulses. There is no peripheral edema. Palpable radial pulses bue. PULM/CHEST: Effort normal and breath sounds normal. No respiratory distress. No stridor. He has no wheezes. He has no rales. ABD: The abdomen is soft. Morbidly obese. Ostomy present. There is no tenderness. There is no rebound, no guarding NEURO: He is alert and oriented to person, place, and time. He has normal strength. No cranial nerve deficit or sensory deficit. Course Course 1306: The patient was evaluated in room B8. A complete history and physical exam was performed Cardiac monitoring: An order was placed for continuous cardiac monitoring. The monitor shows a rate of 110 with sinus tachycardia rhythm interpreted by me 1425: Vital signs stable. Labs show hyperglycemia with blood sugar greater than 500 and anion gap of 13. Patient be started on insulin drip for DKA. Patient be started at a dose of 10 units/h CT head with no bolus given he is insulin catrachito. CT of the head shows no stroke but does show possible pituitary adenoma. Discussed case with Dr. Waters [facility] hospitalist who will admit the patient and order MRI for the pituitary adenoma. Administered Medications Discontinued Medications Sodium Chloride (Nss) 1,000 mls @ 999 mls/hr IV .Q1H1M ONE Stop: 05/23/24 14:19 Last Admin: 05/23/24 13:24 Dose: 999 mls/hr Documented By: LYLA Critical Care Time Critical Care Time: Yes Total Critical Care Time: 47 I have personally spent greater than 47 minutes of critical care time in the direct management of this patient. This includes bedside care, interpretation of diagnostic studies, and testing, discussion with consultants, patient, and family members, and other required patient management activities. This 47 minutes is in excess of all separately billable procedures. Medical Decision Making Laboratory Data Attestation: I reviewed the patient's lab results. 05/23/24 12:08 05/23/24 12:08 Lab Results 05/23/24 05/23/24 05/23/24 Range/Units 11:54 12:00 12:08 WBC 9.11 (4.8-10.8) K/ul RBC 5.55 (4.70-6.10) M/uL Hgb 16.2 (14.0-18.0) g/dl Hct 43.7 (42.0-52.0) % MCV 78.7 L (80.0-100.0) fL MCH 29.2 (25.0-34.0) pg MCHC 37.1 H (32.0-36.0) g/dL RDW Std Deviation 42.7 (36.4-46.3) fL RDW Coeff of Ena 15.2 H (11.5-14.5) % Plt Count 209 (130-400) K/uL MPV 9.9 (9.4-12.4) fL Immature Gran % (Auto) 0.4 % Neut % (Auto) 67.9 % Lymph % (Auto) 22.1 % [place] % (Auto) 7.8 % Eos % (Auto) 1.1 % Baso % (Auto) 0.7 % Neut # (Auto) 6.19 (1.40-6.50) K/uL Lymph # (Auto) 2.01 (1.20-3.40) K/uL [place] # (Auto) 0.71 H (0.11-0.59) K/uL Eos # (Auto) 0.10 (0.00-0.50) K/uL Baso # (Auto) 0.06 (0.00-0.20) K/uL Immature Gran # (Auto) 0.04 (0.01-0.20) K/uL Sodium 126 L (136-145) mmol/L Potassium 4.5 (3.5-5.1) mmol/L Chloride 89 L (98-107) mmol/L Carbon Dioxide 24 (21-32) mmol/L Anion Gap 13 H (3-11) BUN 22 (6-23) mg/dl Creatinine 1.25 (0.6-1.4) mg/dl Est Cr Clr Drug Dosing Not Reportable eGFR 71.47 BUN/Creatinine Ratio 17.6 (10-20) Glucose 540 H* (70-99(Fasting)) mg/dl POC Glucose 514 H* (70-99) mg/dl Calcium 9.8 (8.6-10.3) mg/dl Total Bilirubin 1.1 H (0.2-1.0) mg/dl AST 71 H (13-39) U/L ALT 103 H (7-52) U/L Alkaline Phosphatase 112 H (34-104) U/L Total Protein 8.1 (6.0-8.3) gm/dl Albumin 4.1 (3.4-5.0) gm/dl Globulin 4.0 (2.5-4.0) gm/dl Albumin/Globulin Ratio 1.0 (0.9-2) Urine Color Yellow Urine Appearance Clear (Clear) Urine pH 5.5 (4.5-7.5) Ur Specific [place] 1.038 H (1.000-1.030) Urine Protein Negative (Negative) Urine Glucose (UA) 3+ H (Negative) Urine Ketones 1+ H (Negative) Urine Blood Negative (Negative) Urine Nitrite Negative (Negative) Urine Bilirubin Negative (Negative) Urine Urobilinogen Negative (Negative) Ur Leukocyte Esterase Negative (Negative) 05/23/24 Range/Units 14:10 WBC (4.8-10.8) K/ul RBC (4.70-6.10) M/uL Hgb (14.0-18.0) g/dl Hct (42.0-52.0) % MCV (80.0-100.0) fL MCH (25.0-34.0) pg MCHC (32.0-36.0) g/dL RDW Std Deviation (36.4-46.3) fL RDW Coeff of Ena (11.5-14.5) % Plt Count (130-400) K/uL MPV (9.4-12.4) fL Immature Gran % (Auto) % Neut % (Auto) % Lymph % (Auto) % [place] % (Auto) % Eos % (Auto) % Baso % (Auto) % Neut # (Auto) (1.40-6.50) K/uL Lymph # (Auto) (1.20-3.40) K/uL [place] # (Auto) (0.11-0.59) K/uL Eos # (Auto) (0.00-0.50) K/uL Baso # (Auto) (0.00-0.20) K/uL Immature Gran # (Auto) (0.01-0.20) K/uL Sodium (136-145) mmol/L Potassium (3.5-5.1) mmol/L Chloride (98-107) mmol/L Carbon Dioxide (21-32) mmol/L Anion Gap (3-11) BUN (6-23) mg/dl Creatinine (0.6-1.4) mg/dl Est Cr Clr Drug Dosing eGFR BUN/Creatinine Ratio (10-20) Glucose (70-99(Fasting)) mg/dl POC Glucose 516 H* (70-99) mg/dl Calcium (8.6-10.3) mg/dl Total Bilirubin (0.2-1.0) mg/dl AST (13-39) U/L ALT (7-52) U/L Alkaline Phosphatase (34-104) U/L Total Protein (6.0-8.3) gm/dl Albumin (3.4-5.0) gm/dl Globulin (2.5-4.0) gm/dl Albumin/Globulin Ratio (0.9-2) Urine Color Urine Appearance (Clear) Urine pH (4.5-7.5) Ur Specific [place] (1.000-1.030) Urine Protein (Negative) Urine Glucose (UA) (Negative) Urine Ketones (Negative) Urine Blood (Negative) Urine Nitrite (Negative) Urine Bilirubin (Negative) Urine Urobilinogen (Negative) Ur Leukocyte Esterase (Negative) Imaging Data Radiologist's Impression: Head CT 05/23/24 13:19 CT head/brain wo con CLINICAL HISTORY: difficulty walking. TECHNIQUE: Multiple axial CT images of the head were obtained without contrast. Sagittal and coronal reconstructions were done. A dose lowering technique was utilized adhering to the principles of ALARA. CT DOSE: 625.8 mGy.cm COMPARISON: None FINDINGS: There is a cavum vergea present. There is also some focal asymmetry with posterior parietal cortical atrophy. There is some tenting of the tentorial margin and enlarging the CSF space over the superior cerebellum. The sella turcica is enlarged with depression of the floor on the left side suspicious for a pituitary adenoma. There is no intra-axial or extra-axial hemorrhage. There is no midline shift. IMPRESSION: Findings suspicious for pituitary adenoma. Consider elective MRI and endocrine evaluation. While the left side of the pituitary gland is enlarged, there is no suprasellar extension that would result in visual changes. Cavum Verga, focal posterior parietal cortical atrophy, and tenting of the tentorium likely to be insignificant developmental variations. ACT 112: Negative or not required by law. The above report was generated using voice recognition software. It may contain grammatical, syntax or spelling errors. Electronically signed by: Noreen Pineda M.D. 05/23/2024 2:15 PM [facility] Narrative 1306: The patient was evaluated in room B8. A complete history and physical exam was performed Cardiac monitoring: An order was placed for continuous cardiac monitoring. The monitor shows a rate of 110 with sinus tachycardia rhythm interpreted by me 1425: Vital signs stable. Labs show hyperglycemia with blood sugar greater than 500 and anion gap of 13. Patient be started on insulin drip for DKA. Patient be started at a dose of 10 units/h CT head with no bolus given he is insulin catrachito. CT of the head shows no stroke but does show possible pituitary adenoma. Discussed case with Dr. Waters [facility] hospitalist who will admit the patient and order MRI for the pituitary adenoma. Impression & Plan DKA (diabetic ketoacidosis) Discharge Plan Visit Data Chief Complaint: Illness Stated Complaint: DOUBLE VIS, ARMS/LEGS TINGLING/NUMB, UNBALANCED ED Provider: Williams Viramontes Discharge Problem: DKA (diabetic ketoacidosis) Patient Disposition: Admitted As Inpatient Forms Stand Alone Forms: [facility] Prescriptions Prescriptions: No Action ibuprofen [Advil] 200 mg Tablet 200 mg PO Q6H PRN (Reason: Pain) Referrals Referrals: Shahida Sibley MD [Primary Care Provider] - Discharge Problem: DKA (diabetic ketoacidosis) Qualifiers: Diabetes mellitus type: other specified (including YAMIL) Diabetes mellitus complication detail: without coma Qualified Code(s): E13.10 - Other specified diabetes mellitus with ketoacidosis without coma
[2024-05-23] MEDS: INSULIN REGULAR 250 UNITS in SODIUM CHLORIDE 0.9% 247.5 ML IV SCH (15:19)
[2024-05-23] MEDS: NSS + 20MEQ KCL 20 MEQ/1,000 ML BAG IV SCH (15:19)
--- NOTE | 2024-05-23 15:35 | History & Physical Report ---
Date of Service May 23, 2024 Assessment & Plan (1) Hyperosmolar hyperglycemic state (HHS): Plan: New onset diabetes Mild anion gap, normal bicarb and normal pH therefore this is not DKA Will continue insulin drip started in the emergency room until anion gap closes and glucose closer to 300 Switch to basal bolus dosing following this with dosing depending on how much insulin IV he is requiring HbA1c pending (2) Monocular diplopia of both eyes: Plan: Suspect related to his elevated glucose levels and uncontrolled diabetes Recommend following up with ophthalmology on discharge (3) Abnormal CT scan, head: Plan: Unable to fit in MRI here. Recommend following this up as an outpatient. Discussed with endocrinology and recommended getting MRI prior to any pituitary testing to confirm adenoma diagnosis. Not suspected to be large enough to cause diplopia and diplopia is monocular regardless. (4) Coordination impairment: Plan: Suspect most likely due to uncontrolled diabetes. Ideally we will get brain MRI to rule out stroke although this diagnosis much less likely and unable to get brain MRI as an inpatient. Continue to monitor as his diabetes is treated. (5) Hyponatremia: Plan: Lizet corrected sodium 137, will improve with glucose control (6) Elevated transaminase level: Plan: Consider follow-up with gastroenterology for assessment of ALCALA Repeat levels in a.m. Unremarkable liver seen on CT in December Plan VTE prophylaxis - low risk given short duration and ambulatory status Diet - type 2 diabetes Disposition - admit to med/tele Admission and Anticipated Discharge Date Admission Date: May 23, 2024 History of Present Illness Chief Complaint: Diplopia Loss of coordination Primary Care Provider: Shahida Sibley MD Jian Lopez is a 49-year-old male who presents to the ER with double vision, generalized fatigue, loss of coordination and fine motor functions. He has had 2 months of double vision intermittently. 2 days ago he woke up and felt different in his arms and legs, not steady with lack of fine motor functions. His double vision came back at that time and has now been more constant. His generalized fatigue has been ongoing for 6 months. He has had approximately 3 months of polydipsia and polyuria. Pedal edema ongoing for the last 3 months. No chest pain, cough, nasal congestion, urinary symptoms, gastrointestinal symptoms. He has chronic shortness of breath on exertion since his diverticulitis herndon rgeries resulting in eventual right-sided colostomy after prior failed colostomies and reversals resulting in multiple hernias. He feels that shortness of breath is mostly at baseline. Allergies Allergy/AdvReac Type Severity Reaction Status Date / Time No Known Allergies Allergy Verified 05/23/24 14:52 Home Medications Medication Instructions Recorded Confirmed Type ibuprofen 200 mg tablet (Advil) 200 mg PO Q6H PRN Pain 05/23/24 05/23/24 History Past Med/Surg History Problem List (Updated 05/24/24 @ 00:17 by Timmy Waters MD) Coordination impairment Elevated transaminase level Hyponatremia Hyperosmolar hyperglycemic state (HHS) Abnormal CT scan, head Monocular diplopia of both eyes DKA (diabetic ketoacidosis) (Acute) Hypertension Dehiscence of laparotomy wound (Acute) Morbid obesity Dyspepsia Medical History Morbid obesity with BMI of 50.0-59.9, adult Anxiety Hypertension controlled, stable per pt Hypertensive urgency Perforated abdominal viscus HX 01/2015 Pneumoperitoneum HX 01/2021 Bowel obstruction HX 01/2021 Ruptured appendicitis HX 1999 Surgical History History of arthroscopy RIGHT KNEE History of laparotomy History of bowel resection WITH COLOSTOMY 02/14/2021: Grade 2 view, MAC#4, ETT#8.0 atraumatic x 1 + TAP. No post-op issues per anesthesia progress note. S/P appendectomy 1999 Family History Grandfather (Paternal) Family hx of colon cancer Social History Smoking Status: Former smoker Tobacco Type: Cigarettes Cigarettes Per Day: 1-2 CIGS A WEEK; Second Hand Exposure: No; Do You Dip or Chew Tobacco: No; Hx Alcohol Use: Yes Alcohol type: beer and wine Hx Substance Use: No Preferred Language: Mongolian Communication Ability: Effective Police Detention Attendant Required: No Beliefs That Will Affect Care: None marital status: Current Living Situation: Spouse current occupational status: employed current occupation: [employer] Feels Safe at Home: Yes Assistive Devices: None Review of Systems Review of Systems: All systems reviewed & are unremarkable except as noted in HPI & below Physical Exam Constitutional: well developed and + morbidly obese; + not well nourished and no acute distress Eyes: PERRL, conjunctivae normal, anicteric sclerae EOM intact bilaterally Bilateral monocular diplopia ENMT: external ear and nose normal, oropharynx normal Respiratory: normal respiratory effort, lungs clear to auscultation Cardiovascular: Rate/Rhythm: regular rhythm and + tachycardic Heart Sounds: no murmur Extremities: normal capillary refill and + pedal edema; no calf tenderness Gastrointestinal (Abdomen): normal bowel sounds, soft, nontender, no hepatosplenomegaly Musculoskeletal: no cyanosis or clubbing, extremities motor strength 5/5 Skin: no rashes, warm and dry Neurologic: moves all extremities and awake; not confused Speech / Cognition: normal speech Motor/Sensory: no tremor and no pronator drift Cranial Nerves: PERRL, EOM intact bilaterally, normal facial strength, tongue midline, able to rotate head bilaterally, able to elevate shoulders bilaterally, no nystagmus and symmetric palate elevation Psychiatric: A+Ox3, euthymic affect Results & Data Results & Data Vital Signs (Past 12 Hours) Vital Signs Temp Pulse Resp BP Pulse Ox O2 Del Method 05/23/24 13:10 109 H 05/23/24 11:47 36 C L 115 H 20 179/89 H 92 Room Air Laboratory Results Abnormal lab results 05/23/24 05/23/24 05/23/24 Range/Units 11:54 12:00 12:08 MCV 78.7 L (80.0-100.0) fL MCHC 37.1 H (32.0-36.0) g/dL RDW Coeff of Ena 15.2 H (11.5-14.5) % [place] # (Auto) 0.71 H (0.11-0.59) K/uL Sodium 126 L (136-145) mmol/L Chloride 89 L (98-107) mmol/L Anion Gap 13 H (3-11) Glucose 540 H* (70-99(Fasting)) mg/dl POC Glucose 514 H* (70-99) mg/dl Total Bilirubin 1.1 H (0.2-1.0) mg/dl AST 71 H (13-39) U/L ALT 103 H (7-52) U/L Alkaline Phosphatase 112 H (34-104) U/L Ur Specific [place] 1.038 H (1.000-1.030) Urine Glucose (UA) 3+ H (Negative) Urine Ketones 1+ H (Negative) 05/23/24 Range/Units 14:10 MCV (80.0-100.0) fL MCHC (32.0-36.0) g/dL RDW Coeff of Ena (11.5-14.5) % [place] # (Auto) (0.11-0.59) K/uL Sodium (136-145) mmol/L Chloride (98-107) mmol/L Anion Gap (3-11) Glucose (70-99(Fasting)) mg/dl POC Glucose 516 H* (70-99) mg/dl Total Bilirubin (0.2-1.0) mg/dl AST (13-39) U/L ALT (7-52) U/L Alkaline Phosphatase (34-104) U/L Ur Specific [place] (1.000-1.030) Urine Glucose (UA) (Negative) Urine Ketones (Negative) Diagnostic Findings CT head/brain wo con CLINICAL HISTORY: difficulty walking. TECHNIQUE: Multiple axial CT images of the head were obtained without contrast. Sagittal and coronal reconstructions were done. A dose lowering technique was utilized adhering to the principles of ALARA. CT DOSE: 625.8 mGy.cm COMPARISON: None FINDINGS: There is a cavum vergea present. There is also some focal asymmetry with posterior parietal cortical atrophy. There is some tenting of the tentorial margin and enlarging the CSF space over the superior cerebellum. The sella turcica is enlarged with depression of the floor on the left side suspicious for a pituitary adenoma. There is no intra-axial or extra-axial hemorrhage. There is no midline shift. IMPRESSION: Findings suspicious for pituitary adenoma. Consider elective MRI and endocrine evaluation. While the left side of the pituitary gland is enlarged, there is no suprasellar extension that would result in visual changes. Cavum Verga, focal posterior parietal cortical atrophy, and tenting of the tentorium likely to be insignificant developmental variations. Medications Administered ER medications given: Normal saline 1 L bolus Potassium chloride 20 mEq in NSS at 125 mL an hour ECG Rate (beats per minute): 111 Rhythm: sinus tachycardia Findings: + left axis deviation Comparison ECG Date: no prior available Code Status & VTE Plan Code Status Full VTE Prophylaxis Plan VTE Prophylaxis will be ordered: No PG Care Time/CCT Total # of Minutes Spent Total Time Spent with Patient: Total time spent is greater than 50% in coordination of care (as documented) at patient's floor/unit and/or counseling patient: Coding Level of Care Code 62064 INT INP/OBS CARE 3/75MIN Diagnoses Hyperosmolar hyperglycemic state (HHS) E11.00 Monocular diplopia of both eyes H53.[address] scan, head R93.0 Coordination impairment R27.8 Hyponatremia E87.1 Elevated transaminase level R74.01
[2024-05-23] MEDS: INSULIN ASPART PER UNIT CHARGE SC SCH (15:55)
[2024-05-23 16:09] LABS: Base Excess VBG 2.8 mEq/L; HCO3 VBG 27 mmol/L; Oxygen Saturation VBG 90.1 %; PCO2 VBG 40 mmHg (38-50); PO2 VBG 56 mmHg; pH VBG 7.44 (7.36-7.41)
[2024-05-23 16:14] LABS: Basophils # (auto) 0.05 K/uL (0.00-0.20); Basophils % (auto) 0.6 %; Eosinophils # (auto) 0.08 K/uL (0.00-0.50); Eosinophils % (auto) 0.9 %; Hematocrit (blood only) 42.2 % (42.0-52.0); Hemoglobin 15.1 g/dl (14.0-18.0); Immature Granulocytes # (auto) 0.05 K/uL (0.01-0.20); Immature Granulocytes % (auto) 0.6 %; Lymphocytes # (auto) 2.08 K/uL (1.20-3.40); Lymphocytes % (auto) 23.8 %; Mean Corpuscular Hgb Conc 35.8 g/dL (32.0-36.0); Mean Corpuscular Volume 78.3 fL (80.0-100.0); Mean Platelet Volume 9.9 fL (9.4-12.4); Monocytes # (auto) 0.61 K/uL (0.11-0.59); Neutrophils # (auto) 5.86 K/uL (1.40-6.50); Neutrophils % (auto) 67.1 %; Platelet Count 194 K/uL (130-400); RDW Coefficient of Variation 15.2 % (11.5-14.5); RDW Standard Deviation 42.5 fL (36.4-46.3); Red Blood Count 5.39 M/uL (4.70-6.10); White Blood Count 8.73 K/ul (4.8-10.8)
[2024-05-23 16:29] LABS: Albumin Level 3.8 gm/dl (3.4-5.0); BUN Creatinine Ratio 17.5 (10-20); Calcium 9.2 mg/dl (8.6-10.3); Creatinine Clr Calc Pharmacy 151.7 ml/min; Globulin 3.7 gm/dl (2.5-4.0); Phosphorus 3.3 mg/dl (2.5-4.9); Potassium 4.5 mmol/L (3.5-5.1); Total Protein 7.5 gm/dl (6.0-8.3)
[2024-05-23 19:17] LABS: BUN Creatinine Ratio 18.7 (10-20); Calcium 9.4 mg/dl (8.6-10.3); Creatinine Clr Calc Pharmacy 161.6 ml/min; Phosphorus 2.8 mg/dl (2.5-4.9); Potassium 4.1 mmol/L (3.5-5.1)
[2024-05-23] MEDS ORDERED: PHARMACY GLYCEMIC MGMT CONSULT PRN (20:11)
[2024-05-23] MEDS ORDERED: LANTUS PER UNIT CHARGE SC ONE (20:30)
--- NOTE | 2024-05-23 20:41 | Pharmacy Report ---
Pharmacy Glycemic Short Note 2 - Date of Service May 23, 2024 - Glycemic Short BSG Results (Last 24 hours): 05/23/24 05/23/24 05/23/24 11:54 12:08 14:10 Glucose 540 H* POC Glucose 514 H* 516 H* 05/23/24 05/23/24 05/23/24 15:50 16:27 18:00 Glucose 460 H* POC Glucose 445 H* 366 H* 05/23/24 05/23/24 05/23/24 18:44 19:09 20:04 Glucose 328 H* POC Glucose 333 H* 285 H OUTPATIENT ANTIDIABETIC REGIMEN: * N/A HbA1c: pending ASSESSMENT: * [place] is a 49 year old male who presented to ED w/ generalized illness (including 6 months of generalized fatigue, polydipsia, polyuria, blurry/double vision, difficulty ambulating, and compromise of fine motor skills) * Blood sugar at time of presentation > 500 mg/dL, anion gap of 13, and carbon dioxide of 24 - insulin infusion initiated in ED * Pharmacy consulted at time of admission to transition off of insulin infusion since not truly a DKA picture/insulin naive patient * Blood sugars trended down nicely throughout today (514-> 285 mg/dL) * Patient with no prior diagnosis of diabetes, but w/ history of morbid obesity (BMI is > 60) * Will utilize adjusted body weight for initial insulin dosing given insulin naivety PLAN FOR INPATIENT GLYCEMIC CONTROL: * Overlap basal insulin/IV insulin infusion for ~3 hours * Stop insulin infusion at 0000 * Basal insulin * Lantus 25 units SC x 1 now * Reassess in AM * Bolus insulin * NovoLog per scale ACHS or Q6hrs while NPO w/ ,04 checks tonight * Goal Range: Low 110 mg/dL - High 140 mg/dL * Correction Factor: 15 mg/dL/unit * Nutritional / Prandial insulin per carb ratio of 1 unit per 5 grams CHO consumed
[2024-05-23] MEDS: LANTUS PER UNIT CHARGE SC STA (21:34)
[2024-05-24] MEDS: STOP ORDER: INSULIN INFUSION ONE (00:47)
[2024-05-24] MEDS: LACTATED RINGER'S 1,000 ML IV SCH (00:49)
[2024-05-24] MEDS: INSULIN ASPART PER UNIT CHARGE SC SCH ×2 (01:53→09:49)
[2024-05-24 06:10] LABS: Basophils # (auto) 0.05 K/uL (0.00-0.20); Basophils % (auto) 0.6 %; Eosinophils # (auto) 0.18 K/uL (0.00-0.50); Eosinophils % (auto) 2.1 %; Hematocrit (blood only) 41.5 % (42.0-52.0); Hemoglobin 14.5 g/dl (14.0-18.0); Immature Granulocytes # (auto) 0.03 K/uL (0.01-0.20); Immature Granulocytes % (auto) 0.3 %; Lymphocytes # (auto) 2.17 K/uL (1.20-3.40); Lymphocytes % (auto) 25.1 %; Mean Corpuscular Hemoglobin 28.3 pg (25.0-34.0); Mean Corpuscular Hgb Conc 34.9 g/dL (32.0-36.0); Mean Corpuscular Volume 80.9 fL (80.0-100.0); Monocytes # (auto) 0.74 K/uL (0.11-0.59); Monocytes % (auto) 8.6 %; Neutrophils # (auto) 5.47 K/uL (1.40-6.50); Neutrophils % (auto) 63.3 %; Platelet Count 176 K/uL (130-400); RDW Coefficient of Variation 15.4 % (11.5-14.5); RDW Standard Deviation 45.2 fL (36.4-46.3); Red Blood Count 5.13 M/uL (4.70-6.10); White Blood Count 8.64 K/ul (4.8-10.8)
[2024-05-24 06:40] LABS: Albumin Globulin Ratio 1.2 (0.9-2); Albumin Level 3.7 gm/dl (3.4-5.0); BUN Creatinine Ratio 18.8 (10-20); Bilirubin,Total 0.8 mg/dl (0.2-1.0); Calcium 8.7 mg/dl (8.6-10.3); Creatinine Clr Calc Pharmacy 180.1 ml/min; Globulin 3.2 gm/dl (2.5-4.0); Magnesium 1.9 mg/dl (1.7-2.4); Phosphorus 2.8 mg/dl (2.5-4.9); Potassium 3.8 mmol/L (3.5-5.1); Total Protein 6.9 gm/dl (6.0-8.3)
[2024-05-24 09:08] LABS: Estimated Average Glucose 361 mg/dl; Hemoglobin A1C 14.2 % (4.5-5.6)
[2024-05-24] MEDS: LANTUS PER UNIT CHARGE SC ONE (09:49)
[2024-05-24] MEDS: INSULIN HUMAN REGULAR PER UNIT 10 UNITS in SYRINGE 9.9 ML IV ONE (12:25)
[2024-05-24] MEDS: SODIUM CHLORIDE 0.9% 1,000 ML IV ONE (12:29)
--- NOTE | 2024-05-24 15:22 | Pharmacy Report ---
Pharmacy Glycemic Short Note 2 - Date of Service May 24, 2024 - Glycemic Short BSG Results (Last 24 hours): 05/23/24 05/23/24 05/23/24 15:50 16:27 18:00 Glucose 460 H* POC Glucose 445 H* 366 H* 05/23/24 05/23/24 05/23/24 18:44 19:09 20:04 Glucose 328 H* POC Glucose 333 H* 285 H 05/23/24 05/23/24 05/24/24 21:27 22:41 00:50 Glucose POC Glucose 234 H 263 H 325 H* 05/24/24 05/24/24 05/24/24 01:41 04:12 05:35 Glucose 336 H* POC Glucose 363 H* 376 H* 05/24/24 05/24/24 05/24/24 07:26 11:38 13:03 Glucose POC Glucose 314 H* 374 H* 306 H* OUTPATIENT ANTIDIABETIC REGIMEN: * N/A HbA1c: 14.2% ASSESSMENT: 05/24: * Severe hyperglycemia continues. BSGs all > 300 mg/dL thus far today. * Regular insulin 10 unit IV bolus given with lunch. Novolog CF and CR were tightened (near weight/stress 3 based on adjusted body weight). * Will dose basal insulin per BSG scale until needs are better determined. With A1c of 14% and patient being insulin naive, do not want to overcorrect hyperglycemia. 05/23: * AZ is a 49 year old male who presented to ED w/ generalized illness (including 6 months of generalized fatigue, polydipsia, polyuria, blurry/double vision, difficulty ambulating, and compromise of fine motor skills) * Blood sugar at time of presentation > 500 mg/dL, anion gap of 13, and carbon dioxide of 24 - insulin infusion initiated in ED * Pharmacy consulted at time of admission to transition off of insulin infusion since not truly a DKA picture/insulin naive patient * Blood sugars trended down nicely throughout today (514-> 285 mg/dL) * Patient with no prior diagnosis of diabetes, but w/ history of morbid obesity (BMI is > 60) * Will utilize adjusted body weight for initial insulin dosing given insulin naivety PLAN FOR INPATIENT GLYCEMIC CONTROL: * Basal insulin * Lantus 20-30 units SQ BID * Bolus insulin * NovoLog per scale ACHS or Q6hrs while NPO w/ ,04 checks tonight * Goal Range: Low 110 mg/dL - High 140 mg/dL * Correction Factor: 12 mg/dL/unit * Nutritional / Prandial insulin per carb ratio of 1 unit per 4 grams CHO consumed
--- NOTE | 2024-05-24 19:16 | Hospitalist Progress Note ---
Date of Service May 24, 2024 Assessment & Plan (1) Hyperosmolar hyperglycemic state (HHS): Plan: 49-year-old man with history of diverticulitis requiring colostomy in the past who presented with weeks of polydipsia polyuria blurred vision double vision discoordination with fine motor in his hands,/dysesthesia both lower extremities below the knees potentially his fingertips/hands. Admitted with new diagnosis of diabetes, blood glucose greater than 500, hyperosmolar hyperglycemic nonketotic state. he had pseudohyponatremia,Mild anion gap, normal bicarb and normal pH treated with IV fluids and IV insulin 05/23 converted to subcutaneous glargine and aspart last night, currently being managed by pharmacist with improvement in blood glucoses has been in the 300s today which is an appropriate goal at this point in time - one dose of IV insulin given today and ordered 1L saline bolus since he is still hypovolemic (only got 2L in ED) - continue working on slowly normalizing blood glucose with insulin - plan on insulin for discharge and additional agents can be added/insulin titrated down as outpatient chemistry panel today reviewed sodium 131, potassium 3.8, creatinine 0.96 and anion gap resolved HbA1c is 14 lease 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 Hernadez at [facility]. He has had regular clinic visits and some active medical problems this year, we do not have records of this. I spoke with the [facility] hospitalist team who graciously agreed to assume care tomorrow morning. This will allow for better coordination of care which will be essential for a new diabetic. Will defer this to the [facility] team but endocrinology follow-up may be useful for the diabetes and potential pituitary adenoma (2) Monocular diplopia of both eyes: Plan: diplopia and blurry vision suspect related to his elevated glucose levels and uncontrolled diabetes it may take some time to see improvement as he is having rapid glucose shifts currently doubt this is stroke related or demyelinating disease however cannot obtain MRI here, will need to be done as outpatient Recommend following up with ophthalmology on discharge for evaluation, diabetic eye care (3) Abnormal CT scan, head: Plan: Unable to fit in MRI here. Recommend following this up as an outpatient. Discussed with endocrinology at time of admission and recommended getting MRI prior to any pituitary testing to confirm adenoma diagnosis. Not suspected to be large enough to cause diplopia (4) Coordination impairment: Plan: Suspect most likely due to uncontrolled diabetes. Ideally we will get brain MRI to rule out stroke although this diagnosis much less likely and unable to get brain MRI as an inpatient. Continue to monitor as his diabetes is treated. I think this may be some diabetic neuropathy as he does have this in his lower extremities below his knees which started over the last several weeks it is relatively acute so it is possible that it will reverse with glycemic control (5) Hyponatremia: Plan: pseudohyponatremia related to severe hyperglycemia Lizet corrected sodium 137 on admission Today's sodium corrects to 135 (6) Elevated transaminase level: Plan: Morbid obesiity, BMI 62 Likely has MAFLD Repeat levels today are stable Unremarkable liver seen on CT in December Consider GI referral to evaluate for MASH as there are new therapies available He would benefit from GLP-1 eventually with respect to the diabetes, morbid obesity, and MAFLD Plan VTE prophylaxis - enoxaparin bid ordered Admission and Anticipated Discharge Date Admission Date: May 23, 2024 Subjective he is feeling fatigued today, continues to have some blurriness of his vision but it is not improved yet and he has had some discoordination of both his hands left greater than right though he is right-handed that may be slightly better today. he has had bilateral lower extremity numbness below his knees went on for several weeks Physical Exam 2 Physical Exam: PHYSICAL EXAMINATION Last 24h vital signs reviewed, see documentation in flowsheet General: comfortable appearing, no distress, sitting up on the edge of the bed in the ED HEENT: Normocephalic, atraumatic, pupils round and equal, sclerae anicteric, no conjunctival injection, moist mucus membranes Lungs: Normal respiratory effort. Clear to auscultation bilaterally. No RRW Heart: Regular rate and rhythm, no murmurs. No JVD Abdomen: Soft, nontender, nondistended. Bowel sounds present. Extremities: Warm, dry, well-perfused. 2+ lower extremity edema / woody, lymphedema and venous stasis edema. Neuro: Alert and oriented x 4, face symmetric, moves 4 extremities well Psych: Normal affect and behavior Results & Data Results & Data Vital Signs (Past 12 Hours) Vital Signs Temp Pulse Pulse Resp BP Pulse Ox O2 Del Method 05/24/24 14:23 98.2 F 92 H 20 128/74 95 Room Air 05/24/24 12:00 97 H 19 165/95 H 95 Room Air 05/24/24 07:56 88 05/24/24 07:27 90 19 158/112 H 92 Room Air Laboratory Results 05/24/24 05:35 05/24/24 05:35 PG Care Time/CCT Total # of Minutes Spent Total Time Spent with Patient: Total time spent is greater than 50% in coordination of care (as documented) at patient's floor/unit and/or counseling patient: Coding Level of Care Code 83764 SUB INP/OBS CARE 3/50MIN Diagnoses Hyperosmolar hyperglycemic state (HHS) E11.00 Monocular diplopia of both eyes H53.[address] scan, head R93.0 Coordination impairment R27.8 Hyponatremia E87.1 Elevated transaminase level R74.01
[2024-05-24] MEDS: ENOXAPARIN INJ 40 MG/0.4 ML SYR SQ SCH (20:30)
[2024-05-24] MEDS: LANTUS PER UNIT CHARGE SC SCH (20:39)
[2024-05-25] MEDS: INSULIN ASPART PER UNIT CHARGE SC SCH (00:16)
[2024-05-25 07:44] LABS: BUN Creatinine Ratio 14.6 (10-20); Calcium 8.7 mg/dl (8.6-10.3); Creatinine Clr Calc Pharmacy 201.8 ml/min; Potassium 3.9 mmol/L (3.5-5.1)
--- NOTE | 2024-05-25 08:01 | Hospitalist Progress Note ---
Date of Service May 25, 2024 Assessment & Plan (1) Hyperosmolar hyperglycemic state (HHS): Plan Pt is a 49yoM with PMhx significant for history of diverticulitis requiring colostomy in the past currently being treated for HHS in the setting of a new diagnosis of diabetes mellitus. 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 Consider endocrinology follow up Improving Hyponatremia Pseudohyponatremia in setting of hyperglycemia noted above Improving Continue to monitor Elevated Liver Enzymes Liver enzymes elevated US liver ordered and pending Possible Pituitary Adenoma Coordination Impairment Visual Changes Pituitary adenoma noted on head CT, possibly enlarged on the left Recommended brain MRI- however pt unable to have it completed as he is unable to fit in the MRI machine here Per previous provider "...Discussed with endocrinology at time of admission and recommended getting MRI prior to any pituitary testing to confirm adenoma diagnosis. Not suspected to be large enough to cause diplopia..." Will need MRI as an outpt to rule out stroke, though considered less likely and uncontrolled DMII can account for his presenting symptoms Morbid Obesity BMI of 66 Encourage weight loss Consider use of GLP-1s given DM and obesity DVT prophylaxis: Lovenox SQ BID Diet: DMII Dispo: Home once medically stable Admission and Anticipated Discharge Date Admission Date: May 23, 2024 Subjective pt was seen with and children at bedside States that his symptoms were still present but much improved. Anxious for discharge but concerned about fluctuations in his glucose levels Review of Systems Review of Systems: All systems reviewed & are unremarkable except as noted in Subjective Physical Exam Physical Exam: General: Alert, oriented. No acute distress Psych: Appropriate mood and affect HEENT: NC/AT CV: RRR Resp: Breath sounds clear bilaterally, no increased effort of breathing Abdomen: Soft, nontender Extremities: Trace edema in lower extremities bilaterally. Results & Data Results & Data Vital Signs (Past 12 Hours) Vital Signs Temp Pulse Resp BP Pulse Ox O2 Del Method 05/25/24 06:54 37.2 C 103 H 16 151/81 H 98 Room Air 05/24/24 20:46 37.1 C 91 H 16 149/84 H 95 Room Air
[2024-05-25] MEDS: INFLUENZA VACC TS2024-25(6m+)/PF (IIV3) 0.5mL Syr IM ONE (13:13)
[2024-05-25] MEDS: PNEUMOCOCCAL VACCINE (PCV20) 20-VAL CONJ-DIP CRM/PF 0.5 ML SYR IM ONE (13:14)
[2024-05-25] MEDS: LANTUS PER UNIT CHARGE SC ONE (13:28)
--- NOTE | 2024-05-25 15:05 | Pharmacy Report ---
Pharmacy Glycemic Short Note 2 - Date of Service May 25, 2024 - Glycemic Short BSG Results (Last 24 hours): 05/24/24 05/24/24 05/24/24 16:21 16:22 20:28 Glucose POC Glucose 336 H* 339 H* 267 H 05/24/24 05/25/24 05/25/24 23:50 04:04 07:07 Glucose 266 H POC Glucose 263 H 238 H 05/25/24 05/25/24 05/25/24 07:34 11:28 11:29 Glucose POC Glucose 283 H 324 H* 299 H OUTPATIENT ANTIDIABETIC REGIMEN: * N/A HbA1c: 14.2% ASSESSMENT: 05/25: * Jian received 187 units of SQ insulin yesterday (60 units basal + 127 units bolus) * Making progress with glycemic control, however BSGs remain > 250 mg/dL. * Will tighten carb coverage and increase basal insulin by 10-33% (exact increase will depend on Lantus HS dose per BSG scale). 05/24: * Severe hyperglycemia continues. BSGs all > 300 mg/dL thus far today. * Regular insulin 10 unit IV bolus given with lunch. Novolog CF and CR were tightened (near weight/stress 3 based on adjusted body weight). * Will dose basal insulin per BSG scale until needs are better determined. With A1c of 14% and patient being insulin naive, do not want to overcorrect hyperglycemia. 05/23: * [place] is a 49 year old male who presented to ED w/ generalized illness (including 6 months of generalized fatigue, polydipsia, polyuria, blurry/double vision, difficulty ambulating, and compromise of fine motor skills) * Blood sugar at time of presentation > 500 mg/dL, anion gap of 13, and carbon dioxide of 24 - insulin infusion initiated in ED * Pharmacy consulted at time of admission to transition off of insulin infusion since not truly a DKA picture/insulin naive patient * Blood sugars trended down nicely throughout today (514-> 285 mg/dL) * Patient with no prior diagnosis of diabetes, but w/ history of morbid obesity (BMI is > 60) * Will utilize adjusted body weight for initial insulin dosing given insulin naivety PLAN FOR INPATIENT GLYCEMIC CONTROL: * Basal insulin * Lantus 30 units SQ with breakfast + 10 units with lunch * Start Lantus 25-40 units SQ BID (25 units for BSG < 160, 30 units for 160- 220, 40 units for > 220 mg/dL) * Bolus insulin * NovoLog per scale ACHS or Q6hrs while NPO , checks tonight * Goal Range: Low 110 mg/dL - High 140 mg/dL * Correction Factor: 10 mg/dL/unit * Nutritional / Prandial insulin per carb ratio of 1 unit per 3 grams CHO consumed
[2024-05-26] MEDS: INSULIN ASPART PER UNIT CHARGE SC SCH (00:11)
--- NOTE | 2024-05-26 07:05 | Ultrasound Report ---
EXAM: US liver CLINICAL HISTORY: Elevated liver enzymes. TECHNIQUE: An ultrasound examination of the RUQ was performed Scanning was performed with the patient in a supine position. COMPARISON: None available. FINDINGS: Limited examination due to increased body habitus, panic patient, and overlying bowel gases. Liver: Difficult to penetrate. Liver size: 27.8 cm. The liver appears enlarged with echogenic parenchyma. No evidence of focal lesions, cysts, or masses in the scanned liver. Hepatic vasculature appears normal. Gallbladder: The gallbladder is visualized and appears normal in size and shape. No gallstones, wall thickening, or pericholecystic fluid were noted. The GB wall measures 1.3 m. No evidence of gallbladder wall edema or signs of acute cholecystitis. Negative sonographic Maynard's sign. Biliary Tree: Common bile duct diameter: 3.2 mm. The common bile duct is within normal limits in caliber and not dilated. Pancreas Limited views due to gas. Unremarkable visualized part. Right Kidney: The right kidney appears normal in size with preserved corticomedullary differentiation. No evidence of hydronephrosis, renal cysts, or masses. IMPRESSION: 1. Limited study due to body habitus 2. Hepatomegaly with fatty changes. 3. No evidence of acute pathology. RECOMMENDATIONS: Clinical correlation with symptoms and further evaluation as indicated. Electronically signed by Jamal Hearn 05-26-2024 07:05 AM
[2024-05-26 07:42] LABS: Hematocrit (blood only) 41.2 % (42.0-52.0); Hemoglobin 14.2 g/dl (14.0-18.0); Mean Corpuscular Hemoglobin 28.5 pg (25.0-34.0); Mean Corpuscular Hgb Conc 34.5 g/dL (32.0-36.0); Mean Corpuscular Volume 82.6 fL (80.0-100.0); Mean Platelet Volume 9.9 fL (9.4-12.4); Platelet Count 143 K/uL (130-400); RDW Coefficient of Variation 15.5 % (11.5-14.5); RDW Standard Deviation 46.7 fL (36.4-46.3); Red Blood Count 4.99 M/uL (4.70-6.10); White Blood Count 6.01 K/ul (4.8-10.8)
[2024-05-26 09:27] LABS: Albumin Globulin Ratio 1.1 (0.9-2); Albumin Level 3.6 gm/dl (3.4-5.0); BUN Creatinine Ratio 13.3 (10-20); Bilirubin,Total 0.9 mg/dl (0.2-1.0); Calcium 8.6 mg/dl (8.6-10.3); Creatinine Clr Calc Pharmacy 199.5 ml/min; Globulin 3.2 gm/dl (2.5-4.0); Magnesium 1.9 mg/dl (1.7-2.4); Phosphorus 3.1 mg/dl (2.5-4.9); Potassium 3.7 mmol/L (3.5-5.1); Total Protein 6.8 gm/dl (6.0-8.3)
[2024-05-26] MEDS: LANTUS PER UNIT CHARGE SC ONE (13:38)
--- NOTE | 2024-05-26 17:34 | Hospitalist Progress Note ---
Date of Service May 26, 2024 Assessment & Plan (1) Hyperosmolar hyperglycemic state (HHS): Plan Pt is a 49yoM with PMhx significant for history of diverticulitis requiring colostomy in the past currently being treated for HHS in the setting of a new diagnosis of diabetes mellitus. 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 Consider endocrinology follow up Improving 05/26- pt anxious for discharge, however labile glucose readings. Agreeable to staying overnight for further discharge regimen planning. Hyponatremia Pseudohyponatremia in setting of hyperglycemia noted above Improving Continue to monitor Elevated Liver Enzymes Liver enzymes elevated US liver ordered and pending Possible Pituitary Adenoma Coordination Impairment Visual Changes Pituitary adenoma noted on head CT, possibly enlarged on the left Recommended brain MRI- however pt unable to have it completed as he is unable to fit in the MRI machine here Per previous provider "...Discussed with endocrinology at time of admission and recommended getting MRI prior to any pituitary testing to confirm adenoma diagnosis. Not suspected to be large enough to cause diplopia..." Will need MRI as an outpt to rule out stroke, though considered less likely and uncontrolled DMII can account for his presenting symptoms Morbid Obesity BMI of 66 Encourage weight loss Consider use of GLP-1s given DM and obesity DVT prophylaxis: Lovenox SQ BID Diet: DMII Dispo: Home once medically stable Admission and Anticipated Discharge Date Admission Date: May 23, 2024 Subjective pt was seen with his family at bedside Anxious for discharge Discussion of leaving AMA Later agreeable to staying. Review of Systems Review of Systems: All systems reviewed & are unremarkable except as noted in Subjective Physical Exam Physical Exam: General: Alert, oriented. No acute distress Psych: Appropriate mood and affect HEENT: NC/AT CV: RRR Resp: Breath sounds clear bilaterally, no increased effort of breathing Abdomen: Soft, nontender Extremities: Trace edema in lower extremities bilaterally. Results & Data Results & Data Vital Signs (Past 12 Hours) Vital Signs Temp Pulse Resp BP BP Pulse Ox O2 Del Method 05/26/24 14:42 36.5 C 81 18 147/89 H 94 Room Air 05/26/24 07:35 Room Air 05/26/24 06:57 36.6 C 81 18 150/78 H 98 Room Air
[2024-05-26 19:53] VITALS: RESP 16
[2024-05-27] MEDS: INSULIN ASPART PER UNIT CHARGE SC SCH (00:06)
[2024-05-27 06:21] LABS: Hematocrit (blood only) 43.5 % (42.0-52.0); Hemoglobin 14.8 g/dl (14.0-18.0); Mean Corpuscular Hemoglobin 28.6 pg (25.0-34.0); Mean Platelet Volume 9.5 fL (9.4-12.4); Platelet Count 159 K/uL (130-400); RDW Coefficient of Variation 15.4 % (11.5-14.5); RDW Standard Deviation 46.5 fL (36.4-46.3); Red Blood Count 5.18 M/uL (4.70-6.10)
[2024-05-27 06:22] LABS: Albumin Globulin Ratio 0.9 (0.9-2); Albumin Level 3.5 gm/dl (3.4-5.0); BUN Creatinine Ratio 12.9 (10-20); Bilirubin,Total 0.9 mg/dl (0.2-1.0); Calcium 8.4 mg/dl (8.6-10.3); Creatinine Clr Calc Pharmacy 192.7 ml/min; Globulin 3.7 gm/dl (2.5-4.0); Magnesium 1.9 mg/dl (1.7-2.4); Phosphorus 3.9 mg/dl (2.5-4.9); Potassium 4.1 mmol/L (3.5-5.1); Total Protein 7.2 gm/dl (6.0-8.3)
[2024-05-27 07:48] VITALS: TEMP 97.7; O2SAT 96
[2024-05-27] MEDS: LANTUS PER UNIT CHARGE SC SCH (09:00)
--- NOTE | 2024-05-27 12:20 | Discharge Summary ---
Discharge Summary Date of Service May 27, 2024 Principal Dx & Hospital Course #1 = Principal Diagnosis (1) Hyperosmolar hyperglycemic state (HHS): Plan Pt is a 49yoM with PMhx significant for history of diverticulitis requiring colostomy in the past currently being treated for HHS in the setting of a new diagnosis of diabetes mellitus. 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 Glycemic pharmacy and certified adaptive physical educator on board, recs appreciated. Pt was discharged with the following: "1.) Toujeo Max Solostar Pen 70U daily 2.) Pen Needle 32 gauge x 5/32- to injection 1x/day. 3.) Metformin ER. 4.) Contour Next Test Strips- to check 3x/day. 5.) Microlet Lancets- to check 3x/day." Will need close follow up with the Diabetic MTM program on discharge, ophthalmology. Consider endocrinology follow up as well for DM (see below needed for pituitary adenoma followup). Pt anxious for discharge. Glucose level 206 on the day of discharge. Hyponatremia Pseudohyponatremia in setting of hyperglycemia noted above Improved to 135 on the day of discharge PCP followup Elevated Liver Enzymes Liver enzymes elevated US liver noting steatosis Continue to monitor levels after discharge Possible Pituitary Adenoma Coordination Impairment Visual Changes Pituitary adenoma noted on head CT, possibly enlarged on the left Recommended brain MRI- however pt unable to have it completed as he is unable to fit in the MRI machine here Per previous provider "...Discussed with endocrinology at time of admission and recommended getting MRI prior to any pituitary testing to confirm adenoma diagnosis. Not suspected to be large enough to cause diplopia..." Will need MRI as an outpt to rule out stroke, though considered less likely and uncontrolled DMII can account for his presenting symptoms PCP and endocrinology followup after discharge Morbid Obesity BMI of 66 Encourage weight loss Consider use of GLP-1 for additional DM control given DM and obesity Notes For Next Care Provider As above Medication Changes From Visit 1.) Toujeo Max Solostar Pen 70U daily 2.) Pen Needle 32 gauge x 5/32- to injection 1x/day. 3.) Metformin ER. 4.) Contour Next Test Strips- to check 3x/day. 5.) Microlet Lancets- to check 3x/day. Admission HPI Per Admitting Provider Jian Lopez is a 49-year-old male who presents to the ER with double vision, generalized fatigue, loss of coordination and fine motor functions. He has had 2 months of double vision intermittently. 2 days ago he woke up and felt different in his arms and legs, not steady with lack of fine motor functions. His double vision came back at that time and has now been more constant. His generalized fatigue has been ongoing for 6 months. He has had approximately 3 months of polydipsia and polyuria. Pedal edema ongoing for the last 3 months. No chest pain, cough, nasal congestion, urinary symptoms, gastrointestinal symptoms. He has chronic shortness of breath on exertion since his diverticulitis surgeries resulting in eventual right-sided colostomy after prior failed colostomies and reversals resulting in multiple hernias. He feels that shortness of breath is mostly at baseline. Admission Exam Per Admitting Provider Constitutional: well developed and + morbidly obese; + not well nourished and no acute distress Eyes: PERRL, conjunctivae normal, anicteric sclerae EOM intact bilaterally Bilateral monocular diplopia ENMT: external ear and nose normal, oropharynx normal Respiratory: normal respiratory effort, lungs clear to auscultation Cardiovascular: Rate/Rhythm: regular rhythm and + tachycardic Heart Sounds: no murmur Extremities: normal capillary refill and + pedal edema; no calf tenderness Gastrointestinal (Abdomen): normal bowel sounds, soft, nontender, no hepatosplenomegaly Musculoskeletal: no cyanosis or clubbing, extremities motor strength 5/5 Skin: no rashes, warm and dry Neurologic: moves all extremities and awake; not confused Speech / Cognition: normal speech Motor/Sensory: no tremor and no pronator drift Cranial Nerves: PERRL, EOM intact bilaterally, normal facial strength, tongue midline, able to rotate head bilaterally, able to elevate shoulders bilaterally, no nystagmus and symmetric palate elevation Psychiatric: A+Ox3, euthymic affect Discharge Exam General: Alert, oriented. No acute distress Psych: Appropriate mood and affect HEENT: NC/AT CV: RRR Resp: Breath sounds clear bilaterally, no increased effort of breathing Abdomen: nontender, colostomy bag in place Extremities: Trace edema in lower extremities bilaterally. Updated Medication List Medication Instructions Recorded Confirmed Type ibuprofen 200 mg tablet (Advil) 200 mg PO Q6H PRN Pain 05/23/24 05/23/24 History blood sugar diagnostic (Contour #50 ea 05/27/24 Rx Next Test Strips) insulin glargine U-300 conc 300 70 unit (0.2333 mL) subcut DAILY 05/27/24 Rx unit/mL (3 mL) subcutaneous pen #6 mL (Toujeo Max U-300 SoloStar) lancets (Microlet Lancet) #100 ea 05/27/24 Rx metformin 500 mg tablet,extended 500 mg PO DAILY #30 tabs 05/27/24 Rx release 24 hr pen needle, diabetic 32 gauge x #50 ea 05/27/24 Rx 5/32" (Pen Needle) Hospital Stay Data Consultations 05/23/24 14:23 ED Decision to Admit Stat Diagnostic Imagining Performed 05/23/24 13:19 CT head/brain wo con Stat 05/26/24 US liver Urgent Head CT 05/23/24 13:19 CT head/brain wo con CLINICAL HISTORY: difficulty walking. TECHNIQUE: Multiple axial CT images of the head were obtained without contrast. Sagittal and coronal reconstructions were done. A dose lowering technique was utilized adhering to the principles of ALARA. CT DOSE: 625.8 mGy.cm COMPARISON: None FINDINGS: There is a cavum vergea present. There is also some focal asymmetry with posterior parietal cortical atrophy. There is some tenting of the tentorial margin and enlarging the CSF space over the superior cerebellum. The sella turcica is enlarged with depression of the floor on the left side suspicious for a pituitary adenoma. There is no intra-axial or extra-axial hemorrhage. There is no midline shift. IMPRESSION: Findings suspicious for pituitary adenoma. Consider elective MRI and endocrine evaluation. While the left side of the pituitary gland is enlarged, there is no suprasellar extension that would result in visual changes. Cavum Verga, focal posterior parietal cortical atrophy, and tenting of the tentorium likely to be insignificant developmental variations. ACT 112: Negative or not required by law. The above report was generated using voice recognition software. It may contain grammatical, syntax or spelling errors. Electronically signed by: Noreen Pineda M.D. 05/23/2024 2:15 PM Liver Ultrasound 05/26/24 00:00 EXAM: US liver CLINICAL HISTORY: Elevated liver enzymes. TECHNIQUE: An ultrasound examination of the RUQ was performed Scanning was performed with the patient in a supine position. COMPARISON: None available. FINDINGS: Limited examination due to increased body habitus, panic patient, and overlying bowel gases. Liver: Difficult to penetrate. Liver size: 27.8 cm. The liver appears enlarged with echogenic parenchyma. No evidence of focal lesions, cysts, or masses in the scanned liver. Hepatic vasculature appears normal. Gallbladder: The gallbladder is visualized and appears normal in size and shape. No gallstones, wall thickening, or pericholecystic fluid were noted. The GB wall measures 1.3 m. No evidence of gallbladder wall edema or signs of acute cholecystitis. Negative sonographic Maynard's sign. Biliary Tree: Common bile duct diameter: 3.2 mm. The common bile duct is within normal limits in caliber and not dilated. Pancreas Limited views due to gas. Unremarkable visualized part. Right Kidney: The right kidney appears normal in size with preserved corticomedullary differentiation. No evidence of hydronephrosis, renal cysts, or masses. IMPRESSION: 1. Limited study due to body habitus 2. Hepatomegaly with fatty changes. 3. No evidence of acute pathology. RECOMMENDATIONS: Clinical correlation with symptoms and further evaluation as indicated. Electronically signed by Jamal Hearn 05-26-2024 07:05 AM Discharge Instructions Given to Patient (Per Discharging Provider) Jian, You were admitted and treated for very high glucose levels. You are diabetic and we are discharging you home with insulin glargine 70U daily and the oral medication metformin to help. Please continue with these medications as prescribed. it is very important that you take your medications as prescribed to keep your sugar levels under control. There was also concern for a pituitary adenoma that you will need followup with an outpatient MRI for as well as followup with Endocrinology. Your liver enzymes were also noted to be elevated. Please followup with your primary care provider about this for continued monitoring. Again, please keep close follow up with your primary care provider and also Endocrinology after discharge. Please do not hesitate to come back to the emergency room if your symptoms worsen or return. It was a pleasure taking care of you while you were here. Total Time Total Time Spent Total Time Spent (In Minutes): 60
[2024-05-27 13:57] VITALS: BP 150/78; PULSE 94
== END 2024-05-27 14:11 | disposition home or self-care (01) | DRG 638 ==
LOC: ED 11:44 → SUATTDRO 20:16 → EDINP 20:16 → 3E 21:44